=== PATIENT | female | born 1950 | race Caucasian/White ===

== ENCOUNTER 2016-05-06 15:06 | Emergency (ER) | payer MEDICARE, OTHER ==
[~2016-05-06 15:06] MED LIST: ATEN50TA2; AVAP150T; AVAP150T OR; AVAP75TA5; CENTRUM VITAMINS; CENTRUM VITAMINS PO; CITRACAL PO; CITRICAL; DIAZ5TAB; DIAZ5TAB OR; GLUC500T; GLUC500T OR; HYDR10TA2; LEVO25TABR; LIPI10TA; LOVAZA; LOVAZA PO; NEUR300C; NEUR300C OR; NEUR400C; NEUR400C OR; PERSERVISION PO; PLAV75TA2; PLAV75TA2 OR; PRESERVISION; PROP40TA PO; SYNT125T; VALI5TAB; VALT500T; [UNRECOGNIZED DRUG - OTHER]
--- NOTE | 2016-05-06 18:15 | EDDOCDS ---
Physician Documentation [facility] Name: Amie Correa Age: 65 yrs Sex: Female : 1950 Arrival Date: 05/06/2016 Time: 15:06 Bed PR Private MD: [place] [facility] [place]position: 05/06/16 18:03 Discharged to Home/Self Care. Impression: Strain of other muscle(s) and tendon(s) at lower leg level, left leg. - Condition is Stable. - Discharge Instructions: Leg Cramps, Muscle Strain. - Medication Reconciliation, Local Pharmacy Hours form. - Follow up: Ovi Yun; When: Call to arrange an appointment; Reason: Recheck today's complaints, Continuance of care. - Problem is new. - Symptoms are unchanged. Historical: - Allergies: Aspirin (blood pressure/pulse increase); NSAIDS (HR/bP increase); Latex (martinez); SALICYLATES (bp/hr increase); Caffeine-Sodium Benzoate (irregular heart beat); - Home Meds: 1. amlodipine 10 mg Oral tab 1 tab once daily 2. Avapro 300 mg Oral tab 1 tab once daily 3. carvedilol 3.125 mg oral tab 1 tab 2 times per day 4. diazepam 5 mg Oral tab 1 tab as needed 5. metformin 500 mg Oral Tb24 1 tab 2 times per day 6. Neurontin 400 mg Oral cap 1 cap 3 times per day 7. Plavix 75 mg Oral tab 1 tab once daily 8. Lipitor 20 mg Oral tab 1 tab once daily 9. 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 No barriers to communication noted, The patient speaks fluent Portuguese. - Family history: Not pertinent. - : The pt / caregiver states he / she is not on anticoagulants. Home medication list is obtained from the patient. - Exposure Risk Screening:: None identified. Vital Signs: 05/06 15:08 Pulse 70; Resp 18; Pulse Ox 100% ; Weight 83.91 kg / 184.99 lbs; Height 5 ft. 5 in. elp (165.10 cm); Pain 6/10; 18:08 BP 153 / 71; Pulse 74; Resp 18; Temp 99.4(T); Pulse Ox 98% on R/A; Pain 4/10; ar3 15:08 Body Mass Index 30.79 (83.91 kg, 165.10 cm) elp 15:08 COULD NOT GET BP, COULD NOT GET TEMP. elp MDM: 16:44 [facility] Payment Agreement was scanned into [facility] and attached to record. kf3 17:24 Financial registration complete. kf3 17:29 Tibia/Fibula Ordered. EDMS Signatures: Dispatcher [employer] EDMS Sari Tarango RN RN dls Rod Valadez, Reg Reg kf3 Mariela Valero RN RN rs3 Sukhwinder Sears, PA PA mo1 The chart was reviewed and I authenticate all verbal orders and agree with the evaluation and treatment provided.Attachments: 16:44 [facility] Payment Agreement kf3 MTDD
--- NOTE | 2016-05-06 18:15 | EDDOCDS ---
Nurse's Notes [facility] Name: Amie Correa Age: 65 yrs Sex: Female : 1950 Arrival Date: 05/06/2016 Time: 15:06 Bed PR1 / 25 Private MD: JANE Hanley Diagnosis: Strain of other muscle(s) and tendon(s) at lower leg level, left leg Presentation: 05/06 15:17 Presenting complaint: Patient states: was stepping over stuff left leg gave out, felt rs3 severe pain in Left calf. Adult Sepsis Screening: The patient does not have new or worsening altered mentation. Patient's respiratory rate is less than 22. Systolic blood pressure is greater than 100. Patient has a qSOFA score of 0- Negative Sepsis Screen. Suicide/Homicide risk assessment- the patient denies having any suicidal and/or homicidal ideations and does not present with any other emotional, behavioral or mental health complaints. Status: Patient is not a children's service worker or dependent. Transition of care: patient was not received from another setting of care. 15:17 Acuity: SANKET Level 4 rs3 15:17 Method Of Arrival: Wheelchair rs3 Triage Assessment: 15:23 General: Appears in no apparent distress. Pain: Location: left calf. rs3 Historical: - Allergies: Aspirin (blood pressure/pulse increase); NSAIDS (HR/bP increase); Latex (martinez); SALICYLATES (bp/hr increase); Caffeine-Sodium Benzoate (irregular heart beat); - Home Meds: 1. amlodipine 10 mg Oral tab 1 tab once daily 2. Avapro 300 mg Oral tab 1 tab once daily 3. carvedilol 3.125 mg oral tab 1 tab 2 times per day 4. diazepam 5 mg Oral tab 1 tab as needed 5. metformin 500 mg Oral Tb24 1 tab 2 times per day 6. Neurontin 400 mg Oral cap 1 cap 3 times per day 7. Plavix 75 mg Oral tab 1 tab once daily 8. Lipitor 20 mg Oral tab 1 tab once daily 9. 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 No barriers to communication noted, The patient speaks fluent Bulgarian. - Family history: Not pertinent. - : The pt / caregiver states he / she is not on anticoagulants. Home medication list is obtained from the patient. - Exposure Risk Screening:: None identified. Screenin:12 Screening information is obtained from the patient. Primary language is Bulgarian. Fall dls risk: No risks identified. Assistance ADL's: requires no assistance with activities of daily living. Abuse/DV Screen: The patient / caregiver reports he/she is: not in a situation that causes fear, pain or injury. Nutritional screening: No deficits noted. Advance Directives: Currently, there is no health care proxy. There is no active DNR order. There is no living will. There is no Power of Process Improvement Engineer. Advance directive information has not previously been placed in an [facility] medical record. home support is adequate. Assessment: 18:12 General: Appears uncomfortable, well developed, Behavior is cooperative. Awake, alert, dls oriented. Awake, alert, oriented. Skin warm and dry. Moves all extremities. Bilateral breath sounds clear. Respirations unlabored. Abdomen soft, non-tender. No apparent distress. The patient / caregiver is instructed regarding the plan of care and ED course. Physical assessment to be completed by PA/EDMD. Vital Signs: 15:08 Pulse 70; Resp 18; Pulse Ox 100% ; Weight 83.91 kg; Height 5 ft. 5 in. (165.10 cm); elp Pain 6/10; 18:08 BP 153 / 71; Pulse 74; Resp 18; Temp 99.4(T); Pulse Ox 98% on R/A; Pain 4/10; ar3 15:08 Body Mass Index 30.79 (83.91 kg, 165.10 cm) elp 15:08 COULD NOT GET BP, COULD NOT GET TEMP. el Vitals: 15:08 Log In Time: May 06, 2016 at 15:05. el ED Course: 15:07 Patient visited by Cassandra Alejo PCA. elp 15:07 Dayan [facility] [place] is Private Physician. elp 15:07 Patient moved to Waiting elp 15:09 Patient visited by Patchen, Cassandra, LIEUTENANT GENERAL. elp 15:09 Patient moved to Pre RCE elp 15:19 Triage Initiated rs3 16:03 Patient moved to Triage 2 dls 16:10 Patient visited by Sari Tarango RN. dls 16:44 [facility] Payment Agreement was scanned into [employer] and attached to record. kf3 17:00 Sukhwinder Sears PA is [facility]. mo1 17:00 Michele Ventura MD is Attending Physician. mo1 17:19 Patient visited by Sukhwinder Sears PA. mo1 17:26 Patient moved to TR2 ar3 18:03 Ovi Yun is Referral Physician. mo1 18:04 Patient moved to PR1 / 25 ar3 18:09 Patient visited by Jackelyn Nicholas PCA. ar3 18:12 Accompanied by Significant Other, Patient has correct armband on for positive dls identification. Bed in low position. Call light in reach. 18:14 No IV's were initiated during this patient's visit. No procedures done that require dls assistance. Order Results: There are currently no results for this order. Outcome: 18:03 Discharge ordered by Provider. mo1 18:12 The following High Risk Discharge criteria are identified: None. Discharged to home via dls wheelchair, with significant other. Condition: stable. Discharge instructions given to patient, Instructed on discharge instructions, follow up and referral plans. Demonstrated understanding of instructions, Pt was receptive of discharge instructions/ teaching. No special radiology studies were completed. 18:14 Discharge Assessment: Patient awake, alert and oriented x 3. No cognitive and/or dls functional deficits noted. Patient verbalized understanding of disposition instructions. patient administered narcotics - no. Property sent home with patient. 18:14 Patient left the ED. dls Signatures: Sari Tarango, KENDELL RN dls JesserRod, Reg Reg kf3 Mariela Valero RN RN rs3 Jackelyn Nicholas, CHARLIE LIEUTENANT GENERAL ar3 Sukhwinder Sears PA PA mo1 Cassandra Alejo, LIEUTENANT GENERAL LIEUTENANT GENERAL elp MTDD
--- NOTE | 2016-05-06 18:34 | REP ---
Clinical: Trauma. Technique: AP and lateral views of the left tibia / fibula. Findings: No definite acute fracture or dislocation is appreciated. Degenerative changes at the knee and ankle joint noted. Surrounding soft tissues unremarkable. Impression: No obvious acute fracture or dislocation. Signed by Ravi Martin MD 05/06/2016 06:26 P
--- NOTE | 2016-05-08 19:15 | EDDOCDS ---
Physician Documentation [facility] Name: Amie Correa Age: 65 yrs Sex: Female : 1950 Arrival Date: 05/06/2016 Time: 15:06 Bed PR Private MD: Dayan [facility] [place] Disposition: 05/06/16 18:03 Discharged to Home/Self Care. Impression: Strain of other muscle(s) and tendon(s) at lower leg level, left leg. - Condition is Stable. - Discharge Instructions: Leg Cramps, Muscle Strain. - Medication Reconciliation, Local Pharmacy Hours form. - Follow up: Ovi Yun; When: Call to arrange an appointment; Reason: Recheck today's complaints, Continuance of care. - Problem is new. - Symptoms are unchanged. Historical: - Allergies: Aspirin (blood pressure/pulse increase); NSAIDS (HR/bP increase); Latex (martinez); SALICYLATES (bp/hr increase); Caffeine-Sodium Benzoate (irregular heart beat); - Home Meds: 1. amlodipine 10 mg Oral tab 1 tab once daily 2. Avapro 300 mg Oral tab 1 tab once daily 3. carvedilol 3.125 mg oral tab 1 tab 2 times per day 4. diazepam 5 mg Oral tab 1 tab as needed 5. metformin 500 mg Oral Tb24 1 tab 2 times per day 6. Neurontin 400 mg Oral cap 1 cap 3 times per day 7. Plavix 75 mg Oral tab 1 tab once daily 8. Lipitor 20 mg Oral tab 1 tab once daily 9. 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 No barriers to communication noted, The patient speaks fluent Armenian. - Family history: Not pertinent. - : The pt / caregiver states he / she is not on anticoagulants. Home medication list is obtained from the patient. - Exposure Risk Screening:: None identified. Vital Signs: 05/06 15:08 Pulse 70; Resp 18; Pulse Ox 100% ; Weight 83.91 kg / 184.99 lbs; Height 5 ft. 5 in. elp (165.10 cm); Pain 6/10; 18:08 BP 153 / 71; Pulse 74; Resp 18; Temp 99.4(T); Pulse Ox 98% on R/A; Pain 4/10; ar3 15:08 Body Mass Index 30.79 (83.91 kg, 165.10 cm) elp 15:08 COULD NOT GET BP, COULD NOT GET TEMP. elp MDM: 16:44 [facility] [place] Payment Agreement was scanned into [employer] and attached to record. kf3 17:24 Financial registration complete. kf3 17:29 Tibia/Fibula Ordered. EDMS 22:32 T-Sheet-- Draft Copy was scanned into [employer] and attached to record. klr Signatures: Dispatcher [employer] EDSari Wiseman RN RN dls Rod Valadez, Reg Reg kf3 Mariela Valero RN RN rs3 Sukhwinder Sears, PA PA mo1 Annemarie Acosta klr The chart was reviewed and I authenticate all verbal orders and agree with the evaluation and treatment provided.Attachments: 16:44 [facility] Payment Agreement kf3 22:32 T-Sheet-- Draft Copy klr Chart Complete MTDD
--- NOTE | 2016-05-08 19:15 | EDDOCDS ---
Physician Documentation [facility] Name: Amie Correa Age: 65 yrs Sex: Female : 1950 Arrival Date: 05/06/2016 Time: 15:06 Bed PR Private MD: Dayan [facility] [place] Disposition: 05/06/16 18:03 Discharged to Home/Self Care. Impression: Strain of other muscle(s) and tendon(s) at lower leg level, left leg. - Condition is Stable. - Discharge Instructions: Leg Cramps, Muscle Strain. - Medication Reconciliation, Local Pharmacy Hours form. - Follow up: Ovi Yun; When: Call to arrange an appointment; Reason: Recheck today's complaints, Continuance of care. - Problem is new. - Symptoms are unchanged. Historical: - Allergies: Aspirin (blood pressure/pulse increase); NSAIDS (HR/bP increase); Latex (martinez); SALICYLATES (bp/hr increase); Caffeine-Sodium Benzoate (irregular heart beat); - Home Meds: 1. amlodipine 10 mg Oral tab 1 tab once daily 2. Avapro 300 mg Oral tab 1 tab once daily 3. carvedilol 3.125 mg oral tab 1 tab 2 times per day 4. diazepam 5 mg Oral tab 1 tab as needed 5. metformin 500 mg Oral Tb24 1 tab 2 times per day 6. Neurontin 400 mg Oral cap 1 cap 3 times per day 7. Plavix 75 mg Oral tab 1 tab once daily 8. Lipitor 20 mg Oral tab 1 tab once daily 9. 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 No barriers to communication noted, The patient speaks fluent Mongolian. - Family history: Not pertinent. - : The pt / caregiver states he / she is not on anticoagulants. Home medication list is obtained from the patient. - Exposure Risk Screening:: None identified. Vital Signs: 05/06 15:08 Pulse 70; Resp 18; Pulse Ox 100% ; Weight 83.91 kg / 184.99 lbs; Height 5 ft. 5 in. elp (165.10 cm); Pain 6/10; 18:08 BP 153 / 71; Pulse 74; Resp 18; Temp 99.4(T); Pulse Ox 98% on R/A; Pain 4/10; ar3 15:08 Body Mass Index 30.79 (83.91 kg, 165.10 cm) elp 15:08 COULD NOT GET BP, COULD NOT GET TEMP. elp MDM: 16:44 [facility] [place] Payment Agreement was scanned into [employer] and attached to record. kf3 17:24 Financial registration complete. kf3 17:29 Tibia/Fibula Ordered. EDMS 22:32 T-Sheet-- Draft Copy was scanned into [employer] and attached to record. klr Signatures: Dispatcher [employer] EDSari Wiseman RN RN dls Rod Valadez, Reg Reg kf3 Mariela Valero RN RN rs3 Sukhwinder Sears, PA PA mo1 Annemarie Acosta klr The chart was reviewed and I authenticate all verbal orders and agree with the evaluation and treatment provided.Attachments: 16:44 [facility] [place] Payment Agreement kf3 22:32 T-Sheet-- Draft Copy klr Chart Complete MTDD
--- NOTE | 2016-05-08 19:15 | EDDOCDS ---
Nurse's Notes [facility] Name: Amie Correa Age: 65 yrs Sex: Female : 1950 Arrival Date: 05/06/2016 Time: 15:06 Bed PR1 / 25 Private MD: JANE Hanley Diagnosis: Strain of other muscle(s) and tendon(s) at lower leg level, left leg Presentation: 05/06 15:17 Presenting complaint: Patient states: was stepping over stuff left leg gave out, felt rs3 severe pain in Left calf. Adult Sepsis Screening: The patient does not have new or worsening altered mentation. Patient's respiratory rate is less than 22. Systolic blood pressure is greater than 100. Patient has a qSOFA score of 0- Negative Sepsis Screen. Suicide/Homicide risk assessment- the patient denies having any suicidal and/or homicidal ideations and does not present with any other emotional, behavioral or mental health complaints. Status: Patient is not a cnc service technician or dependent. Transition of care: patient was not received from another setting of care. 15:17 Acuity: SANKET Level 4 rs3 15:17 Method Of Arrival: Wheelchair rs3 Triage Assessment: 15:23 General: Appears in no apparent distress. Pain: Location: left calf. rs3 Historical: - Allergies: Aspirin (blood pressure/pulse increase); NSAIDS (HR/bP increase); Latex (martinez); SALICYLATES (bp/hr increase); Caffeine-Sodium Benzoate (irregular heart beat); - Home Meds: 1. amlodipine 10 mg Oral tab 1 tab once daily 2. Avapro 300 mg Oral tab 1 tab once daily 3. carvedilol 3.125 mg oral tab 1 tab 2 times per day 4. diazepam 5 mg Oral tab 1 tab as needed 5. metformin 500 mg Oral Tb24 1 tab 2 times per day 6. Neurontin 400 mg Oral cap 1 cap 3 times per day 7. Plavix 75 mg Oral tab 1 tab once daily 8. Lipitor 20 mg Oral tab 1 tab once daily 9. 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 No barriers to communication noted, The patient speaks fluent Belarusian. - Family history: Not pertinent. - : The pt / caregiver states he / she is not on anticoagulants. Home medication list is obtained from the patient. - Exposure Risk Screening:: None identified. Screenin:12 Screening information is obtained from the patient. Primary language is Belarusian. Fall dls risk: No risks identified. Assistance ADL's: requires no assistance with activities of daily living. Abuse/DV Screen: The patient / caregiver reports he/she is: not in a situation that causes fear, pain or injury. Nutritional screening: No deficits noted. Advance Directives: Currently, there is no health care proxy. There is no active DNR order. There is no living will. There is no Power of Flight Operations Inspector. Advance directive information has not previously been placed in an [facility] medical record. home support is adequate. Assessment: 18:12 General: Appears uncomfortable, well developed, Behavior is cooperative. Awake, alert, dls oriented. Awake, alert, oriented. Skin warm and dry. Moves all extremities. Bilateral breath sounds clear. Respirations unlabored. Abdomen soft, non-tender. No apparent distress. The patient / caregiver is instructed regarding the plan of care and ED course. Physical assessment to be completed by PA/EDMD. Vital Signs: 15:08 Pulse 70; Resp 18; Pulse Ox 100% ; Weight 83.91 kg; Height 5 ft. 5 in. (165.10 cm); elp Pain 6/10; 18:08 BP 153 / 71; Pulse 74; Resp 18; Temp 99.4(T); Pulse Ox 98% on R/A; Pain 4/10; ar3 15:08 Body Mass Index 30.79 (83.91 kg, 165.10 cm) elp 15:08 COULD NOT GET BP, COULD NOT GET TEMP. el Vitals: 15:08 Log In Time: May 06, 2016 at 15:05. el ED Course: 15:07 Patient visited by Cassandra Alejo PCA. elp 15:07 Dayan [facility] [place] is Private Physician. elp 15:07 Patient moved to Waiting elp 15:09 Patient visited by Cassandra Alejo PCA. elp 15:09 Patient moved to Pre RCE elp 15:19 Triage Initiated rs3 16:03 Patient moved to Triage 2 dls 16:10 Patient visited by Sari Tarango RN. dls 16:44 [facility] Payment Agreement was scanned into [employer] and attached to record. kf3 17:00 Sukhwinder Sears PA is PHCP. mo1 17:00 Michele Ventrua MD is Attending Physician. mo1 17:19 Patient visited by Sukhwinder Sears PA. mo1 17:26 Patient moved to TR2 ar3 18:03 Ovi Yun is Referral Physician. mo1 18:04 Patient moved to PR1 / 25 ar3 18:09 Patient visited by Jackelyn Nicholas PCA. ar3 18:12 Accompanied by Significant Other, Patient has correct armband on for positive dls identification. Bed in low position. Call light in reach. 18:14 No IV's were initiated during this patient's visit. No procedures done that require dls assistance. 18:34 Tibia/Fibula Returned. EDMS 22:32 T-Sheet-- Draft Copy was scanned into [employer] and attached to record. klr Order Results: Radiology Order: Tibia/Fibula Test: Tibia/Fibula REASON FOR EXAMINATION: Trauma; Clinical: Trauma.; ; Technique: AP and lateral views of the left tibia / fibula.; ; Findings:; No definite acute fracture or dislocation is appreciated. Degenerative changes; at the knee and ankle joint noted. Surrounding soft tissues unremarkable.; ; Impression:; No obvious acute fracture or dislocation.; ; ; Signed by; Ravi Martin MD 05/06/2016 06:26 P; Outcome: 18:03 Discharge ordered by Provider. mo1 18:12 The following High Risk Discharge criteria are identified: None. Discharged to home via dls wheelchair, with significant other. Condition: stable. Discharge instructions given to patient, Instructed on discharge instructions, follow up and referral plans. Demonstrated understanding of instructions, Pt was receptive of discharge instructions/ teaching. No special radiology studies were completed. 18:14 Discharge Assessment: Patient awake, alert and oriented x 3. No cognitive and/or dls functional deficits noted. Patient verbalized understanding of disposition instructions. patient administered narcotics - no. Property sent home with patient. 18:14 Patient left the ED. dls Signatures: Dispatcher [employer] EDMS Sukhdeep, Sari, KENDELL RN dls AntelmomgRod webber, Reg Reg kf3 [facility],KENDELL Sierra RN rs3 Jackelyn Nicholas, RECLAMATION SUPERVISOR RECLAMATION SUPERVISOR ar3 Sukhwinder Sears PA PA mo1 Melo, Cassandra, RECLAMATION SUPERVISOR RECLAMATION SUPERVISOR elp Annemarie Acosta Chart Complete MTDD
== END 2016-05-06 18:14 | disposition home or self-care (01) ==
LOC: M ED 15:06
DX: S86.912A Strain of unspecified muscle(s) and tendon(s) at lower leg level, left leg, initial encounter (principal); X50.9XXA Other and unspecified overexertion or strenuous movements or postures, initial encounter; Y92.019 Unspecified place in single-family (private) house as the place of occurrence of the external cause; Y93.01 Activity, walking, marching and hiking; Y99.8 Other external cause status; F41.9 Anxiety disorder, unspecified; Z85.3 Personal history of malignant neoplasm of breast; I25.10 Atherosclerotic heart disease of native coronary artery without angina pectoris; E11.9 Type 2 diabetes mellitus without complications; E78.00 Pure hypercholesterolemia, unspecified; I10 Essential (primary) hypertension; R56.9 Unspecified convulsions; Z79.899 Other long term (current) drug therapy; Z79.84 Long term (current) use of oral hypoglycemic drugs; Z79.02 Long term (current) use of antithrombotics/antiplatelets; Z88.6 Allergy status to analgesic agent; Z91.040 Latex allergy status; Z88.8 Allergy status to other drugs, medicaments and biological substances

== ENCOUNTER → 2016-05-09 | Outpatient (CLI) | payer MEDICARE, OTHER ==
--- NOTE | 2016-05-09 14:36 | REP ---
LEFT LOWER EXTREMITY VENOUS DOPPLER: 05/09/2016 INDICATION: Left leg pain and swelling, exclude deep venous thrombosis. TECHNIQUE: Color flow Doppler, spectral wave, and singer-scale imaging were used to evaluate the deep lower extremity veins at common femoral, superficial femoral, and popliteal venous levels. FINDINGS: There is normal compressibility of veins at the above stated levels. There is normal response to augmentation of flow. The profunda femoris vein is also patent. IMPRESSION: No evidence of DVT in the left lower extremity. MTDD
== END ==
LOC: M RAD 12:46
DX: M79.89 Other specified soft tissue disorders (principal); M79.662 Pain in left lower leg

== ENCOUNTER 2016-05-12 19:28 | Emergency (ER) | payer MEDICARE, OTHER ==
--- NOTE | 2016-05-12 22:42 | EDDOCDS ---
Physician Documentation [facility] Name: Amie Correa Age: 66 yrs Sex: Female : 1950 Arrival Date: 05/12/2016 Time: 19:28 Bed TR8 Private MD: Dayan [facility] [place] Disposition: 05/12/16 22:28 Discharged to Home/Self Care. Impression: Other injury of other muscle(s) and tendon(s) at lower leg level, left leg. - Condition is Stable. - Discharge Instructions: Contusion, Muscle Strain. - Prescriptions for oxycodone 5 mg Oral Tablet - take 1 tablet by ORAL route every 4 hours As needed MDD: 6 tabs; 20 tablet. - Medication Reconciliation, Local Pharmacy Hours form. - Follow up: Song Ledesma; When: Call to arrange an appointment; Reason: Recheck today's complaints, Continuance of care. - Problem is new. - Symptoms are unchanged. Historical: - Allergies: SALICYLATES (bp/hr increase); NSAIDS (HR/bP increase); Latex (martinez); Caffeine-Sodium Benzoate (irregular heart beat); Aspirin (blood pressure/pulse increase); - Home Meds: 1. amlodipine 10 mg Oral tab 1 tab once daily (Last dose: 05/12/2016) 2. Avapro 300 mg Oral tab 1 tab once daily (Last dose: 05/12/2016) 3. carvedilol 3.125 mg oral tab 1 tab 2 times per day (Last dose: 05/12/2016 08:00) 4. diazepam 5 mg Oral tab 1 tab as needed (Last dose: Unknown) 5. labetalol 100 mg Oral tab 1 tab takes one dose if pressure not decreased takes a second dose (Last dose: Unknown) 6. Lipitor 20 mg Oral tab 1 tab once daily (Last dose: 05/12/2016) 7. metformin 500 mg Oral Tb24 1 tab 2 times per day (Last dose: 05/12/2016 08:00) 8. Neurontin 400 mg Oral cap 1 cap 3 times per day (Last dose: 05/12/2016 12:00) 9. 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 No barriers to communication noted, The patient speaks fluent Nigerian, Speaks appropriately for age. - Family history: Not pertinent. - : The pt / caregiver states he / she is on anticoagulants: Plavix. Home medication list is obtained from the patient. - Exposure Risk Screening:: None identified. Vital Signs: 05/12 19:31 BP 133 / 70 RA Sitting (auto/reg); Pulse 70 RA; Resp 18 S; Temp 97.5(O); Pulse Ox 96% mt4 on R/A; Weight 81.65 kg / 180.01 lbs (R); Height 5 ft. 5 in. (165.10 cm) (R); Pain 5/10; 19:31 Body Mass Index 29.95 (81.65 kg, 165.10 cm) mt4 MDM: 22:40 Financial registration complete. gjb Signatures: Sameera Wilson, RN RN kmg1 Marvin Christian RN RN Sukhwinder Bartlett PA PA mo1 Carey Conn BAILEY
--- NOTE | 2016-05-12 22:43 | EDDOCDS ---
Nurse's Notes [facility] Name: Amie Correa Age: 66 yrs Sex: Female : 1950 Arrival Date: 05/12/2016 Time: 19:28 Bed TR8 Private MD: JANE Hanley Diagnosis: Other injury of other muscle(s) and tendon(s) at lower leg level, left leg Presentation: 05/12 19:35 Presenting complaint: Patient states: Injured left lower leg last Saturday. Was seen here km for same. Followed up at [facility] and went to PT. Now has increased swelling, pain, and bruising. Patient is on Plavix. Adult Sepsis Screening: The patient does not have new or worsening altered mentation. Patient's respiratory rate is less than 22. Systolic blood pressure is greater than 100. Patient has a qSOFA score of 0- Negative Sepsis Screen. Suicide/Homicide risk assessment- the patient denies having any suicidal and/or homicidal ideations and does not present with any other emotional, behavioral or mental health complaints. Status: Patient is not a food service team member or dependent. Transition of care: patient was not received from another setting of care. 19:35 [place]: [place] 4 [facility] [place] Method Of Arrival: [place] [facility] [place] Assessment: 19:41 General: Appears in no apparent distress, comfortable, Behavior is appropriate for age, kmg1 cooperative. Pain: Location: left calf. Musculoskeletal: Reports pain in left leg. Historical: - Allergies: SALICYLATES (bp/hr increase); NSAIDS (HR/bP increase); Latex (martinez); Caffeine-Sodium Benzoate (irregular heart beat); Aspirin (blood pressure/pulse increase); - Home Meds: 1. amlodipine 10 mg Oral tab 1 tab once daily (Last dose: 05/12/2016) 2. Avapro 300 mg Oral tab 1 tab once daily (Last dose: 05/12/2016) 3. carvedilol 3.125 mg oral tab 1 tab 2 times per day (Last dose: 05/12/2016 08:00) 4. diazepam 5 mg Oral tab 1 tab as needed (Last dose: Unknown) 5. labetalol 100 mg Oral tab 1 tab takes one dose if pressure not decreased takes a second dose (Last dose: Unknown) 6. Lipitor 20 mg Oral tab 1 tab once daily (Last dose: 05/12/2016) 7. metformin 500 mg Oral Tb24 1 tab 2 times per day (Last dose: 05/12/2016 08:00) 8. Neurontin 400 mg Oral cap 1 cap 3 times per day (Last dose: 05/12/2016 12:00) 9. 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 No barriers to communication noted, The patient speaks fluent Hebrew, Speaks appropriately for age. - Family history: Not pertinent. - : The pt / caregiver states he / she is on anticoagulants: Plavix. Home medication list is obtained from the patient. - Exposure Risk Screening:: None identified. Screenin:39 Screening information is obtained from the patient. Fall risk: At risk due to poor eye cz sight. Assistance ADL's: requires no assistance with activities of daily living. Abuse/DV Screen: The patient / caregiver reports he/she is: not in a situation that causes fear, pain or injury. Nutritional screening: No deficits noted. home support is adequate. Assessment: 22:39 Reassessment: Patient appears in no apparent distress at this time. pt reassured after cz seeing P.A.. Vital Signs: 19:31 BP 133 / 70 RA Sitting (auto/reg); Pulse 70 RA; Resp 18 S; Temp 97.5(O); Pulse Ox 96% mt4 on R/A; Weight 81.65 kg (R); Height 5 ft. 5 in. (165.10 cm) (R); Pain 5/10; 19:31 Body Mass Index 29.95 (81.65 kg, 165.10 cm) mt4 Vitals: 19:31 Log In Time: May 12, 2016 at 19:28. mt4 ED Course: 19:30 Patient visited by Cyndie Irvin. mt4 19:30 Patient moved to Waiting mt4 19:31 JANE Hanley is Private Physician. mt4 19:33 Patient moved to Pre RCE mt4 19:38 Triage Initiated kmg1 21:53 Patient moved to Triage 1 jf3 22:04 Sukhwinder Sears PA is PHCP. mo1 22:04 Ted Ya DO is Attending Physician. mo1 22:27 Patient visited by Sukhwinder Sears PA. mo1 22:28 Song Ledesma is Referral Physician. mo1 22:39 Patient moved to TR8 cz 22:39 The patient / caregiver is instructed regarding the plan of care and ED course. cz 22:39 No IV's were initiated during this patient's visit. No procedures done that require cz assistance. Order Results: There are currently no results for this order. Outcome: 22:28 Discharge ordered by Provider. mo1 22:39 Discharge Assessment: Patient awake, alert and oriented x 3. No cognitive and/or cz functional deficits noted. Patient verbalized understanding of disposition instructions. patient administered narcotics - no. The following High Risk Discharge criteria are identified: None. Discharged to home ambulatory. Condition: stable. Discharge instructions given to patient, Instructed on discharge instructions, follow up and referral plans. medication usage, Demonstrated understanding of instructions, medications, Pt was receptive of discharge instructions/ teaching. Prescriptions given X 1. No special radiology studies were completed. Property :Personal belongings accompany Pt. 22:41 Patient left the ED. Signatures: Sameera Wilson, RN RN [facility] [place] Marvin Christian, KENDELL RDZ cz Albaro Cyndie mt4 Sukhwinder Sears PA PA mo1 Sincere Flores,KENDELL RDZ jf3 [facility]ERS[facility]
--- NOTE | 2016-05-14 23:43 | EDDOCDS ---
Nurse's Notes [facility] Name: Amie Correa Age: 66 yrs Sex: Female : 1950 Arrival Date: 05/12/2016 Time: 19:28 Bed TR8 Private MD: JANE Hanley Diagnosis: Other injury of other muscle(s) and tendon(s) at lower leg level, left leg Presentation: 05/12 19:35 Presenting complaint: Patient states: Injured left lower leg last Saturday. Was seen here km for same. Followed up at [facility] and went to PT. Now has increased swelling, pain, and bruising. Patient is on Plavix. Adult Sepsis Screening: The patient does not have new or worsening altered mentation. Patient's respiratory rate is less than 22. Systolic blood pressure is greater than 100. Patient has a qSOFA score of 0- Negative Sepsis Screen. Suicide/Homicide risk assessment- the patient denies having any suicidal and/or homicidal ideations and does not present with any other emotional, behavioral or mental health complaints. 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 Transition of care: patient was not received from another setting of care. 19:35 Acuity: [place] [facility] [place] Method Of Arrival: Walkin/Carried/As[place] [facility] [place] Assessment: 19:41 General: Appears in no apparent distress, comfortable, Behavior is appropriate for age, kmg1 cooperative. Pain: Location: left calf. Musculoskeletal: Reports pain in left leg. Historical: - Allergies: SALICYLATES (bp/hr increase); NSAIDS (HR/bP increase); Latex (martinez); Caffeine-Sodium Benzoate (irregular heart beat); Aspirin (blood pressure/pulse increase); - Home Meds: 1. amlodipine 10 mg Oral tab 1 tab once daily (Last dose: 05/12/2016) 2. Avapro 300 mg Oral tab 1 tab once daily (Last dose: 05/12/2016) 3. carvedilol 3.125 mg oral tab 1 tab 2 times per day (Last dose: 05/12/2016 08:00) 4. diazepam 5 mg Oral tab 1 tab as needed (Last dose: Unknown) 5. labetalol 100 mg Oral tab 1 tab takes one dose if pressure not decreased takes a second dose (Last dose: Unknown) 6. Lipitor 20 mg Oral tab 1 tab once daily (Last dose: 05/12/2016) 7. metformin 500 mg Oral Tb24 1 tab 2 times per day (Last dose: 05/12/2016 08:00) 8. Neurontin 400 mg Oral cap 1 cap 3 times per day (Last dose: 05/12/2016 12:00) 9. 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 No barriers to communication noted, The patient speaks fluent [place], Speaks appropriately for age. - Family history: Not pertinent. - : The pt / caregiver states he / she is on anticoagulants: Plavix. Home medication list is obtained from the patient. - Exposure Risk Screening:: None identified. Screenin:39 Screening information is obtained from the patient. Fall risk: At risk due to poor eye cz sight. Assistance ADL's: requires no assistance with activities of daily living. Abuse/DV Screen: The patient / caregiver reports he/she is: not in a situation that causes fear, pain or injury. Nutritional screening: No deficits noted. home support is adequate. Assessment: 22:39 Reassessment: Patient appears in no apparent distress at this time. pt reassured after cz seeing P.A.. Vital Signs: 19:31 BP 133 / 70 RA Sitting (auto/reg); Pulse 70 RA; Resp 18 S; Temp 97.5(O); Pulse Ox 96% mt4 on R/A; Weight 81.65 kg (R); Height 5 ft. 5 in. (165.10 cm) (R); Pain 5/10; 19:31 Body Mass Index 29.95 (81.65 kg, 165.10 cm) mt4 Vitals: 19:31 Log In Time: May 12, 2016 at 19:28. mt4 ED Course: 19:30 Patient visited by Cyndie Irvin. mt4 19:30 Patient moved to Waiting mt4 19:31 JANE Hanley is Private Physician. mt4 19:33 Patient moved to Pre RCE mt4 19:38 Triage Initiated kmg1 21:53 Patient moved to Triage 1 jf3 22:04 Sukhwinder Sears PA is PHCP. mo1 22:04 Ted Ya DO is Attending Physician. mo1 22:27 Patient visited by Sukhwinder Sears PA. mo1 22:28 Song Ledesma is Referral Physician. mo1 22:39 Patient moved to TR8 cz 22:39 The patient / caregiver is instructed regarding the plan of care and ED course. cz 22:39 No IV's were initiated during this patient's visit. No procedures done that require cz assistance. 22:52 [facility] Payment Agreement was scanned into [employer] and attached to record. gjb 05/13 17:46 T-Sheet-- Draft Copy was scanned into [employer] and attached to record. klr Order Results: There are currently no results for this order. Outcome: 05/12 22:28 Discharge ordered by Provider. mo1 22:39 Discharge Assessment: Patient awake, alert and oriented x 3. No cognitive and/or cz functional deficits noted. Patient verbalized understanding of disposition instructions. patient administered narcotics - no. The following High Risk Discharge criteria are identified: None. Discharged to home ambulatory. Condition: stable. Discharge instructions given to patient, Instructed on discharge instructions, follow up and referral plans. medication usage, Demonstrated understanding of instructions, medications, Pt was receptive of discharge instructions/ teaching. Prescriptions given X 1. No special radiology studies were completed. Property :Personal belongings accompany Pt. 22:41 Patient left the ED. cz Signatures: Sameera Wilson RN RN [facility] [place] Marvin Christian RN RN cz Thomas, Melissa mt4 Sukhwinder Sears PA PA mo1 Sincere Flores,KENDELL RN Carey Rai Kathie klr Chart Complete MTDD
--- NOTE | 2016-05-14 23:43 | EDDOCDS ---
Physician Documentation [facility] Name: Amie Correa Age: 66 yrs Sex: Female : 1950 Arrival Date: 05/12/2016 Time: 19:28 Bed TR8 Private MD: Dayan [facility] [place] Disposition: 05/12/16 22:28 Discharged to Home/Self Care. Impression: Other injury of other muscle(s) and tendon(s) at lower leg level, left leg. - Condition is Stable. - Discharge Instructions: Contusion, Muscle Strain. - Prescriptions for oxycodone 5 mg Oral Tablet - take 1 tablet by ORAL route every 4 hours As needed MDD: 6 tabs; 20 tablet. - Medication Reconciliation, Local Pharmacy Hours form. - Follow up: Song Ledesma; When: Call to arrange an appointment; Reason: Recheck today's complaints, Continuance of care. - Problem is new. - Symptoms are unchanged. Historical: - Allergies: SALICYLATES (bp/hr increase); NSAIDS (HR/bP increase); Latex (martinez); Caffeine-Sodium Benzoate (irregular heart beat); Aspirin (blood pressure/pulse increase); - Home Meds: 1. amlodipine 10 mg Oral tab 1 tab once daily (Last dose: 05/12/2016) 2. Avapro 300 mg Oral tab 1 tab once daily (Last dose: 05/12/2016) 3. carvedilol 3.125 mg oral tab 1 tab 2 times per day (Last dose: 05/12/2016 08:00) 4. diazepam 5 mg Oral tab 1 tab as needed (Last dose: Unknown) 5. labetalol 100 mg Oral tab 1 tab takes one dose if pressure not decreased takes a second dose (Last dose: Unknown) 6. Lipitor 20 mg Oral tab 1 tab once daily (Last dose: 05/12/2016) 7. metformin 500 mg Oral Tb24 1 tab 2 times per day (Last dose: 05/12/2016 08:00) 8. Neurontin 400 mg Oral cap 1 cap 3 times per day (Last dose: 05/12/2016 12:00) 9. 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 No barriers to communication noted, The patient speaks fluent Brazilian, Speaks appropriately for age. - Family history: Not pertinent. - : The pt / caregiver states he / she is on anticoagulants: Plavix. Home medication list is obtained from the patient. - Exposure Risk Screening:: None identified. Vital Signs: 05/12 19:31 BP 133 / 70 RA Sitting (auto/reg); Pulse 70 RA; Resp 18 S; Temp 97.5(O); Pulse Ox 96% mt4 on R/A; Weight 81.65 kg / 180.01 lbs (R); Height 5 ft. 5 in. (165.10 cm) (R); Pain 5/10; 19:31 Body Mass Index 29.95 (81.65 kg, 165.10 cm) mt4 MDM: 22:40 Financial registration complete. [facility] 22:52 [facility] Payment Agreement was scanned into [employer] and attached to record. [facility] 05/13 17:46 T-Sheet-- Draft Copy was scanned into [employer] and attached to record. klr Signatures: Sameera Wilson RN RN kmg1 Marvin Christian RN RN cz O'Hagan, Michael, PA PA marvel1 Carey Conn Annemarie Vargas The chart was reviewed and I authenticate all verbal orders and agree with the evaluation and treatment provided.Attachments: 05/12 22:52 [facility] Payment Agreement [facility] 05/13 17:46 T-Sheet-- Draft Copy klr Chart Complete MTDD
--- NOTE | 2016-05-14 23:43 | EDDOCDS ---
Physician Documentation [facility] Name: Amie Correa Age: 66 yrs Sex: Female : 1950 Arrival Date: 05/12/2016 Time: 19:28 Bed TR8 Private MD: Dayan [facility] Disposition: 05/12/16 22:28 Discharged to Home/Self Care. Impression: Other injury of other muscle(s) and tendon(s) at lower leg level, left leg. - Condition is Stable. - Discharge Instructions: Contusion, Muscle Strain. - Prescriptions for oxycodone 5 mg Oral Tablet - take 1 tablet by ORAL route every 4 hours As needed MDD: 6 tabs; 20 tablet. - Medication Reconciliation, Local Pharmacy Hours form. - Follow up: Song Ledesma; When: Call to arrange an appointment; Reason: Recheck today's complaints, Continuance of care. - Problem is new. - Symptoms are unchanged. Historical: - Allergies: SALICYLATES (bp/hr increase); NSAIDS (HR/bP increase); Latex (martinez); Caffeine-Sodium Benzoate (irregular heart beat); Aspirin (blood pressure/pulse increase); - Home Meds: 1. amlodipine 10 mg Oral tab 1 tab once daily (Last dose: 05/12/2016) 2. Avapro 300 mg Oral tab 1 tab once daily (Last dose: 05/12/2016) 3. carvedilol 3.125 mg oral tab 1 tab 2 times per day (Last dose: 05/12/2016 08:00) 4. diazepam 5 mg Oral tab 1 tab as needed (Last dose: Unknown) 5. labetalol 100 mg Oral tab 1 tab takes one dose if pressure not decreased takes a second dose (Last dose: Unknown) 6. Lipitor 20 mg Oral tab 1 tab once daily (Last dose: 05/12/2016) 7. metformin 500 mg Oral Tb24 1 tab 2 times per day (Last dose: 05/12/2016 08:00) 8. Neurontin 400 mg Oral cap 1 cap 3 times per day (Last dose: 05/12/2016 12:00) 9. 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 No barriers to communication noted, The patient speaks fluent North Korean, Speaks appropriately for age. - Family history: Not pertinent. - : The pt / caregiver states he / she is on anticoagulants: Plavix. Home medication list is obtained from the patient. - Exposure Risk Screening:: None identified. Vital Signs: 05/12 19:31 BP 133 / 70 RA Sitting (auto/reg); Pulse 70 RA; Resp 18 S; Temp 97.5(O); Pulse Ox 96% mt4 on R/A; Weight 81.65 kg / 180.01 lbs (R); Height 5 ft. 5 in. (165.10 cm) (R); Pain 5/10; 19:31 Body Mass Index 29.95 (81.65 kg, 165.10 cm) mt4 MDM: 22:40 Financial registration complete. [facility] 22:52 [facility] Payment Agreement was scanned into [employer] and attached to record. [facility] 05/13 17:46 T-Sheet-- Draft Copy was scanned into [employer] and attached to record. klr Signatures: Sameera Wilson RN RN kmg1 Marvin Christian RN RN cz O'Hagan, Michael, PA PA marvel1 Carey Conn Annemarie Vargas The chart was reviewed and I authenticate all verbal orders and agree with the evaluation and treatment provided.Attachments: 05/12 22:52 [facility] Payment Agreement [facility] 05/13 17:46 T-Sheet-- Draft Copy klr Chart Complete MTDD
== END 2016-05-12 22:41 | disposition home or self-care (01) ==
LOC: M ED 19:28
DX: S86.812D Strain of other muscle(s) and tendon(s) at lower leg level, left leg, subsequent encounter (principal); X58.XXXD Exposure to other specified factors, subsequent encounter; Y92.89 Other specified places as the place of occurrence of the external cause; F41.9 Anxiety disorder, unspecified; Z85.3 Personal history of malignant neoplasm of breast; I10 Essential (primary) hypertension; I25.10 Atherosclerotic heart disease of native coronary artery without angina pectoris; E11.9 Type 2 diabetes mellitus without complications; E78.00 Pure hypercholesterolemia, unspecified; Z79.899 Other long term (current) drug therapy; Z79.84 Long term (current) use of oral hypoglycemic drugs; Z79.02 Long term (current) use of antithrombotics/antiplatelets; Z88.6 Allergy status to analgesic agent; Z88.8 Allergy status to other drugs, medicaments and biological substances; Z91.040 Latex allergy status

== ENCOUNTER → 2016-06-27 | Outpatient (CLI) | payer MEDICARE, OTHER ==
--- NOTE | 2016-06-28 13:03 | RADONC ---
RADIATION ONCOLOGY FOLLOWUP NOTE DATE: 06/27/2016 CHART NUMBER: [id number]. DIAGNOSIS: Breast cancer. STAGE: Recurrent. ECOG PERFORMANCE STATUS: 1 FOLLOWUP NOTE: Ms. Correa is truly delightful 66-year-old white female with the diagnosis of multiple bilateral breast cancers who is presenting to us today for routine followup visit 2-1/2 years post completion of bilateral mastectomies. The patient presents today reporting that generally she is doing quite well with regards to her breast lesions. She continues to have macular degeneration however and has now lost more vision. 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 REVIEW OF SYSTEMS: The patient's review of systems is otherwise noncontributory. Except for her visual disturbances, she denies nausea, vomiting, fevers, chills, night sweats, diplopia, headaches, anxiety or depression, anorexia, weight loss, chest pain, urinary or bowel difficulties, bone pain or neurological problems except for macular degeneration. PHYSICAL EXAMINATION: The patient is a well-developed, well-nourished white female in no acute distress. HEENT exam is normocephalic, atraumatic. Extraocular movements are intact. There is no palpable cervical, supraclavicular, infraclavicular, axillary, or inguinal lymphadenopathy present. Lungs are clear to auscultation and percussion. Heart has a regular rate and rhythm. Abdomen is benign with no hepatosplenomegaly, masses, or tenderness. Chest wall examination reveals bilateral mastectomy scars present. There is no evidence of nodularity, ulceration, residual or recurrent disease. Skeletal examination reveals no tenderness to pressure or percussion of the bony skeleton. Extremities reveal no clubbing, cyanosis, or edema. Neurologic exam is grossly intact, as is the remainder of the physical examination. The patient is clinically JORGE at this time and will be seen by us again in 1 year for further followup. She will also continue be followed by her other physicians as well. cc: *Raphael Bear MD
== END ==
LOC: M ONCR 10:15
PROVIDERS: ATTEND Radiology Radiation Oncology
DX: C50.211 Malignant neoplasm of upper-inner quadrant of right female breast (principal); D05.12 Intraductal carcinoma in situ of left breast

== ENCOUNTER 2016-10-06 23:04 | Emergency (ER) | payer MEDICARE, OTHER ==
[~2016-10-06] VITALS: Ht 162.6 cm; Wt 79.5 kg
[2016-10-06] MEDS ORDERED: LIPI20TA PO (23:28)
[2016-10-06] MEDS ORDERED: LABE10TAB PO (23:28)
[2016-10-06] MEDS ORDERED: CARV3.12 PO (23:28)
[2016-10-06] MEDS ORDERED: AMLO10TA2 PO (23:28)
[2016-10-07 00:07] LABS: BASO # 0.1 K/mm3 (0.0-0.2); BASO % 1.2 % (0.0-1.0); EOS # 0.2 K/mm3 (0.0-0.50); EOS % 2.3 % (0.0-3.0); LARGE UNSTAINED CELL # 0.2 K/mm3 (0.0-0.4); LARGE UNSTAINED CELL % 2.7 % (0.0-4.0); LYMPH # 1.4 K/mm3 (1.5-4.5); LYMPH % 21.4 % (24.0-44.0); MEAN CORPUSCULAR HEMOGLOBIN 30.2 pg (27.0-33.0); MEAN CORPUSCULAR HGB CONC 33.2 g/dl (32.0-36.5); MEAN CORPUSCULAR VOLUME 90.8 fl (80.0-96.0); MONO # 0.6 K/mm3 (0.0-0.8); MONO % 8.6 % (0.0-5.0); NEUTROPHILS # 4.2 K/mm3 (1.8-7.7); NEUTROPHILS % 63.9 % (36.0-66.0); PLATELET COUNT, AUTOMATED 245 k/mm3 (150-450); RED CELL DISTRIBUTION WIDTH 13.7 % (11.5-14.5); WHITE BLOOD COUNT 6.6 K/mm3 (4.0-10.0)
[2016-10-07 00:31] LABS: ANION GAP 7 MEQ/L (8-16); BLOOD UREA NITROGEN 13 MG/DL (7-18); CALCIUM LEVEL 9.4 MG/DL (8.8-10.2); CARBON DIOXIDE LEVEL 27 MEQ/L (21-32); CHLORIDE LEVEL 107 MEQ/L (98-107); CREATININE FOR GFR 0.86 MG/DL (0.55-1.02); GLOMERULAR FILTRATION RATE > 60.0 (>45); GLUCOSE, FASTING 108 MG/DL (80-110); POTASSIUM SERUM 3.9 MEQ/L (3.5-5.1); SODIUM LEVEL 141 MEQ/L (136-145)
[2016-10-07 03:22] VITALS: BP 160/71
--- NOTE | 2016-10-09 08:39 | ECGEPIP ---
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
== END 2016-10-07 04:01 | disposition home or self-care (01) ==
LOC: M ED 23:04
DX: I10 Essential (primary) hypertension (principal); I25.2 Old myocardial infarction; E11.9 Type 2 diabetes mellitus without complications; Z82.49 Family history of ischemic heart disease and other diseases of the circulatory system; R94.31 Abnormal electrocardiogram [ECG] [EKG]; Z79.84 Long term (current) use of oral hypoglycemic drugs; Z88.6 Allergy status to analgesic agent; Z88.7 Allergy status to serum and vaccine; Z91.040 Latex allergy status; Z91.018 Allergy to other foods

== ENCOUNTER 2016-12-03 18:56 | Emergency (ER) | payer MEDICARE, OTHER ==
[~2016-12-03] VITALS: Ht 165.1 cm; Wt 84.1 kg
[~2016-12-03 18:56] MED LIST changes: +AMLO10TA2 PO; +CARV3.12 PO; +LABE10TAB PO; +LIPI20TA PO
[2016-12-03 19:50] LABS: BASO % 0.6 % (0.0-1.0); EOS # 0.2 K/mm3 (0.0-0.50); EOS % 2.9 % (0.0-3.0); LARGE UNSTAINED CELL # 0.1 K/mm3 (0.0-0.4); LARGE UNSTAINED CELL % 1.9 % (0.0-4.0); LYMPH # 1.5 K/mm3 (1.5-4.5); LYMPH % 22.4 % (24.0-44.0); MEAN CORPUSCULAR HEMOGLOBIN 31.1 pg (27.0-33.0); MEAN CORPUSCULAR VOLUME 91.4 fl (80.0-96.0); MONO # 0.6 K/mm3 (0.0-0.8); MONO % 8.8 % (0.0-5.0); NEUTROPHILS # 3.9 K/mm3 (1.8-7.7); NEUTROPHILS % 63.5 % (36.0-66.0); PLATELET COUNT, AUTOMATED 240 k/mm3 (150-450); RED CELL DISTRIBUTION WIDTH 13.8 % (11.5-14.5); WHITE BLOOD COUNT 6.2 K/mm3 (4.0-10.0)
[2016-12-03 21:01] LABS: INR 0.85
[2016-12-03 21:16] LABS: ALBUMIN/GLOBULIN RATIO 1.33 (1.00-1.93); ALKALINE PHOSPHATASE 122 U/L (45-117); ALT/SGPT 41 U/L (12-78); ANION GAP 12 MEQ/L (8-16); AST/SGOT 22 U/L (15-37); BILIRUBIN,DIRECT 0.1 MG/DL (0.0-0.2); BILIRUBIN,TOTAL 0.5 MG/DL (0.2-1.0); BLOOD UREA NITROGEN 13 MG/DL (7-18); CARBON DIOXIDE LEVEL 24 MEQ/L (21-32); CHLORIDE LEVEL 105 MEQ/L (98-107); CREATININE FOR GFR 0.77 MG/DL (0.55-1.02); FREE T4 0.95 NG/DL (0.76-1.46); GLOMERULAR FILTRATION RATE > 60.0 (>45); GLUCOSE, FASTING 119 MG/DL (80-110); POTASSIUM SERUM 3.9 MEQ/L (3.5-5.1); SODIUM LEVEL 141 MEQ/L (136-145)
[2016-12-03] MEDS ORDERED: cloNIDine 0.1 MG TAB PO ONE (22:15)
[2016-12-04 00:55] VITALS: BP 148/80
--- NOTE | 2016-12-04 07:38 | REP ---
Portable chest, 08:07 p.m., single AP view, the patient upright: Comparison is the PA and lateral chest dated 2015. The lung zapata are clear. The cardiac size is normal. The jeanette, mediastinum, and bony thorax are unremarkable. Impression: Negative portable chest. There is no interval change. Signed by Tony Velarde MD 12/04/2016 07:30 A
--- NOTE | 2016-12-04 16:01 | ECGEPIP ---
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
--- NOTE | 2016-12-04 16:02 | ECGEPIP ---
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
== END 2016-12-04 00:56 | disposition home or self-care (01) ==
LOC: M ED 18:56
DX: R07.89 Other chest pain (principal); E11.9 Type 2 diabetes mellitus without complications; I10 Essential (primary) hypertension; E78.5 Hyperlipidemia, unspecified; Z85.3 Personal history of malignant neoplasm of breast; G43.909 Migraine, unspecified, not intractable, without status migrainosus; M79.7 Fibromyalgia; Z90.10 Acquired absence of unspecified breast and nipple; Z79.84 Long term (current) use of oral hypoglycemic drugs; Z79.899 Other long term (current) drug therapy; Z88.6 Allergy status to analgesic agent; Z91.018 Allergy to other foods; Z91.040 Latex allergy status; Z88.7 Allergy status to serum and vaccine

== ENCOUNTER 2016-12-07 18:25 | Emergency (ER) | payer MEDICARE, OTHER ==
[~2016-12-07] VITALS: Ht 165.1 cm; Wt 84.1 kg
[2016-12-07 20:11] LABS: BASO # 0.1 K/mm3 (0.0-0.2); BASO % 0.9 % (0.0-1.0); EOS # 0.1 K/mm3 (0.0-0.50); EOS % 1.5 % (0.0-3.0); LARGE UNSTAINED CELL # 0.2 K/mm3 (0.0-0.4); LARGE UNSTAINED CELL % 2.3 % (0.0-4.0); LYMPH # 1.4 K/mm3 (1.5-4.5); LYMPH % 20.8 % (24.0-44.0); MEAN CORPUSCULAR HEMOGLOBIN 30.7 pg (27.0-33.0); MEAN CORPUSCULAR HGB CONC 34.7 g/dl (32.0-36.5); MEAN CORPUSCULAR VOLUME 88.5 fl (80.0-96.0); MONO # 0.6 K/mm3 (0.0-0.8); MONO % 8.8 % (0.0-5.0); NEUTROPHILS # 4.5 K/mm3 (1.8-7.7); NEUTROPHILS % 65.6 % (36.0-66.0); PLATELET COUNT, AUTOMATED 271 k/mm3 (150-450); RED CELL DISTRIBUTION WIDTH 13.2 % (11.5-14.5); WHITE BLOOD COUNT 6.8 K/mm3 (4.0-10.0)
[2016-12-07 20:26] VITALS: BP 162/86
[2016-12-07 20:36] LABS: ALBUMIN/GLOBULIN RATIO 1.21 (1.00-1.93); ALKALINE PHOSPHATASE 127 U/L (45-117); ALT/SGPT 48 U/L (12-78); ANION GAP 10 MEQ/L (8-16); AST/SGOT 31 U/L (15-37); BILIRUBIN,DIRECT 0.1 MG/DL (0.0-0.2); BILIRUBIN,TOTAL 0.5 MG/DL (0.2-1.0); BLOOD UREA NITROGEN 10 MG/DL (7-18); CALCIUM LEVEL 9.2 MG/DL (8.8-10.2); CARBON DIOXIDE LEVEL 27 MEQ/L (21-32); CHLORIDE LEVEL 106 MEQ/L (98-107); CREATININE FOR GFR 0.74 MG/DL (0.55-1.02); GLOMERULAR FILTRATION RATE > 60.0 (>45); GLUCOSE, FASTING 116 MG/DL (80-110); MAGNESIUM LEVEL 1.9 MG/DL (1.8-2.4); POTASSIUM SERUM 3.9 MEQ/L (3.5-5.1); SODIUM LEVEL 143 MEQ/L (136-145); TOTAL PROTEIN 7.3 GM/DL (6.4-8.2)
--- NOTE | 2016-12-08 08:22 | ECGEPIP ---
Stationary ECG Study [facility] - ED Test Date: 2016-12-07 Pat Name: LUIS MANUEL BRUMFIELD Department: Room: - Gender: F Quote Clerk: GloverB: 1950 Requested By: SARAH Tay Order Number: [id number] Reading MD: Liana Esteves Measurements Intervals [place] Rate: 91 P: 53 RI: 129 QRS: 15 QRSD: 88 T: -5 QT: 330 QTc: 408 Interpretive Statements SINUS RHYTHM NSTTW ABNORMALITY INCREASED RATE 12/03/16 Electronically Signed On 12-08-2016 8:22:10 EDT by Liana Esteves
== END 2016-12-07 22:09 | disposition home or self-care (01) ==
LOC: M ED 18:25
DX: R00.2 Palpitations (principal); I10 Essential (primary) hypertension; R94.31 Abnormal electrocardiogram [ECG] [EKG]; I51.9 Heart disease, unspecified; I25.2 Old myocardial infarction; Z79.84 Long term (current) use of oral hypoglycemic drugs; Z79.899 Other long term (current) drug therapy; Z88.6 Allergy status to analgesic agent; Z88.7 Allergy status to serum and vaccine; Z91.89 Other specified personal risk factors, not elsewhere classified; Z91.040 Latex allergy status; Z91.018 Allergy to other foods

== ENCOUNTER 2016-12-19 18:35 | Emergency (ER) | payer MEDICARE, OTHER ==
[~2016-12-19] VITALS: Ht 165.1 cm; Wt 83.7 kg
[2016-12-19] MEDS ORDERED: LABETALOL HCL 100 MG/20 ML VIAL IV STA (19:23)
--- NOTE | 2016-12-19 20:00 | REPUSA ---
HISTORY: HTN W/ HEADACHE. Comparison is made to previous head CT dated 05/25/15. TECHNIQUE: Axial CT of head without contrast. DLP= 775.9 mGy-cm. FINDINGS: Ventricles and sulci are of normal size for this age group. Xioa-white matter differentiati on is intact. There is no evidence of intracranial mass, mass effect, hemorrhage, or cystic lesion id entified. There is no detectable evidence of infarct. No bony lesions are seen in the calvarium or sk ull base. There has been no change in a benign calcified 0.9 cm soft tissue scalp nodule over the le ft posterior parietal calvarium and no change in a 3 mm calcified soft tissue scalp nodule seen over the right mid lateral calvarium. Paranasal sinuses and mastoid sinuses are clear. IMPRESSION: 1. Negative noncontrast head CT examination. 2. No change in small subcentimeter calcified nodules over the right and left scalp regions as discu ssed above.
[2016-12-19 20:16] LABS: BASO % 0.7 % (0.0-1.0); EOS # 0.1 K/mm3 (0.0-0.50); EOS % 1.6 % (0.0-3.0); LARGE UNSTAINED CELL # 0.1 K/mm3 (0.0-0.4); LARGE UNSTAINED CELL % 1.6 % (0.0-4.0); LYMPH # 1.4 K/mm3 (1.5-4.5); LYMPH % 18.7 % (24.0-44.0); MEAN CORPUSCULAR HEMOGLOBIN 30.6 pg (27.0-33.0); MEAN CORPUSCULAR HGB CONC 34.2 g/dl (32.0-36.5); MEAN CORPUSCULAR VOLUME 89.6 fl (80.0-96.0); MONO # 0.6 K/mm3 (0.0-0.8); MONO % 8.9 % (0.0-5.0); NEUTROPHILS # 4.7 K/mm3 (1.8-7.7); NEUTROPHILS % 68.5 % (36.0-66.0); PLATELET COUNT, AUTOMATED 270 k/mm3 (150-450); RED CELL DISTRIBUTION WIDTH 13.5 % (11.5-14.5); WHITE BLOOD COUNT 6.8 K/mm3 (4.0-10.0)
[2016-12-19 20:44] LABS: ANION GAP 12 MEQ/L (8-16); BLOOD UREA NITROGEN 12 MG/DL (7-18); CALCIUM LEVEL 8.7 MG/DL (8.8-10.2); CARBON DIOXIDE LEVEL 25 MEQ/L (21-32); CHLORIDE LEVEL 106 MEQ/L (98-107); CREATININE FOR GFR 0.74 MG/DL (0.55-1.02); GLOMERULAR FILTRATION RATE > 60.0 (>45); GLUCOSE, FASTING 130 MG/DL (80-110); POTASSIUM SERUM 4.1 MEQ/L (3.5-5.1); SODIUM LEVEL 143 MEQ/L (136-145)
[2016-12-19 20:45] VITALS: BP 141/67
[2016-12-19] MEDS ORDERED: LABETALOL 100 MG TAB PO ONE (20:45)
[2016-12-19 22:52] VITALS: BP 162/74
== END 2016-12-19 22:54 | disposition home or self-care (01) ==
LOC: M ED 18:35
DX: I10 Essential (primary) hypertension (principal); G43.909 Migraine, unspecified, not intractable, without status migrainosus; Z85.3 Personal history of malignant neoplasm of breast; L98.9 Disorder of the skin and subcutaneous tissue, unspecified; Z79.899 Other long term (current) drug therapy; Z88.6 Allergy status to analgesic agent; Z88.7 Allergy status to serum and vaccine; Z91.89 Other specified personal risk factors, not elsewhere classified; Z91.040 Latex allergy status; Z91.018 Allergy to other foods

== ENCOUNTER 2016-12-25 20:12 | Emergency (ER) | payer MEDICARE, OTHER ==
[~2016-12-25] VITALS: Ht 165.1 cm; Wt 79.5 kg
[2016-12-25] MEDS ORDERED: LABE10TAB PO (20:23)
[2016-12-25] MEDS ORDERED: AVAP300T23 PO (20:23)
[2016-12-25 21:00] VITALS: BP 192/82
[2016-12-25] MEDS ORDERED: LABETALOL 100 MG TAB PO ONE (21:00)
--- NOTE | 2016-12-25 21:15 | REP ---
Clinical: Headache. Comparison: 12/19/2016 . Findings: Age-related atrophy and microvascular ischemic changes are appreciated. The ventricles and sulci are symmetric. Xiao-white differentiation is maintained. There is no evidence for acute intracranial hemorrhage, mass/mass effect, pathology or infarction. No extra-axial fluid collection. Calvarium is intact. Paranasal sinuses and mastoid air cells are clear. Impression: Age related atrophy and microvascular ischemic changes. No acute intracranial hemorrhage, infarction, or mass/mass effect. Signed by Ravi Martin MD 12/25/2016 09:06 P
[2016-12-25 21:35] LABS: BASO % 0.5 % (0.0-1.0); EOS # 0.1 K/mm3 (0.0-0.50); EOS % 1.8 % (0.0-3.0); LARGE UNSTAINED CELL # 0.2 K/mm3 (0.0-0.4); LARGE UNSTAINED CELL % 2.4 % (0.0-4.0); LYMPH # 1.6 K/mm3 (1.5-4.5); LYMPH % 22.1 % (24.0-44.0); MEAN CORPUSCULAR HGB CONC 34.9 g/dl (32.0-36.5); MONO # 0.6 K/mm3 (0.0-0.8); NEUTROPHILS # 4.7 K/mm3 (1.8-7.7); NEUTROPHILS % 65.2 % (36.0-66.0); PLATELET COUNT, AUTOMATED 274 k/mm3 (150-450); RED CELL DISTRIBUTION WIDTH 13.3 % (11.5-14.5); WHITE BLOOD COUNT 7.1 K/mm3 (4.0-10.0)
[2016-12-25 21:52] LABS: ANION GAP 12 MEQ/L (8-16); BLOOD UREA NITROGEN 15 MG/DL (7-18); CALCIUM LEVEL 9.6 MG/DL (8.8-10.2); CARBON DIOXIDE LEVEL 26 MEQ/L (21-32); CHLORIDE LEVEL 103 MEQ/L (98-107); CREATININE FOR GFR 0.88 MG/DL (0.55-1.02); GLOMERULAR FILTRATION RATE > 60.0 (>45); GLUCOSE, FASTING 127 MG/DL (80-110); POTASSIUM SERUM 4.1 MEQ/L (3.5-5.1); SODIUM LEVEL 141 MEQ/L (136-145)
[2016-12-25 22:45] VITALS: BP 153/63
--- NOTE | 2016-12-26 08:10 | REP ---
Clinical: Chest pain and hypotension . Comparison: 12/03/2016 . Technique: PA and lateral. Findings: The mediastinum and cardiac silhouette are normal. The lung zapata are clear and without acute consolidation, effusion, or pneumothorax. The skeletal structures are intact and normal. Impression: 1. No acute cardiopulmonary process. Signed by Ravi Martin MD 12/26/2016 08:01 A
--- NOTE | 2016-12-26 21:35 | ECGEPIP ---
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
== END 2016-12-25 22:46 | disposition home or self-care (01) ==
LOC: M ED 20:12
DX: I10 Essential (primary) hypertension (principal); R94.31 Abnormal electrocardiogram [ECG] [EKG]; E11.9 Type 2 diabetes mellitus without complications; G47.30 Sleep apnea, unspecified; M79.7 Fibromyalgia; R56.9 Unspecified convulsions; H35.30 Unspecified macular degeneration; G43.819 Other migraine, intractable, without status migrainosus; Z85.42 Personal history of malignant neoplasm of other parts of uterus; Z79.84 Long term (current) use of oral hypoglycemic drugs; Z79.899 Other long term (current) drug therapy; Z88.6 Allergy status to analgesic agent; Z88.7 Allergy status to serum and vaccine; Z91.040 Latex allergy status; Z91.89 Other specified personal risk factors, not elsewhere classified; Z91.018 Allergy to other foods

== ENCOUNTER → 2017-01-16 | Outpatient (CLI) | payer MEDICARE, OTHER ==
[~2017-01-16] MED LIST changes: +AVAP300T23 PO
--- NOTE | 2017-01-17 09:12 | RADONC ---
RADIATION ONCOLOGY FOLLOWUP NOTE DATE: 01/16/2017 CHART NUMBER: [id number] DIAGNOSIS: Breast cancer. STAGE: Recurrent. ECOG PERFORMANCE STATUS: 0. FOLLOWUP NOTE: Ms. Correa is a delightful 66-year-old white female with the diagnosis of multiple bilateral breast cancers who is presenting to us today for routine followup visit 3 years post completion of bilateral mastectomies. The patient presents today reporting that generally she is doing quite well with regards to her breast lesions. She continues to have macular degeneration. She is able to read. She does have some tenderness of the muscles in the chest wall over her mastectomy sites. REVIEW OF SYSTEMS: The patient's review of systems is positive for her visual difficulties as well as some chest wall tenderness, but is otherwise noncontributory. Denies nausea, vomiting, fevers, chills, night sweats, diplopia, headaches, anxiety or depression, anorexia, weight loss, visual disturbances, chest pain, urinary or bowel difficulties, bone pain, or neurological problems. PHYSICAL EXAMINATION: The patient is a well-developed, well-nourished, 66-year-old in no acute distress. HEENT exam is normocephalic, atraumatic. Extraocular movements are intact. There is no palpable cervical, supraclavicular, infraclavicular, axillary, or inguinal lymphadenopathy present. Lungs are clear to auscultation and percussion. Heart has a regular rate and rhythm. Abdomen is benign with no hepatosplenomegaly, masses, or tenderness. A chest wall examination reveals bilateral mastectomy scars present. There is no evidence of nodularity, ulceration or recurrent disease. Skeletal examination reveals no tenderness to pressure or percussion of the bony skeleton. Extremities reveal no clubbing, cyanosis, or edema. Neurologic exam is grossly intact, as is the remainder of the physical examination. ASSESSMENT: The patient is clinically JORGE at this time and will be seen by us again in 6 months for further followup. She will also continue be followed by her other physicians as well. cc: Raphael Bear MD
== END ==
LOC: M ONCR 10:08
PROVIDERS: ATTEND Radiology Radiation Oncology
DX: C50.211 Malignant neoplasm of upper-inner quadrant of right female breast (principal); D05.12 Intraductal carcinoma in situ of left breast

== ENCOUNTER 2017-03-21 18:46 | Emergency (ER) | payer MEDICARE, OTHER ==
[~2017-03-21] VITALS: Ht 162.6 cm; Wt 82.7 kg
[2017-03-21] MEDS ORDERED: NEUR400C (19:04)
[2017-03-21] MEDS ORDERED: ATOR40TA75 (19:04)
[2017-03-21] MEDS ORDERED: CARV6.25 (19:04)
[2017-03-21 20:28] VITALS: BP 156/63
[2017-03-21] MEDS ORDERED: CHLORTHALIDONE 12.5MG PER 1/2 TABLET PO ONE (20:30)
[2017-03-21] MEDS ORDERED: CARVedilol 12.5 MG TAB PO ONE (20:30)
[2017-03-21 21:47] VITALS: BP 134/65
[2017-03-21] MEDS ORDERED: CHLO125TA PO (22:01)
[2017-03-21] MEDS ORDERED: CARV12.5 PO (22:01)
== END 2017-03-21 22:48 | disposition home or self-care (01) ==
LOC: M ED 18:46
DX: I10 Essential (primary) hypertension (principal); E66.9 Obesity, unspecified; Z79.84 Long term (current) use of oral hypoglycemic drugs; Z88.6 Allergy status to analgesic agent; Z88.7 Allergy status to serum and vaccine; Z91.89 Other specified personal risk factors, not elsewhere classified; Z91.040 Latex allergy status; Z91.018 Allergy to other foods

== ENCOUNTER → 2017-05-16 | Outpatient (CLI) | payer MEDICARE, OTHER | LOC: M WUC 09:36 | DX: M25.511 Pain in right shoulder (principal) | CPT/HCPCS: 73030 ==

== ENCOUNTER → 2017-05-20 | Outpatient (CLI) | payer MEDICARE, OTHER ==
[2017-05-20 20:04] LABS: BASO % 0.4 % (0.0-1.0); EOS % 0.4 % (0.0-3.0); HEMATOCRIT 41.2 % (36.0-47.0); HEMOGLOBIN 13.4 g/dl (12.0-16.0); IMMATURE GRANULOCYTE % 0.4 % (0-0); LYMPH # 0.6 10^3/uL (1.5-4.5); LYMPH % 9.3 % (24.0-44.0); MEAN CORPUSCULAR HEMOGLOBIN 29.5 pg (27.0-33.0); MEAN CORPUSCULAR HGB CONC 32.5 g/dl (32.0-36.5); MEAN CORPUSCULAR VOLUME 90.7 fl (80.0-96.0); MONO # 1.4 10^3/uL (0.0-0.8); MONO % 20.8 % (0.0-5.0); NEUTROPHILS # 4.6 10^3/uL (1.8-7.7); NEUTROPHILS % 68.7 % (36.0-66.0); PLATELET COUNT, AUTOMATED 223 10^3/uL (150-450); RED BLOOD COUNT 4.54 10^6/uL (4.00-5.40); RED CELL DISTRIBUTION WIDTH 13.6 % (11.5-14.5); WHITE BLOOD COUNT 6.7 10^3/uL (4.0-10.0)
== END ==
LOC: M WUC 15:39
DX: R05 Cough (principal); R50.9 Fever, unspecified
CPT/HCPCS: 85025

== ENCOUNTER 2017-07-23 08:07 | Emergency (ER) | payer MEDICARE, OTHER ==
[2017-07-23 08:51] LABS: BASO % 0.7 % (0.0-1.0); EOS # 0.1 10^3/uL (0.0-0.50); EOS % 2.4 % (0.0-3.0); HEMATOCRIT 37.7 % (36.0-47.0); HEMOGLOBIN 12.8 g/dl (12.0-15.5); IMMATURE GRANULOCYTE % 0.3 % (0-3.0); LYMPH # 1.3 10^3/uL (1.5-4.5); LYMPH % 21.6 % (24.0-44.0); MEAN CORPUSCULAR HEMOGLOBIN 30.1 pg (27.0-33.0); MEAN CORPUSCULAR VOLUME 88.7 fl (80.0-96.0); MONO # 0.7 10^3/uL (0.0-0.8); MONO % 12.7 % (0.0-5.0); NEUTROPHILS # 3.6 10^3/uL (1.8-7.7); NEUTROPHILS % 62.3 % (36.0-66.0); PLATELET COUNT, AUTOMATED 240 10^3/uL (150-450); RED BLOOD COUNT 4.25 10^6/uL (4.00-5.40); RED CELL DISTRIBUTION WIDTH 13.6 % (11.5-14.5); WHITE BLOOD COUNT 5.8 10^3/uL (4.0-10.0)
[2017-07-23 09:19] LABS: ANION GAP 7 MEQ/L (8-16); BLOOD UREA NITROGEN 14 MG/DL (7-18); CALCIUM LEVEL 9.3 MG/DL (8.8-10.2); CARBON DIOXIDE LEVEL 25 MEQ/L (21-32); CHLORIDE LEVEL 108 MEQ/L (98-107); CK-MB VALUE MASS < 1.0 NG/ML (<3.6); CPK CREATINE PHOSPHOKINASE 117 U/L (26-192); CREATININE FOR GFR 0.83 MG/DL (0.55-1.30); GLOMERULAR FILTRATION RATE > 60.0 (>45); GLUCOSE, FASTING 123 MG/DL (70-100); MB/CK RELATIVE INDEX 0.85 (< OR =4); POTASSIUM SERUM 4.3 MEQ/L (3.5-5.1); SODIUM LEVEL 140 MEQ/L (136-145); TROPONIN I < 0.02 NG/ML (< 0.10)
[2017-07-23 12:29] LABS: CK-MB VALUE MASS < 1.0 NG/ML (<3.6); CPK CREATINE PHOSPHOKINASE 114 U/L (26-192); MB/CK RELATIVE INDEX 0.87 (< OR =4); TROPONIN I < 0.02 NG/ML (< 0.10)
[2017-07-23 14:54] LABS: CK-MB VALUE MASS 1.3 NG/ML (<3.6); CPK CREATINE PHOSPHOKINASE 107 U/L (26-192); MB/CK RELATIVE INDEX 1.21 (< OR =4); TROPONIN I < 0.02 NG/ML (< 0.10)
== END 2017-07-23 15:16 | disposition home or self-care (01) ==
LOC: M ED 08:07
DX: R07.89 Other chest pain (principal); I25.10 Atherosclerotic heart disease of native coronary artery without angina pectoris; I10 Essential (primary) hypertension; E78.5 Hyperlipidemia, unspecified; I25.2 Old myocardial infarction; Z79.01 Long term (current) use of anticoagulants; Z79.84 Long term (current) use of oral hypoglycemic drugs; Z79.899 Other long term (current) drug therapy; Z85.3 Personal history of malignant neoplasm of breast; Z90.13 Acquired absence of bilateral breasts and nipples; Z92.3 Personal history of irradiation; Z88.8 Allergy status to other drugs, medicaments and biological substances; Z91.040 Latex allergy status; Z91.018 Allergy to other foods; Z88.7 Allergy status to serum and vaccine
CPT/HCPCS: 71045

== ENCOUNTER → 2017-08-02 | Outpatient (CLI) | payer MEDICARE, OTHER | LOC: M ONCR 11:13 | DX: Z08 Encounter for follow-up examination after completed treatment for malignant neoplasm (principal); Z85.3 Personal history of malignant neoplasm of breast | CPT/HCPCS: G0463 ==

== ENCOUNTER → 2017-11-29 | Outpatient (CLI) | payer MEDICARE, OTHER | LOC: M WUC 10:53 | DX: S30.0XXD Contusion of lower back and pelvis, subsequent encounter (principal); M51.36 Other intervertebral disc degeneration, lumbar region; X58.XXXD Exposure to other specified factors, subsequent encounter; Y92.9 Unspecified place or not applicable | CPT/HCPCS: 72110 ==

== ENCOUNTER → 2018-02-12 | Outpatient (CLI) | payer MEDICARE, OTHER | LOC: M ONCR 09:44 | DX: Z08 Encounter for follow-up examination after completed treatment for malignant neoplasm (principal); Z85.3 Personal history of malignant neoplasm of breast ==

== ENCOUNTER 2018-03-05 15:42 | Emergency (ER) | payer MEDICARE, OTHER ==
[2018-03-05 16:22] LABS: BASO # 0.1 10^3/uL (0.0-0.2); BASO % 0.7 % (0.0-1.0); EOS # 0.3 10^3/uL (0.0-0.50); HEMOGLOBIN 13.2 g/dl (12.0-15.5); IMMATURE GRANULOCYTE % 0.3 % (0-3.0); LYMPH # 1.5 10^3/uL (1.5-4.5); LYMPH % 21.5 % (24.0-44.0); MEAN CORPUSCULAR HEMOGLOBIN 29.8 pg (27.0-33.0); MEAN CORPUSCULAR VOLUME 90.3 fl (80.0-96.0); MONO # 0.9 10^3/uL (0.0-0.8); MONO % 12.7 % (0.0-5.0); NEUTROPHILS % 59.8 % (36.0-66.0); PLATELET COUNT, AUTOMATED 259 10^3/uL (150-450); RED BLOOD COUNT 4.43 10^6/uL (4.00-5.40); RED CELL DISTRIBUTION WIDTH 13.2 % (11.5-14.5); WHITE BLOOD COUNT 6.8 10^3/uL (4.0-10.0)
[2018-03-05 16:34] LABS: INR 0.91; PROTHROMBIN TIME 12.3 SECONDS (12.1-14.4)
[2018-03-05 16:52] LABS: ALBUMIN 3.9 GM/DL (3.2-5.2); ALBUMIN/GLOBULIN RATIO 1.34 (1.00-1.93); ALKALINE PHOSPHATASE 139 U/L (45-117); ALT/SGPT 61 U/L (12-78); ANION GAP 8 MEQ/L (8-16); AST/SGOT 30 U/L (7-37); BILIRUBIN,DIRECT 0.2 MG/DL (0.0-0.2); BILIRUBIN,TOTAL 0.6 MG/DL (0.2-1.0); BLOOD UREA NITROGEN 13 MG/DL (7-18); CALCIUM LEVEL 9.2 MG/DL (8.8-10.2); CARBON DIOXIDE LEVEL 29 MEQ/L (21-32); CHLORIDE LEVEL 104 MEQ/L (98-107); CPK CREATINE PHOSPHOKINASE 115 U/L (26-192); CREATININE FOR GFR 0.88 MG/DL (0.55-1.30); GLOMERULAR FILTRATION RATE > 60.0 (>45); GLUCOSE, FASTING 109 MG/DL (70-100); LIPASE 227 U/L (73-393); MB/CK RELATIVE INDEX 1.04 (< OR =4); NT-PRO BNP 130 PG/ML (<125); POTASSIUM SERUM 4.2 MEQ/L (3.5-5.1); SODIUM LEVEL 141 MEQ/L (136-145); TOTAL PROTEIN 6.8 GM/DL (6.4-8.2); TROPONIN I < 0.02 NG/ML (< 0.10)
[2018-03-05 19:37] LABS: INFLUENZA A AMPLIFICATION NEGATIVE (NEGATIVE); INFLUENZA B AMPLIFICATION NEGATIVE (NEGATIVE)
[2018-03-05 19:38] LABS: CPK CREATINE PHOSPHOKINASE 100 U/L (26-192); TROPONIN I < 0.02 NG/ML (< 0.10)
== END 2018-03-05 20:13 | disposition home or self-care (01) ==
LOC: M ED 15:42
DX: R07.89 Other chest pain (principal); K21.9 Gastro-esophageal reflux disease without esophagitis; R94.31 Abnormal electrocardiogram [ECG] [EKG]; E11.9 Type 2 diabetes mellitus without complications; Z79.01 Long term (current) use of anticoagulants; Z79.84 Long term (current) use of oral hypoglycemic drugs; Z79.899 Other long term (current) drug therapy; Z88.8 Allergy status to other drugs, medicaments and biological substances; Z88.7 Allergy status to serum and vaccine; Z91.040 Latex allergy status; Z91.018 Allergy to other foods
CPT/HCPCS: 71045

== ENCOUNTER → 2018-03-29 | Outpatient (REF) | payer MEDICARE, OTHER | LOC: M LAB REF 11:04 | DX: M54.9 Dorsalgia, unspecified (principal) | CPT/HCPCS: 87086 ==

== ENCOUNTER 2018-06-22 18:24 | Emergency (ER) | payer MEDICARE, OTHER ==
[~2018-06-22] VITALS: Ht 165.1 cm; Wt 81.8 kg
[~2018-06-22 18:24] MED LIST changes: -AMLO10TA2 PO; +AMLO10TA5 PO; +ATOR40TA75; +CARV12.5 PO; +CARV6.25; +CARV6.25 PO; +CHLO125TA PO; +CO Q100C10 PO; +CO Q10CA PO; +MICA40TA PO; +VITA100067 PO
--- NOTE | 2018-06-22 19:04 | REP ---
Clinical: Acute chest pain . Comparison: 05/20/2017 . Findings: The mediastinum and cardiac silhouette are stable and within normal limits for portable technique. The lung zapata are clear without acute consolidation, effusion, or pneumothorax. Skeletal structures are intact. Impression: No acute cardiopulmonary process appreciated. Electronically Signed by Ravi Martin MD 06/22/2018 06:56 P
[2018-06-22 19:14] LABS: BASO # 0.1 10^3/uL (0.0-0.2); BASO % 0.7 % (0.0-1.0); EOS # 0.2 10^3/uL (0.0-0.50); HEMATOCRIT 39.4 % (36.0-47.0); HEMOGLOBIN 13.3 g/dl (12.0-15.5); LYMPH # 1.7 10^3/uL (1.5-4.5); LYMPH % 23.8 % (24.0-44.0); MEAN CORPUSCULAR HEMOGLOBIN 30.3 pg (27.0-33.0); MEAN CORPUSCULAR HGB CONC 33.8 g/dl (32.0-36.5); MEAN CORPUSCULAR VOLUME 89.7 fl (80.0-96.0); MONO # 0.8 10^3/uL (0.0-0.8); MONO % 10.7 % (0.0-5.0); NEUTROPHILS # 4.4 10^3/uL (1.8-7.7); NEUTROPHILS % 61.2 % (36.0-66.0); PLATELET COUNT, AUTOMATED 253 10^3/uL (150-450); RED BLOOD COUNT 4.39 10^6/uL (4.00-5.40); WHITE BLOOD COUNT 7.3 10^3/uL (4.0-10.0)
[2018-06-22 19:45] LABS: ALT/SGPT 67 U/L (12-78); BILIRUBIN,DIRECT 0.2 MG/DL (0.0-0.2); BILIRUBIN,TOTAL 0.6 MG/DL (0.2-1.0); BLOOD UREA NITROGEN 14 MG/DL (7-18); CALCIUM LEVEL 8.2 MG/DL (8.8-10.2); CARBON DIOXIDE LEVEL 21 MEQ/L (21-32); CHLORIDE LEVEL 105 MEQ/L (98-107); CPK CREATINE PHOSPHOKINASE 108 U/L (26-192); CREATININE FOR GFR 1.02 MG/DL (0.55-1.30); FREE T4 0.98 NG/DL (0.76-1.46); GLUCOSE, FASTING 170 MG/DL (70-100); LIPASE 180 U/L (73-393); POTASSIUM SERUM 4.1 MEQ/L (3.5-5.1); SODIUM LEVEL 139 MEQ/L (136-145); TOTAL PROTEIN 7.2 GM/DL (6.4-8.2); TROPONIN I < 0.02 NG/ML (< 0.10)
--- NOTE | 2018-06-22 20:15 | ECGEPIP ---
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
[2018-06-22 21:15] VITALS: BP 143/65
== END 2018-06-22 21:30 | disposition home or self-care (01) ==
LOC: M ED 18:24
DX: I10 Essential (primary) hypertension (principal); E11.9 Type 2 diabetes mellitus without complications; M79.7 Fibromyalgia; G43.909 Migraine, unspecified, not intractable, without status migrainosus; Z79.899 Other long term (current) drug therapy; Z79.01 Long term (current) use of anticoagulants; Z88.6 Allergy status to analgesic agent; Z88.8 Allergy status to other drugs, medicaments and biological substances; Z91.018 Allergy to other foods; Z91.040 Latex allergy status; Z91.048 Other nonmedicinal substance allergy status

== ENCOUNTER 2018-08-03 16:49 | Emergency (ER) | payer MEDICARE, OTHER ==
[~2018-08-03] VITALS: Ht 165.1 cm; Wt 84.1 kg
[2018-08-03 17:45] VITALS: BP 112/60
--- NOTE | 2018-08-03 19:30 | ECGEPIP ---
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
== END 2018-08-03 17:52 | disposition home or self-care (01) ==
LOC: M ED 16:49
DX: I10 Essential (primary) hypertension (principal); I25.2 Old myocardial infarction; E11.9 Type 2 diabetes mellitus without complications; M79.7 Fibromyalgia; Z79.01 Long term (current) use of anticoagulants; Z98.890 Other specified postprocedural states; Z91.048 Other nonmedicinal substance allergy status; Z91.018 Allergy to other foods; Z88.8 Allergy status to other drugs, medicaments and biological substances; Z88.7 Allergy status to serum and vaccine; Z91.040 Latex allergy status

== ENCOUNTER → 2018-08-06 | Outpatient (CLI) | payer MEDICARE, OTHER ==
--- NOTE | 2018-08-07 07:54 | RADONC ---
RADIATION ONCOLOGY FOLLOWUP NOTE DATE: 08/06/2018 CHART #: [id number] DIAGNOSIS: Breast cancer. STAGE: Recurrent. ECOG PERFORMANCE STATUS: 0. FOLLOWUP NOTE: Mrs. Correa is a pleasant 68-year-old female with a diagnosis of multiple bilateral breast cancers who presents today for routine followup visit. She is almost 9 years post completion of her external beam radiotherapy to the left breast and 16-1/2 years status post completion of external beam radiotherapy to the right breast. She comes today for a followup visit with no specific complaints related to her disease or to her treatments. REVIEW OF SYSTEMS: She denies any nausea, vomiting, coughing, sputum production, or hemoptysis. Her energy level is satisfactory and she is able to maintain most day-to-day activities without any alteration of her lifestyle. She does complain of other problems including macular degeneration and multiple medical issues, but with regards to her breasts she appears to be relatively asymptomatic and she is asymptomatic with regards to any past treatment. PHYSICAL EXAMINATION: She is a well-developed female in no acute distress. HEENT: Normocephalic. Lymphatics: No palpable peripheral lymphadenopathy. Lungs are clear. Heart: Regular without murmurs. Abdomen: Without evidence of hepatomegaly, masses, or deep abdominal tenderness. Extremities: Without cyanosis, clubbing or edema. Neurologic examination appears to be grossly physiologic and nonfocal. IMPRESSION: The patient is clinically JORGE. PLAN: Return to clinic in approximately 6 months or p.r.n. cc: Raphael Bear MD [facility]
== END ==
LOC: M ONCR 13:52
PROVIDERS: ATTEND Radiology Radiation Oncology
DX: Z08 Encounter for follow-up examination after completed treatment for malignant neoplasm (principal); Z92.3 Personal history of irradiation; Z85.3 Personal history of malignant neoplasm of breast

== ENCOUNTER 2018-08-27 10:34 | Emergency (ER) | payer MEDICARE, OTHER ==
[~2018-08-27] VITALS: Ht 165.1 cm; Wt 85.3 kg
[2018-08-27 11:34] LABS: BASO % 0.5 % (0.0-1.0); EOS # 0.2 10^3/uL (0.0-0.50); EOS % 2.5 % (0.0-3.0); HEMATOCRIT 40.4 % (36.0-47.0); HEMOGLOBIN 13.4 g/dl (12.0-15.5); LYMPH # 1.3 10^3/uL (1.5-4.5); LYMPH % 19.6 % (24.0-44.0); MEAN CORPUSCULAR HEMOGLOBIN 30.2 pg (27.0-33.0); MEAN CORPUSCULAR HGB CONC 33.2 g/dl (32.0-36.5); MONO # 0.7 10^3/uL (0.0-0.8); MONO % 11.2 % (0.0-5.0); NEUTROPHILS # 4.3 10^3/uL (1.8-7.7); NEUTROPHILS % 65.7 % (36.0-66.0); PLATELET COUNT, AUTOMATED 259 10^3/uL (150-450); RED BLOOD COUNT 4.44 10^6/uL (4.00-5.40); WHITE BLOOD COUNT 6.5 10^3/uL (4.0-10.0)
[2018-08-27 11:51] LABS: INR 0.89; PROTHROMBIN TIME 12.1 SECONDS (12.1-14.4)
[2018-08-27 11:52] LABS: PARTIAL THROMBOPLASTIN TIME 28.6 SECONDS (25.4-37.6)
--- NOTE | 2018-08-27 12:42 | REP ---
REASON: Dizziness. COMPARISON: Multiple, latest 06/22/2018. FINDINGS: The superior mediastinal structures are midline. The cardiac silhouette is unremarkable in size, shape, and position. The diaphragmatic surfaces of the lungs are regular, and the costophrenic angles are clear. The pulmonary zapata are clear. The imaged osseous structures are intact. IMPRESSION: There is no acute cardiopulmonary disease. Electronically Signed by Gustavo Perdomo DO 08/27/2018 03:24 P
[2018-08-27] MEDS ORDERED: NS 500 ML IV ONE (12:45)
[2018-08-27 13:40] LABS: BLOOD UREA NITROGEN 13 MG/DL (7-18); CALCIUM LEVEL 9.5 MG/DL (8.8-10.2); CARBON DIOXIDE LEVEL 27 MEQ/L (21-32); CHLORIDE LEVEL 107 MEQ/L (98-107); CK-MB VALUE MASS < 1.0 NG/ML (<3.6); CPK CREATINE PHOSPHOKINASE 107 U/L (26-192); CREATININE FOR GFR 0.84 MG/DL (0.55-1.30); FREE T4 0.98 NG/DL (0.76-1.46); GLOMERULAR FILTRATION RATE > 60.0 (>39); GLUCOSE, FASTING 143 MG/DL (70-100); MAGNESIUM LEVEL 1.9 MG/DL (1.8-2.4); MB/CK RELATIVE INDEX 0.93 (< OR =4); POTASSIUM SERUM 3.9 MEQ/L (3.5-5.1); SODIUM LEVEL 140 MEQ/L (136-145); TROPONIN I < 0.02 NG/ML (< 0.10)
[2018-08-27 17:04] LABS: CK-MB VALUE MASS < 1.0 NG/ML (<3.6); CPK CREATINE PHOSPHOKINASE 98 U/L (26-192); MB/CK RELATIVE INDEX 1.02 (< OR =4); TROPONIN I < 0.02 NG/ML (< 0.10)
[2018-08-27 17:40] VITALS: BP 146/65
--- NOTE | 2018-08-27 20:30 | ECGEPIP ---
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
--- NOTE | 2018-08-27 20:38 | ECGEPIP ---
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
== END 2018-08-27 18:15 | disposition home or self-care (01) ==
LOC: M ED 10:34
DX: R42 Dizziness and giddiness (principal); E11.9 Type 2 diabetes mellitus without complications; I10 Essential (primary) hypertension; E78.9 Disorder of lipoprotein metabolism, unspecified; K21.9 Gastro-esophageal reflux disease without esophagitis; R53.82 Chronic fatigue, unspecified; I25.2 Old myocardial infarction; H35.30 Unspecified macular degeneration; G47.30 Sleep apnea, unspecified; Z79.899 Other long term (current) drug therapy; Z79.84 Long term (current) use of oral hypoglycemic drugs; Z79.01 Long term (current) use of anticoagulants; Z88.7 Allergy status to serum and vaccine; Z88.8 Allergy status to other drugs, medicaments and biological substances; Z91.018 Allergy to other foods; Z91.048 Other nonmedicinal substance allergy status

== ENCOUNTER 2019-01-08 18:50 | Emergency (ER) | payer MEDICARE, OTHER ==
[~2019-01-08] VITALS: Ht 165.1 cm; Wt 84.1 kg
[2019-01-08 19:54] LABS: BASO # 0.1 10^3/uL (0.0-0.2); BASO % 0.7 % (0.0-1.0); EOS # 0.2 10^3/uL (0.0-0.5); HEMATOCRIT 38.9 % (36.0-47.0); HEMOGLOBIN 13.1 g/dl (12.0-15.5); LYMPH # 1.6 10^3/uL (1.5-5.0); LYMPH % 22.3 % (24.0-44.0); MEAN CORPUSCULAR HEMOGLOBIN 30.5 pg (27.0-33.0); MEAN CORPUSCULAR HGB CONC 33.7 g/dl (32.0-36.5); MEAN CORPUSCULAR VOLUME 90.5 fl (80.0-96.0); MONO # 0.9 10^3/uL (0.0-0.8); MONO % 11.5 % (0.0-5.0); NEUTROPHILS # 4.6 10^3/uL (1.5-8.5); PLATELET COUNT, AUTOMATED 257 10^3/uL (150-450); WHITE BLOOD COUNT 7.4 10^3/uL (4.0-10.0)
[2019-01-08 20:08] LABS: ALBUMIN 3.8 GM/DL (3.2-5.2); ALT/SGPT 62 U/L (12-78); BILIRUBIN,DIRECT 0.1 MG/DL (0.0-0.2); BILIRUBIN,TOTAL 0.6 MG/DL (0.2-1.0); BLOOD UREA NITROGEN 16 MG/DL (7-18); CALCIUM LEVEL 9.4 MG/DL (8.8-10.2); CARBON DIOXIDE LEVEL 26 MEQ/L (21-32); CHLORIDE LEVEL 105 MEQ/L (98-107); CK-MB VALUE MASS < 1.0 NG/ML (<3.6); CPK CREATINE PHOSPHOKINASE 108 U/L (26-192); CREATININE FOR GFR 0.87 MG/DL (0.55-1.30); FREE THYROXINE INDEX 3.3 % (1.3-4.8); GLOMERULAR FILTRATION RATE > 60.0 (>39); GLUCOSE, FASTING 104 MG/DL (70-100); MB/CK RELATIVE INDEX 0.93 (< OR =4); POTASSIUM SERUM 3.9 MEQ/L (3.5-5.1); SODIUM LEVEL 139 MEQ/L (136-145); T UPTAKE 32 % (30-39); THYROXINE (T4) 10.3 UG/DL (4.5-12.0); TOTAL PROTEIN 6.8 GM/DL (6.4-8.2); TROPONIN I < 0.02 NG/ML (< 0.10)
[2019-01-08] MEDS ORDERED: NS 500 ML IV ONE (20:45)
[2019-01-08 21:04] VITALS: BP 175/74
--- NOTE | 2019-01-08 21:47 | ECGEPIP ---
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
[2019-01-08 21:58] LABS: APPEARANCE, URINE HAZY (CLEAR); BACTERIA, URINE AUTO 3+ (NEGATIVE); BILIRUBIN, URINE AUTO NEGATIVE (NEGATIVE); BLOOD, URINE BLOOD NEGATIVE (NEGATIVE); COLOR, URINE YELLOW (YELLOW); GLUCOSE, URINE (UA) AUTO NEGATIVE (NEGATIVE); KETONE, URINE AUTO NEGATIVE (NEGATIVE); LEUKOCYTE ESTERASE, URINE AUTO 3+ (NEGATIVE); MUCUS, URINE SMALL (NEGATIVE); NITRITE, URINE AUTO NEGATIVE (NEGATIVE); PROTEIN, URINE AUTO NEGATIVE (NEGATIVE); RBC, URINE AUTO 2 /HPF (0-3); SPECIFIC GRAVITY URINE AUTO 1.008 (1.002-1.035); SQUAMOUS EPITHELIAL CELL UR AU 0 /HPF (0-6); UROBILINOGEN, URINE AUTO 0.2 mg/dL (0.0-2.0); WBC, URINE AUTO 52 /HPF (0-3)
[2019-01-08] MEDS ORDERED: BACT800T5 PO (22:02)
[2019-01-08] MEDS ORDERED: BACTRIM 160MG/800MG DS TAB PO ONE (22:15)
== END 2019-01-08 22:34 | disposition home or self-care (01) ==
LOC: M ED 18:50
DX: N39.0 Urinary tract infection, site not specified (principal); I25.10 Atherosclerotic heart disease of native coronary artery without angina pectoris; G43.909 Migraine, unspecified, not intractable, without status migrainosus; M79.7 Fibromyalgia; F84.0 Autistic disorder; Z85.3 Personal history of malignant neoplasm of breast; Z90.49 Acquired absence of other specified parts of digestive tract; Z95.9 Presence of cardiac and vascular implant and graft, unspecified; Z91.040 Latex allergy status; Z88.8 Allergy status to other drugs, medicaments and biological substances; Z91.018 Allergy to other foods; Z91.048 Other nonmedicinal substance allergy status; Z79.899 Other long term (current) drug therapy

== ENCOUNTER → 2019-02-04 | Outpatient (CLI) | payer MEDICARE, OTHER ==
[~2019-02-04] MED LIST changes: +BACT800T5 PO
--- NOTE | 2019-02-05 14:37 | RADONC ---
RADIATION ONCOLOGY FOLLOWUP NOTE DATE: 02/04/2019 CHART NUMBER: [id number] DIAGNOSIS: Breast cancer. STAGE: Recurrent. ECOG PERFORMANCE STATUS: 0 FOLLOWUP NOTE: Ms. Correa is a very pleasant, 68-year-old white female with the diagnosis of multiple bilateral breast cancers, who is presenting to us today for routine followup visit 9-1/2 years post completion of external beam radiation therapy to the left breast and 17 years post completion of external beam radiation therapy to the right breast. The patient presents today reporting that she is doing quite well with no complaints at this time related to her radiation therapy or disease. She has no chest wall or bone pain. REVIEW OF SYSTEMS: The patient's review of systems is noncontributory. Denies nausea, vomiting, fevers, chills, night sweats, diplopia, headaches, anxiety or depression, anorexia, weight loss, visual disturbances, chest pain, urinary or bowel difficulties, bone pain, or neurological problems. PHYSICAL EXAMINATION The patient is a well-developed, well-nourished, 68-year-old white female in no acute distress. HEENT exam is normocephalic, atraumatic. Extraocular movements are intact. There is no palpable cervical, supraclavicular, infraclavicular, axillary, or inguinal lymphadenopathy present. Lungs are clear to auscultation and percussion. Heart has a regular rate and rhythm. Abdomen is benign with no hepatosplenomegaly, masses, or tenderness. The patient's bilateral chest deluna reveal no nodularity, ulceration or evidence of recurrent disease. Skeletal examination reveals no tenderness to pressure or percussion of the bony skeleton. Extremities reveal no clubbing, cyanosis, or edema. Neurologic exam is grossly intact, as is the remainder of the physical examination. ASSESSMENT: The patient is clinically JORGE at this time. At this point, I am discharging her from my followup since I will be retiring shortly. She will continue her close followup with her other physicians in the meantime. cc: Raphael Bear MD
== END ==
LOC: M ONCR 13:21
PROVIDERS: ATTEND Radiology Radiation Oncology
DX: D05.12 Intraductal carcinoma in situ of left breast (principal); C50.211 Malignant neoplasm of upper-inner quadrant of right female breast

== ENCOUNTER → 2019-03-04 | Outpatient (REF) | payer MEDICARE, OTHER | LOC: M LAB REF 10:39 | PROVIDERS: ATTEND Physician Assistant | DX: N39.0 Urinary tract infection, site not specified (principal) ==

== ENCOUNTER 2019-03-07 13:06 | Observation (INO) | payer MEDICARE, OTHER ==
[~2019-03-07] VITALS: Ht 165.1 cm; Wt 83.9 kg
[~2019-03-07 13:06] MED LIST changes: -ATOR40TA75; +ATOR40TA75 PO
[2019-03-07] MEDS ORDERED: KEFL500C17 PO (13:23)
[2019-03-07] MEDS ORDERED: NEUR400C PO (13:36)
[2019-03-07] MEDS ORDERED: TELM1TAB37 PO (13:36)
[2019-03-07] MEDS ORDERED: NITR4TASL SL (13:36)
[2019-03-07] MEDS ORDERED: METF500T13 PO (13:36)
[2019-03-07] MEDS ORDERED: NITR100C2 PO (13:36)
--- NOTE | 2019-03-07 14:25 | REP ---
Chest x-ray: Sitting AP view. History: CVA. Comparison study: August 27, 2018. Findings: Monitoring electrodes are present. The lungs are symmetrically aerated and free of infiltrate. Pleural angles are start sharp. Cardiomediastinal silhouette is unremarkable. No bony abnormalities seen. Impression: No active disease. Electronically Signed by Vineet Espinal MD 03/07/2019 02:16 P
--- NOTE | 2019-03-07 14:39 | REP ---
CT BRAIN WITHOUT CONTRAST: HISTORY: CVA. COMPARISON STUDY: December 25, 2016 CT FINDINGS: Preliminary digital paint mixer hand radiograph is unremarkable. Bony calvarium is intact. There is fairly heavy vascular calcification in the carotid siphons bilaterally. There is generalized atrophy again noted. There is no evidence of intracranial hemorrhage. Xiao-white differentiation pattern is normal above and below the tentorium. There is no evidence of acute infarction. No extra-axial fluid collection or mass is seen. IMPRESSION: Generalized atrophy and vascular calcification. No acute intracranial abnormality. Electronically Signed by Vineet Espinal MD 03/07/2019 05:04 P
[2019-03-07 14:42] LABS: BASO # 0.1 10^3/uL (0.0-0.2); BASO % 0.7 % (0.0-1.0); EOS # 0.3 10^3/uL (0.0-0.5); EOS % 3.4 % (0.0-3.0); HEMATOCRIT 40.8 % (36.0-47.0); HEMOGLOBIN 13.3 g/dl (12.0-15.5); LYMPH # 1.4 10^3/uL (1.5-5.0); LYMPH % 18.6 % (24.0-44.0); MEAN CORPUSCULAR HEMOGLOBIN 29.9 pg (27.0-33.0); MEAN CORPUSCULAR HGB CONC 32.6 g/dl (32.0-36.5); MEAN CORPUSCULAR VOLUME 91.7 fl (80.0-96.0); MONO % 13.6 % (0.0-5.0); NEUTROPHILS # 4.7 10^3/uL (1.5-8.5); NEUTROPHILS % 63.2 % (36.0-66.0); PLATELET COUNT, AUTOMATED 277 10^3/uL (150-450); RED BLOOD COUNT 4.45 10^6/uL (4.00-5.40); WHITE BLOOD COUNT 7.4 10^3/uL (4.0-10.0)
[2019-03-07 14:57] LABS: INR 0.94; PROTHROMBIN TIME 12.2 SECONDS (11.8-14.0)
[2019-03-07 14:58] LABS: PARTIAL THROMBOPLASTIN TIME 29.5 SECONDS (25.0-38.4)
[2019-03-07] MEDS ORDERED: CEPH500T PO (15:15)
[2019-03-07] MEDS ORDERED: D-10TAB3 PO (15:15)
[2019-03-07] MEDS ORDERED: PRES10CA2 PO (15:15)
[2019-03-07] MEDS ORDERED: PLAV1TAB2 PO (15:15)
[2019-03-07] MEDS ORDERED: CENT1TAB7 PO (15:15)
[2019-03-07 15:30] LABS: BLOOD UREA NITROGEN 13 MG/DL (7-18); CALCIUM LEVEL 9.5 MG/DL (8.8-10.2); CARBON DIOXIDE LEVEL 27 MEQ/L (21-32); CHLORIDE LEVEL 106 MEQ/L (98-107); CK-MB VALUE MASS < 1.0 NG/ML (<3.6); CPK CREATINE PHOSPHOKINASE 96 U/L (26-192); CREATININE FOR GFR 0.86 MG/DL (0.55-1.30); GLOMERULAR FILTRATION RATE > 60.0 (>39); GLUCOSE, FASTING 160 MG/DL (70-100); MB/CK RELATIVE INDEX 1.04 (< OR =4); POTASSIUM SERUM 4.2 MEQ/L (3.5-5.1); SODIUM LEVEL 141 MEQ/L (136-145); TROPONIN I < 0.02 NG/ML (< 0.10)
--- NOTE | 2019-03-07 16:54 | HPEPDOC ---
[facility] Medical History & Physical Date of Admission Mar 07, 2019 Date of Service: Mar 07, 2019 History and Physical CHIEF COMPLAINT: R. eye blurry vision HISTORY OF PRESENT ILLNESS: Patient is 68F with PMH macular degeneration and b/l cataracts with L. eye partial blindness, sensorineural dysfunction follows with Dr. Snell, DM, HLD, ND with no stent, Uterine ca, breast ca s/p b/l mastectomy, and seizure disorder brought into the ER with complaints of impairment in R. eye vision that lasted for about 1 hour this afternoon and had resolved. assisted with history. Patient states that her vision went white for a short period of time but otherwise has no other symptoms including any unilateral or bilateral weakness or other sensory deficits. Currently states that she feels well without any complaints including chest pain, SOB, fever, chills. PAST MEDICAL HISTORY: Refer to [facility] PAST SURGICAL HISTORY: ADELINE b/l Mastectomy Cholecystectomy SOCIAL HISTORY: Denies tobacco, alcohol or illicit drug use. FAMILY HISTORY: Mother- MS Son- MS Father- CAD ALLERGIES: Please see below. REVIEW OF SYSTEMS: 10 point review of system negative except as stated in [facility] HOME MEDICATIONS: Please see below. PHYSICAL EXAMINATION: General: No acute distress, Alert Eyes: Normal sclera, EOMI, HALLEY, impair superior half visual field in the L. eye HENT: Atraumatic, neck supple, moist mucous membranes Cardiovascular: Normal rate, normal rhythm. Pulmonary: Clear to auscultation b/l, no wheezing GI: Soft, nontender, nondistended Skin: Warm and dry Neuro: CN grossly intact. No focal deficits. Strengths equal b/l. Psych: oriented x 3 LABORATORY DATA: See below. IMAGING: CT Head- IMPRESSION: Generalized atrophy and vascular calcification. No acute intracranial abnormality. MRI Head- Pending MRA- Pending MICROBIOLOGY: Please see below. ASSESSMENT AND PLAN: 1. Transient visual loss - Likely 2/2 TIA. Vision had returned to baseline. - CT head with no acute findings. MRI brain and MRA pending. - Allergy to ASA, is already on Plavix. c/w Plavix and high intensity statin. - f/u MRI/MRA findings. - No focal neurological deficits noted at this time. Able to ambulate freely without any weakness/deficits, does not appear to need PT. 2. Sensorineural dysfunction - Very sensitive to external stimuli. Follows with Dr. Snell with neurology. - resume home medications. 3. DM Type 2 - ISS and fingerstick ACHS. - Consistent carbohydrate diet. 4. HLD - Resume statin. Switch to high intensity statin if not already on. 5. HTN - resume norvasc. DVT ppx: Lovenox and SCD Code status: Full code Vital Signs Vital Signs Date Time Temp Pulse Resp B/P (MAP) Pulse Ox O2 Delivery O2 Flow Rate FiO2 03/07/19 15:15 77 20 121/70 (87) 98 Room Air 03/07/19 13:41 98.8 Laboratory Data Labs 24H Laboratory Tests 2 03/07/19 14:21: Prothrombin Time 12.2, Prothromb Time International Ratio 0.94, Activated Partial Thromboplast Time 29.5 03/07/19 14:22: Immature Granulocyte % (Auto) 0.5, Neutrophils (%) (Auto) 63.2, Lymphocytes (%) (Auto) 18.6L, Monocytes (%) (Auto) 13.6H, Eosinophils (%) (Auto) 3.4H, Basophils (%) (Auto) 0.7, Neutrophils # (Auto) 4.7, Lymphocytes # (Auto) 1.4L, Monocytes # (Auto) 1.0H, Eosinophils # (Auto) 0.3, Basophils # (Auto) 0.1, Nucleated Red Blood Cells % (auto) 0.0, Anion Gap 8, Glomerular Filtration Rate > 60.0, Calcium Level 9.5, Total Creatine Kinase 96, Creatine Kinase MB < 1.0, Creatine Kinase MB Relative Index 1.04, Troponin I < 0.02 CBC/BMP Laboratory Tests 03/07/19 14:22 Home Medications Scheduled Amlodipine Besylate (Amlodipine Besylate) 10 Mg Tab, 10 MG PO DAILY Atorvastatin Calcium (Atorvastatin Calcium) 40 Mg Tab, 40 MG PO QHS Carvedilol (Carvedilol) 6.25 Mg Tab, 6.25 MG PO BID 1200, 1800 Cephalexin (Cephalexin) 500 Mg Tablet, 500 MG PO BID 7 DAYS PRESCRIBED 03/07 Cholecalciferol (Vitamin D3) (Vitamin D3) 1,000 Unit Tablet, 1,000 UNIT PO DAILY Clopidogrel Bisulfate (Plavix) 75 Mg Tablet, 75 MG PO DAILY 1500 Gabapentin (Neurontin) 400 Mg Capsule, 400 MG PO TID Metformin HCl (Metformin HCl) 500 Mg Tablet, 500 MG PO DAILY BREAKFAST Multivitamin/Iron/Folic Acid (Centrum Women Tablet) 1 Each Tablet, 1 EACH PO DAILY Nitroglycerin (Nitrostat) 0.4 Mg Tab.subl, 0.4 MG SL PRN Telmisartan (Telmisartan) 80 Mg Tablet, 80 MG PO QHS Ubidecarenone/Vit E Acet (Co Q-10 100 mg Softgel) 100 Mg Cap, 100 MG PO DAILY Vit C/E/Zn/Coppr/Lutein/Zeaxan (Preservision Areds 2 Softgel) 1 Each Capsule, 1 EACH PO BID Scheduled PRN Labetalol HCl (Labetalol HCl) 100 Mg Tab, 100 MG PO PRN PRN for hypertension BP >160 Allergies Coded Allergies: ibuprofen (Verified Allergy, Severe, DOUBLE VISION,EFECTS BP,BREATHING, 07/25/18) latex (Verified Allergy, Intermediate, Hives / Rash, 07/25/18) tetanus toxoid, adsorbed (Verified Allergy, Intermediate, Fever / Swelling, 07/25/18) METALS (Verified Allergy, Unknown, METALLIC DYES, 07/25/18) aspirin (Verified Adverse Reaction, Severe, Hypertension, Seizures, 07/25/18) Wheat (Verified Adverse Reaction, Mild, DIZZY, 06/22/18) A-FIB/CHADSVASC A-FIB History Current/History of A-Fib/PAF?: No CRISTIAN MAHARAJ MD Mar 07, 2019 16:54
[2019-03-07] MEDS ORDERED: DEXTROSE 50% 50 ML SYRINGE IV PRN (17:00)
[2019-03-07] MEDS ORDERED: GLUCAGON FOR INJ 1 MG VIAL (J1610) SC PRN (17:00)
[2019-03-07] MEDS ORDERED: GLUCOSE 4 GM CHEW TABLET PO PRN (17:00)
[2019-03-07] MEDS ORDERED: HumaLOG INSULIN (NovoLOG) PER UNIT SC SCH ×2 (17:30→21:00)
[2019-03-07 17:45] VITALS: BP 160/76
--- NOTE | 2019-03-07 18:05 | REPVR ---
PROCEDURE INFORMATION: Exam: MR Head Without Contrast Exam date and time: 03/07/2019 5:26 PM Clinical history: 68 years old, female; Visual disturbance; Patient HX: PT states unsure if medication reaction, increased BP, loss of vision, new antibacterial medication; Additional info: CVA TECHNIQUE: Imaging protocol: MR of the head without contrast. COMPARISON: CT Head without contrast 03/07/2019 1:50 PM FINDINGS: No abnormal restriction of diffusion to indicate acute CVA. Midline structures and cerebellar tonsillar position appear normal. Ventricles, cisterns and sulci are symmetrically prominent. No intracranial mass, midline shift or abnormal extra-axial fluid. No acute intracranial hemorrhage. Mild pattern of increased T2 and flair signal in supratentorial white matter. Optic chiasm and pituitary infundibulum appear normal. No cerebellopontine angle mass. Normal vascular flow voids in major intracranial arteries and dural venous sinuses. Paranasal sinuses are clear. Mastoid air cells are normally aerated. Optic globes and orbits are unremarkable. Incidental calcified scalp sebaceous cysts, as seen on CT. These are benign. IMPRESSION: No acute intracranial abnormality. Mild atrophy and minimal white matter changes consistent with chronic microangiopathic disease. Electronically signed by: Robb Glez On 03/07/2019 18:05:27 PM
--- NOTE | 2019-03-07 18:09 | REPVR ---
PROCEDURE INFORMATION: Exam: MR Angiogram Head Without Contrast, Arteries Exam date and time: 03/07/2019 5:26 PM Clinical history: 68 years old, female; Visual disturbance; Sudden visual loss; Additional info: CVA TECHNIQUE: Imaging protocol: MR angiogram head without contrast. Exam focused on the arteries. 3D rendering: MIP reconstructed images were created and reviewed. COMPARISON: CT Head without contrast 03/07/2019 1:50 PM FINDINGS: Anterior circulation: Normal flow signal and luminal caliber in the petrous, cavernous and supraclinoid internal carotid arteries. Normal appearance of the anterior cerebral artery branches and middle cerebral artery branches through the MCA trifurcations. No occlusion, high-grade focal stenosis or dissection. No aneurysm. Posterior circulation: Normal distal vertebral arteries, with patent normal caliber basilar artery, and normal superior cerebellar and posterior cerebral arteries. No occlusion, high-grade stenosis or aneurysm. Bilateral P1 segments are diminutive and normal caliber posterior cerebral arteries are supplied by large posterior communicating arteries IMPRESSION: Unremarkable MR angiogram of the [place] and intracranial vertebrobasilar system. Electronically signed by: Robb Glez On 03/07/2019 18:09:21 PM
[2019-03-07] MEDS: CLOPIDOGREL 75 MG TAB PO SCH (18:32)
[2019-03-07] MEDS: CARVedilol 6.25 MG TAB PO SCH (18:32)
[2019-03-07 20:00] VITALS: BP 138/64
[2019-03-07] MEDS ORDERED: ATORVASTATIN 20 MG TAB PO SCH (21:00)
[2019-03-07] MEDS ORDERED: GABAPENTIN 400 MG CAP PO SCH (21:00)
[2019-03-07] MEDS ORDERED: [UNRECOGNIZED DRUG - OTHER] PO SCH (21:00)
[2019-03-07] MEDS ORDERED: GABAPENTIN PO SCH (21:00)
[2019-03-07] MEDS ORDERED: TELMISARTAN 20 MG TAB PO SCH (21:00)
[2019-03-07] MEDS ORDERED: CALCIUM CARBONATE 500 MG CHEW U/D PO PRN (21:00)
--- NOTE | 2019-03-07 21:30 | REPVR ---
PROCEDURE INFORMATION: Exam: US Duplex Bilateral Extracranial Arteries Exam date and time: 03/07/2019 9:10 PM Clinical history: 68 years old, female; Other: TIA; Additional info: TIA symptoms TECHNIQUE: Imaging protocol: Real-time Duplex ultrasound scan of the bilateral carotid and vertebral arteries combining singer scale, color Doppler and spectral waveform analysis. Bilateral exam. COMPARISON: CT Head without contrast 03/07/2019 1:50 PM FINDINGS: Visualized portions of the bilateral common carotid, internal carotid, and external carotid arteries reveals no occlusion or dissection flap. No significant atherosclerotic plaque. Doppler evaluation shows normal flow directionality. Peak systolic velocities (in cm/sec) are as follows: Right CCA: 92 Right ICA: 85 Right ECA: 90 Right I/C ratio: 0.9 Right Vertebral: 42 Left CCA: 75 Left ICA: 84 Left ECA: 127 Left I/C ratio: 1.1 Left Vertebral: 39 IMPRESSION: No hemodynamically significant stenosis. Electronically signed by: Robb Glez On 03/07/2019 21:30:33 PM
[2019-03-07] MEDS: CEPHALEXIN 500 MG CAP PO SCH (22:37)
[2019-03-08 00:49] VITALS: BP 139/65
[2019-03-08 06:00] VITALS: BP 130/80
[2019-03-08 06:23] LABS: HEMATOCRIT 38.4 % (36.0-47.0); HEMOGLOBIN 12.7 g/dl (12.0-15.5); MEAN CORPUSCULAR HEMOGLOBIN 29.7 pg (27.0-33.0); MEAN CORPUSCULAR HGB CONC 33.1 g/dl (32.0-36.5); MEAN CORPUSCULAR VOLUME 89.9 fl (80.0-96.0); PLATELET COUNT, AUTOMATED 263 10^3/uL (150-450); RED BLOOD COUNT 4.27 10^6/uL (4.00-5.40); WHITE BLOOD COUNT 6.2 10^3/uL (4.0-10.0)
[2019-03-08 06:39] LABS: BLOOD UREA NITROGEN 10 MG/DL (7-18); CALCIUM LEVEL 9.1 MG/DL (8.8-10.2); CARBON DIOXIDE LEVEL 26 MEQ/L (21-32); CHLORIDE LEVEL 110 MEQ/L (98-107); CREATININE FOR GFR 0.81 MG/DL (0.55-1.30); GLOMERULAR FILTRATION RATE > 60.0 (>39); GLUCOSE, FASTING 119 MG/DL (70-100); POTASSIUM SERUM 3.9 MEQ/L (3.5-5.1); SODIUM LEVEL 142 MEQ/L (136-145)
[2019-03-08 06:59] VITALS: BP 164/80
[2019-03-08] MEDS ORDERED: GABAPENTIN 400 MG CAP PO SCH (07:00)
[2019-03-08] MEDS: [UNRECOGNIZED DRUG - OTHER] PO SCH ×2 (07:46→15:08)
[2019-03-08] MEDS: GABAPENTIN PO SCH ×2 (07:46→15:08)
[2019-03-08 07:47] VITALS: BP 162/78
[2019-03-08] MEDS: CEPHALEXIN 500 MG CAP PO SCH (08:38)
[2019-03-08] MEDS ORDERED: amLODIPine 10 MG TAB PO SCH (09:00)
[2019-03-08] MEDS ORDERED: ENOXAPARIN 40 MG/0.4 ML SYRINGE (J1650) SC SCH (09:00)
--- NOTE | 2019-03-08 12:06 | ECGEPIP ---
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
[2019-03-08 12:20] VITALS: BP 168/78
[2019-03-08] MEDS: CARVedilol 6.25 MG TAB PO SCH (12:20)
[2019-03-08 14:00] VITALS: BP 148/82
[2019-03-08] MEDS: CLOPIDOGREL 75 MG TAB PO SCH (15:08)
--- NOTE | 2019-03-08 15:08 | ECHO ---
DATE OF PROCEDURE: 03/08/2019 REFERRING PHYSICIAN: Luis Carlos oWlf MD INDICATION: Stroke. Height 165 cm, weight 84 kg. DIMENSIONS: IVS: 1.0 LV: 3.6 LVPW: 1.0 LA: 3.5 Aorta: 2.7 IVC: 1.4 Mitral E wave velocity: 95 A wave: 103 E prime septal: 4.6 E prime lateral: 9.9 FINDINGS: The study is of fair technical quality but useful information was obtained. The patient is in sinus rhythm. Left ventricle is normal size with normal left ventricular (LV) systolic function. I do not appreciate any segmental wall motion abnormality. Estimated ejection fraction (EF) is around 60-65%, computer calculated EF was 65%. Right ventricle is also normal size and systolic function. Both atria appear normal. Aortic valve has three cusps and normal mobility. Minimal sclerosis is noted. Mitral valve exhibits minimal degenerative abnormalities but preserved mobility. Tricuspid and pulmonic valves appear normal. No pericardial effusion is noted even though small amount of fat pad is present. Aortic root is normal. Aortic arch and abdominal aorta appear grossly normal based on limited views. Doppler interrogation reveals no aortic stenosis and trace aortic insufficiency. There is also trace mitral and tricuspid insufficiency. Calculated pulmonary artery pressure is within normal limits. Mitral inflow pattern and tissue Doppler imaging of mitral annulus revealed grade 1 diastolic dysfunction. Injection of a agitated saline through peripheral vein reveals good opacification of right-sided heart chambers but no evidence for contrast crossing to left side of the heart. CONCLUSIONS: 1. Study is of fair technical quality. 2. Normal LV size and systolic function, grade 1 diastolic dysfunction. 3. No significant valvular disease. 4. Normal central venous pressure and normal pulmonary artery pressure. 5. Negative "bubble study." COMMENT: Subacute bacterial endocarditis (SBE) prophylaxis is not recommended.
--- NOTE | 2019-03-08 15:17 | DS.PDOC ---
Discharge Summary General Date of Admission Mar 07, 2019 at 13:07 Date of Discharge 03/08/19 Discharge Summary PROCEDURES PERFORMED DURING STAY: [None]. ADMITTING DIAGNOSES: 1. TIA- vision impairment 2. Sensorineural dysfunction 3. DM 4. HTN 5. HLD DISCHARGE DIAGNOSES: 1. TIA- vision impairment 2. Sensorineural dysfunction 3. DM 4. HTN 5. HLD COMPLICATIONS/CHIEF COMPLAINT: Transient Visual Loss. HISTORY OF PRESENT ILLNESS: "Patient is 68F with PMH macular degeneration and b/l cataracts with L. eye partial blindness, sensorineural dysfunction follows with Dr. Snell, DM, HLD, NE with no stent, Uterine ca, breast ca s/p b/l mastectomy, and seizure disorder brought into the ER with complaints of impairment in R. eye vision that lasted for about 1 hour this afternoon and had resolved. assisted with history. Patient states that her vision went white for a short period of time but other crowder has no other symptoms including any unilateral or bilateral weakness or other sensory deficits. Currently states that she feels well without any complaints including chest pain, SOB, fever, chills. " HOSPITAL COURSE: Patient was admitted for TIA workup. CT, MRIs and carotid doppler are negative for acute changes and stenosis. Symptoms had mostly resolved while in ER and patient stated that she had returned to her baseline. Patient already on Plavix and high intensity statin, allergic to ASA. Will discharge patient to follow up with PCP and neurology. DISCHARGE MEDICATIONS: Please see below. ALLERGIES: Please see below. PHYSICAL EXAMINATION ON DISCHARGE: VITAL SIGNS: Please see below. General: No acute distress, Alert Eyes: Normal sclera, EOMI, HALLEY, impair superior half visual field in the L. eye HENT: Atraumatic, neck supple, moist mucous membranes Cardiovascular: Normal rate, normal rhythm. Pulmonary: Clear to auscultation b/l, no wheezing GI: Soft, nontender, nondistended Skin: Warm and dry Neuro: CN grossly intact. No focal deficits. Strengths equal b/l. Psych: oriented x 3 LABORATORY DATA: Please see below. IMAGING: CT Head- IMPRESSION: Generalized atrophy and vascular calcification. No acute intracranial abnormality. MRI Head- IMPRESSION: No acute intracranial abnormality. Mild atrophy and minimal white matter changes consistent with chronic microangiopathic disease. MRA- IMPRESSION: Unremarkable MR angiogram of the [place] of Srinivasan and intracranial vertebrobasilar system. Carotid doppler- IMPRESSION: No hemodynamically significant stenosis. ACTIVITY: [As tolerated]. DIET: Consistent carbohydrate DISCHARGE PLAN: f/u PCP and neurology f/u ECHO DISPOSITION: Home. DISCHARGE INSTRUCTIONS: f/u PCP and neurology f/u ECHO ITEMS TO FOLLOWUP ON ON OUTPATIENT: 1. ECHO DISCHARGE CONDITION: [Stable]. TIME SPENT ON DISCHARGE: 34 minutes. Vital Signs/I&Os Vital Signs Date Time Temp Pulse Resp B/P (MAP) Pulse Ox O2 Delivery O2 Flow Rate FiO2 03/08/19 12:20 85 168/78 03/08/19 06:00 97.8 18 96 Room Air I&O- Last 24 Hours up to 6 AM 03/08/19 05:59 Intake Total 300 ml Output Total 0 ml Balance 300 ml Laboratory Data Labs 24H Laboratory Tests 2 03/07/19 18:06: Bedside Glucose (Misc Panel) 119H 03/07/19 22:44: Bedside Glucose (Misc Panel) 92 03/08/19 05:59: Nucleated Red Blood Cells % (auto) 0.0, Anion Gap 6L, Glomerular Filtration Rate > 60.0, Calcium Level 9.1 03/08/19 11:51: Bedside Glucose (Misc Panel) 156H CBC/BMP Laboratory Tests 03/08/19 05:59 FSBS Laboratory Tests Test 03/07/19 18:06 03/07/19 22:44 03/08/19 11:51 Range/Units Bedside Glucose (Misc Panel) 119 92 156 83-110 MG/DL Discharge Medications Scheduled Amlodipine Besylate (Amlodipine Besylate) 10 Mg Tab, 10 MG PO DAILY, (Reported) Atorvastatin Calcium (Atorvastatin Calcium) 40 Mg Tab, 40 MG PO QHS, (Reported) Carvedilol (Carvedilol) 6.25 Mg Tab, 6.25 MG PO BID, (Reported) 1200, 1800 Cephalexin (Cephalexin) 500 Mg Tablet, 500 MG PO BID, (Reported) 7 DAYS PRESCRIBED 03/07 Cholecalciferol (Vitamin D3) (Vitamin D3) 1,000 Unit Tablet, 1,000 UNIT PO DAILY, (Reported) Clopidogrel Bisulfate (Plavix) 75 Mg Tablet, 75 MG PO DAILY, (Reported) 1500 Gabapentin (Neurontin) 400 Mg Capsule, 400 MG PO TID, (Reported) Metformin HCl (Metformin HCl) 500 Mg Tablet, 500 MG PO DAILY, (Reported) BREAKFAST Multivitamin/Iron/Folic Acid (Centrum Women Tablet) 1 Each Tablet, 1 EACH PO DAILY, (Reported) Nitroglycerin (Nitrostat) 0.4 Mg Tab.subl, 0.4 MG SL PRN, (Reported) Telmisartan (Telmisartan) 80 Mg Tablet, 80 MG PO QHS, (Reported) Ubidecarenone/Vit E Acet (Co Q-10 100 mg Softgel) 100 Mg Cap, 100 MG PO DAILY, (Reported) Vit C/E/Zn/Coppr/Lutein/Zeaxan (Preservision Areds 2 Softgel) 1 Each Capsule, 1 EACH PO BID, (Reported) Scheduled PRN Labetalol HCl (Labetalol HCl) 100 Mg Tab, 100 MG PO PRN PRN for hypertension, (Reported) BP >160 Allergies Coded Allergies: ibuprofen (Verified Allergy, Severe, DOUBLE VISION,EFECTS BP,BREATHING, 07/25/18) latex (Verified Allergy, Intermediate, Hives / Rash, 07/25/18) tetanus toxoid, adsorbed (Verified Allergy, Intermediate, Fever / Swelling, 07/25/18) METALS (Verified Allergy, Unknown, METALLIC DYES, 07/25/18) aspirin (Verified Adverse Reaction, Severe, Hypertension, Seizures, 07/25/18) Wheat (Verified Adverse Reaction, Mild, DIZZY, 06/22/18) CRISTIAN MAHARAJ MD Mar 08, 2019 15:17
== END 2019-03-08 16:01 | disposition home or self-care (01) ==
LOC: M ED 13:06 → M ED INP 13:07 → M PCU 18:21 → M MSPAV 03-08 00:48
PROVIDERS: ADMIT Student in an Organized Health Care Education/Training Program; ATTEND Student in an Organized Health Care Education/Training Program
DX: G45.9 Transient cerebral ischemic attack, unspecified (principal); H53.121 Transient visual loss, right eye; R41.82 Altered mental status, unspecified; E11.9 Type 2 diabetes mellitus without complications; I10 Essential (primary) hypertension; E78.5 Hyperlipidemia, unspecified; H35.30 Unspecified macular degeneration; H26.9 Unspecified cataract; H54.10 Blindness, one eye, low vision other eye, unspecified eyes; I67.82 Cerebral ischemia; I25.2 Old myocardial infarction; G40.909 Epilepsy, unspecified, not intractable, without status epilepticus; Z85.3 Personal history of malignant neoplasm of breast; Z90.13 Acquired absence of bilateral breasts and nipples; Z85.42 Personal history of malignant neoplasm of other parts of uterus; Z90.710 Acquired absence of both cervix and uterus; Z79.899 Other long term (current) drug therapy; Z79.02 Long term (current) use of antithrombotics/antiplatelets; Z79.2 Long term (current) use of antibiotics; Z79.84 Long term (current) use of oral hypoglycemic drugs; Z88.6 Allergy status to analgesic agent; Z88.8 Allergy status to other drugs, medicaments and biological substances; Z88.7 Allergy status to serum and vaccine; Z91.040 Latex allergy status; Z91.018 Allergy to other foods; Z91.048 Other nonmedicinal substance allergy status
CPT/HCPCS: 36415; 70450; 70544; 70551; 71045; 80048; 82550; 82553; 84484; 85025; 85027; 85610; 85730; 86850; 86900; 86901; 93005; 93041; 93306; 93880; 94760; 96372; 97162; 99285; G0378; J1650

== ENCOUNTER 2019-06-03 05:17 | Emergency (ER) | payer MEDICARE, OTHER ==
[~2019-06-03] VITALS: Ht 165.1 cm; Wt 84.1 kg
[~2019-06-03 05:17] MED LIST changes: +CENT1TAB7 PO; +CEPH500T PO; +D-10TAB3 PO; +KEFL500C17 PO; +METF500T13 PO; +NEUR400C PO; +NITR100C2 PO; +NITR4TASL SL; +PLAV1TAB2 PO; +PRES10CA2 PO; +TELM1TAB37 PO
[2019-06-03 06:29] LABS: HEMATOCRIT 40.2 % (36.0-47.0); HEMOGLOBIN 12.8 g/dl (12.0-15.5); MEAN CORPUSCULAR HGB CONC 31.8 g/dl (32.0-36.5); MEAN CORPUSCULAR VOLUME 91.2 fl (80.0-96.0); PLATELET COUNT, AUTOMATED 224 10^3/uL (150-450); RED BLOOD COUNT 4.41 10^6/uL (4.00-5.40); WHITE BLOOD COUNT 5.7 10^3/uL (4.0-10.0)
[2019-06-03 06:59] LABS: ALBUMIN 3.8 GM/DL (3.2-5.2); ALT/SGPT 64 U/L (12-78); BILIRUBIN,TOTAL 0.5 MG/DL (0.2-1.0); BLOOD UREA NITROGEN 14 MG/DL (7-18); CALCIUM LEVEL 9.8 MG/DL (8.8-10.2); CARBON DIOXIDE LEVEL 27 MEQ/L (21-32); CHLORIDE LEVEL 104 MEQ/L (98-107); CK-MB VALUE MASS < 1.0 NG/ML (<3.6); CPK CREATINE PHOSPHOKINASE 110 U/L (26-192); CREATININE FOR GFR 0.88 MG/DL (0.55-1.30); GLOMERULAR FILTRATION RATE > 60.0 (>39); GLUCOSE, FASTING 131 MG/DL (70-100); LIPASE 171 U/L (73-393); MB/CK RELATIVE INDEX 0.91 (< OR =4); POTASSIUM SERUM 4.3 MEQ/L (3.5-5.1); SODIUM LEVEL 140 MEQ/L (136-145); TOTAL PROTEIN 6.7 GM/DL (6.4-8.2); TROPONIN I < 0.02 NG/ML (< 0.10)
[2019-06-03] MEDS ORDERED: TUMS500C PO (07:21)
[2019-06-03] MEDS ORDERED: MULT1TAB8 PO (07:21)
[2019-06-03] MEDS ORDERED: MICA40TA PO (07:21)
[2019-06-03] MEDS ORDERED: METF500T13 PO (07:21)
[2019-06-03] MEDS ORDERED: GNP250TA9 PO (07:21)
--- NOTE | 2019-06-03 08:17 | REP ---
Clinical: Chest pain . Comparison: 08/27/2018 . Technique: PA and lateral. Findings: The mediastinum and cardiac silhouette are normal. The lung zapata are clear and without acute consolidation, effusion, or pneumothorax. The skeletal structures are intact and normal. Impression: 1. No acute cardiopulmonary process. Electronically Signed by Ravi Martin MD 06/03/2019 08:09 A
[2019-06-03] MEDS: GASTROGRAFIN SOLUTION 30ML PO SCH ×2 (08:40→09:00)
[2019-06-03] MEDS ORDERED: ISOVUE-370 76% 100ML VIAL (Q9967) As Ordered ONE (09:46)
--- NOTE | 2019-06-03 10:27 | REP ---
Clinical: Pancreatitis. Technique: Axial contrast enhanced images from the bases to the pubic symphysis using oral (per protocol) and 100 ml Isovue 370 intravenous contrast material with coronal and sagittal re-formations. Findings: Lung bases are clear. Small hiatal hernia noted. Hepatic steatosis without focal hepatic lesion identified. Spleen, pancreas, bilateral adrenal glands and kidneys are normal. Evidence of prior cholecystectomy. No peripancreatic inflammatory stranding noted. The enteric system is without obstruction or acute inflammatory process. Scattered colonic and sigmoid diverticula noted without acute diverticulitis. Pelvis demonstrates normal bladder and evidence of prior hysterectomy. No pelvic fluid or ascites. No adenopathy. No free air. Abdominal aorta without aneurysm or dissection. Musculoskeletal structures demonstrate age-related degenerative changes. Impression: 1. Normal appearance to the pancreas and peripancreatic soft tissues. No stranding or fluid collection noted. 2. Hepatic steatosis. 3. Colonic diverticula without acute diverticulitis. Electronically Signed by Ravi Martin MD 06/03/2019 10:19 A
[2019-06-03 12:10] LABS: CPK CREATINE PHOSPHOKINASE 125 U/L (26-192); TROPONIN I < 0.02 NG/ML (< 0.10)
[2019-06-03] MEDS ORDERED: FAMO20TA PO (12:39)
[2019-06-03 13:13] VITALS: BP 139/63
--- NOTE | 2019-06-03 20:09 | ECGEPIP ---
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
--- NOTE | 2019-06-03 20:13 | ECGEPIP ---
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
== END 2019-06-03 13:21 | disposition home or self-care (01) ==
LOC: M ED 05:17
DX: R07.9 Chest pain, unspecified (principal); K21.9 Gastro-esophageal reflux disease without esophagitis; K76.0 Fatty (change of) liver, not elsewhere classified; K57.30 Diverticulosis of large intestine without perforation or abscess without bleeding; I11.0 Hypertensive heart disease with heart failure; E11.9 Type 2 diabetes mellitus without complications; E78.5 Hyperlipidemia, unspecified; Z85.42 Personal history of malignant neoplasm of other parts of uterus; Z85.3 Personal history of malignant neoplasm of breast; Z91.048 Other nonmedicinal substance allergy status; Z91.040 Latex allergy status; Z88.6 Allergy status to analgesic agent; Z88.7 Allergy status to serum and vaccine; Z79.84 Long term (current) use of oral hypoglycemic drugs; Z79.899 Other long term (current) drug therapy
CPT/HCPCS: 36415; 71046; 74177; 80053; 82550; 82553; 83690; 84484; 85027; 93005; 99285; Q9963; Q9967

== ENCOUNTER → 2019-07-13 | Outpatient (REF) | payer MEDICARE, OTHER ==
[~2019-07-13] MED LIST changes: +FAMO20TA PO; +GNP250TA9 PO; +MULT1TAB8 PO; +TUMS500C PO
[2019-07-13 10:29] LABS: FREE T4 1.02 NG/DL (0.76-1.46); THYROID STIMULATING HORMONE 4.46 uIU/ML (0.358-3.740)
== END ==
LOC: M SFHCPLAZ 08:17
PROVIDERS: ATTEND Family Medicine
DX: R09.89 Other specified symptoms and signs involving the circulatory and respiratory systems (principal)

== ENCOUNTER → 2019-09-15 | Outpatient (REF) | payer MEDICARE, OTHER | LOC: M LAB REF 19:43 | PROVIDERS: ATTEND Nurse Practitioner Family | DX: N39.0 Urinary tract infection, site not specified (principal) ==

== ENCOUNTER 2019-12-05 05:00 | Emergency (ER) | payer MEDICARE, OTHER ==
[~2019-12-05 05:00] MED LIST changes: -CEFD300CAP PO; -D31000TA2 PO; -KEPP250T5 PO; -METF-839 PO; -TUMS750C22 PO; -VITMTA PO
== END 2019-12-05 05:14 | disposition left against medical advice (07) ==
LOC: M ED 05:00
DX: Z53.21 Procedure and treatment not carried out due to patient leaving prior to being seen by health care provider (principal)

== ENCOUNTER → 2019-12-05 | Outpatient (REF) | payer MEDICARE, OTHER ==
[~2019-12-05] MED LIST changes: -AMLO10TA5 PO; +AMLO1TAB25 PO; +CEFD300CAP PO; +D31000TA2 PO; +KEPP250T5 PO; +METF-839 PO; +TUMS750C22 PO; +VITMTA PO
== END ==
LOC: M LAB REF 13:46
PROVIDERS: ATTEND Physician Assistant
DX: N39.0 Urinary tract infection, site not specified (principal)

== ENCOUNTER 2019-12-08 08:29 | Inpatient (IN) | payer MEDICARE, OTHER ==
[~2019-12-08 08:29] MED LIST changes: +ISOVUE-370 76% 100ML VIAL As Ordered ONE; +LORazepam 2 MG/ML VIAL As Ordered ONE
[2019-12-08] MEDS ORDERED: levETIRAcetam 500 MG/5 ML VIAL (KEPPRA IV)(J1953) As Ordered ONE (09:19)
[2019-12-08] MEDS ORDERED: CARVedilol 6.25 MG TAB As Ordered ONE ×2 (11:24→17:59)
[2019-12-08] MEDS ORDERED: amLODIPine 10 MG TAB As Ordered ONE (11:25)
[2019-12-08] MEDS ORDERED: MULTIVITAMINS/MINERALS THERAP 1 TAB As Ordered ONE (11:25)
[2019-12-08] MEDS ORDERED: CLOPIDOGREL 75 MG TAB As Ordered ONE (15:19)
[2019-12-08] MEDS ORDERED: LORazepam 2 MG/ML VIAL As Ordered ONE (16:48)
[2019-12-08] MEDS ORDERED: HumaLOG INSULIN (NovoLOG) PER UNIT As Ordered ONE (17:59)
[2019-12-08] MEDS: HumaLOG INSULIN (NovoLOG) PER UNIT SC SCH (21:00)
[2019-12-08] MEDS ORDERED: LORazepam 2 MG/ML VIAL IV SCH (21:15)
[2019-12-08] MEDS ORDERED: GLUCAGON INJ 1MG VIAL SC PRN (21:30)
[2019-12-08] MEDS ORDERED: GLUCOSE 4GM CHEW TABLET PO PRN (21:30)
[2019-12-08] MEDS ORDERED: DEXTROSE 50% 50 ML SYRINGE IV PRN (21:30)
[2019-12-08 22:00] VITALS: BP 119/55
[2019-12-08] MEDS: GABAPENTIN 400 MG PO SCH (22:26)
[2019-12-08] MEDS: ATORVASTATIN 20 MG TAB PO SCH (22:27)
[2019-12-08] MEDS: TELMISARTAN 20 MG TAB PO SCH (22:27)
[2019-12-08] MEDS: levETIRAcetam 250MG TABLET (KEPPRA) PO SCH (22:28)
[2019-12-08] MEDS ORDERED: VITMTA PO (23:37)
[2019-12-08] MEDS ORDERED: METF-839 PO (23:37)
[2019-12-08] MEDS ORDERED: TUMS750C22 PO (23:37)
[2019-12-08] MEDS ORDERED: D31000TA2 PO (23:37)
[2019-12-08] MEDS ORDERED: FAMO20TA PO (23:37)
[2019-12-09] MEDS ORDERED: TELM1TAB37 PO (01:55)
[2019-12-09] MEDS ORDERED: NITR4TASL SL (01:55)
[2019-12-09 06:00] VITALS: BP 122/55
[2019-12-09 06:53] LABS: HEMATOCRIT 39.8 % (36.0-47.0); HEMOGLOBIN 13.1 g/dl (12.0-15.5); MEAN CORPUSCULAR HEMOGLOBIN 30.2 pg (27.0-33.0); MEAN CORPUSCULAR HGB CONC 32.9 g/dl (32.0-36.5); MEAN CORPUSCULAR VOLUME 91.7 fl (80.0-96.0); PLATELET COUNT, AUTOMATED 235 10^3/uL (150-450); RED BLOOD COUNT 4.34 10^6/uL (4.00-5.40); WHITE BLOOD COUNT 6.8 10^3/uL (4.0-10.0)
[2019-12-09 07:25] LABS: CALCIUM LEVEL 9.1 MG/DL (8.8-10.2); CREATININE FOR GFR 1.14 MG/DL (0.55-1.30); POTASSIUM SERUM 4.6 MEQ/L (3.5-5.1)
[2019-12-09] MEDS: amLODIPine 10 MG TAB PO SCH (08:42)
[2019-12-09] MEDS: levETIRAcetam 250MG TABLET (KEPPRA) PO SCH ×2 (08:42→20:23)
[2019-12-09] MEDS: MULTIVITAMINS/MINERALS THERAP 1 TAB PO SCH (08:42)
[2019-12-09] MEDS: GABAPENTIN 400 MG PO SCH ×3 (08:42→20:22)
[2019-12-09] MEDS: HumaLOG INSULIN (NovoLOG) PER UNIT SC SCH ×4 (08:47→21:00)
[2019-12-09] MEDS: CARVedilol 6.25 MG TAB PO SCH ×2 (12:46→18:17)
[2019-12-09 14:00] VITALS: BP 140/66
[2019-12-09] MEDS: CLOPIDOGREL 75 MG TAB PO SCH (15:24)
--- NOTE | 2019-12-09 16:47 | IPNPDOC ---
Date Seen The patient was seen on 12/09/19. Progress Note SUBJECTIVE: Patient is a 69-year-old female with DM 2, macular degeneration, and blindness in the left eye here with seizure. No events overnight. She denies fever/chills, shortness of breath, abdominal pain, diarrhea, or dysuria. She has chest tenderness from costochondritis. She had an EEG this morning. Pending results. OBJECTIVE PHYSICAL EXAMINATION: VITAL SIGNS: Please see below. GENERAL: Comfortable, in no distress HEENT: Head normocephalic, atraumatic, no icterus CARDIOVASCULAR: Regular rate and rhythm. RESPIRATORY: Lungs clear to auscultation bilaterally . ABDOMINAL: Soft, nontender, normal bowel sounds EXTREMITIES: Mild pitting edema NEUROLOGICAL: CN 3-12 grossly intact PSYCHOLOGICAL: Reports hallucinations LABORATORY DATA, IMAGING STUDIES, MICROBIOLOGY: Please see below. DVT prophylaxis ordered?: Y ASSESSMENT AND PLAN: This is a 69-year-old female with DM, macular degeneration, and left eye blindness here with seizure. It occurred at home, and while in the ED, she had dysarthria, but it resolved quickly. UA not indicative of infection. MRI demonstrates chronic changes. Neurology is following, recommendations appreciated. Pending results from EEG and neurology recommendations. When patient is discharged, she would like the tests be sent to Dr. Snell's office (her neurologist) PROBLEMS: 1. Seizure vs essential tremor - Neurology following recommendations appreciated - MRI demonstrates degenerative changes - Pending EEG results - On Keppra and POM Neurontin 2. Mando Jackson Hallucination - She is blind in her left eye 3. Hypertension - Continue home regimen 4. GERD - Famotidine 5. Diabetes Mellitus - Carb consistent diet and insulin regimen 6. DVT ppx - Lovenox VS, I&O, 24H, Fishbone Vital Signs/I&O Vital Signs Date Time Temp Pulse Resp B/P (MAP) Pulse Ox O2 Delivery O2 Flow Rate FiO2 12/09/19 14:00 98.0 84 20 140/66 (90) 96 Room Air I&O- Last 24 Hours up to 6 AM 12/09/19 06:00 Intake Total 250 ml Output Total 300 ml Balance -50 ml Laboratory Data 24H LABS Laboratory Tests 2 12/09/19 06:00: Nucleated Red Blood Cells % (auto) 0.0, Anion Gap 6L, Glomerular Filtration Rate 50.0, Calcium Level 9.1 CBC/BMP Laboratory Tests 12/09/19 06:00 REMIGIO COKER DO Dec 09, 2019 16:47
[2019-12-09] MEDS ORDERED: FAMOTIDINE 20 MG TAB PO SCH (18:00)
[2019-12-09] MEDS: ATORVASTATIN 20 MG TAB PO SCH (20:23)
[2019-12-09] MEDS: TELMISARTAN 20 MG TAB PO SCH (20:24)
[2019-12-09 22:00] VITALS: BP 133/58
[2019-12-10 06:00] VITALS: BP 139/66
[2019-12-10] MEDS: HumaLOG INSULIN (NovoLOG) PER UNIT SC SCH ×2 (08:55→12:46)
[2019-12-10] MEDS: levETIRAcetam 250MG TABLET (KEPPRA) PO SCH (08:55)
[2019-12-10] MEDS: MULTIVITAMINS/MINERALS THERAP 1 TAB PO SCH (08:55)
[2019-12-10] MEDS: GABAPENTIN 400 MG PO SCH (08:56)
[2019-12-10] MEDS: amLODIPine 10 MG TAB PO SCH (08:56)
[2019-12-10] MEDS: ENOXAPARIN 40MG/0.4ML SYRINGE (J1650 PER 10MG) SC SCH ×2 (08:57→09:00)
[2019-12-10 11:17] LABS: HEMATOCRIT 40.1 % (36.0-47.0); HEMOGLOBIN 13.3 g/dl (12.0-15.5); MEAN CORPUSCULAR HGB CONC 33.2 g/dl (32.0-36.5); MEAN CORPUSCULAR VOLUME 90.5 fl (80.0-96.0); PLATELET COUNT, AUTOMATED 253 10^3/uL (150-450); RED BLOOD COUNT 4.43 10^6/uL (4.00-5.40); WHITE BLOOD COUNT 6.1 10^3/uL (4.0-10.0)
[2019-12-10 11:38] LABS: ALBUMIN 3.6 GM/DL (3.2-5.2); ALT/SGPT 111 U/L (12-78); BILIRUBIN,TOTAL 0.5 MG/DL (0.2-1.0); BLOOD UREA NITROGEN 14 MG/DL (7-18); CALCIUM LEVEL 8.9 MG/DL (8.8-10.2); CARBON DIOXIDE LEVEL 26 MEQ/L (21-32); CHLORIDE LEVEL 108 MEQ/L (98-107); CREATININE FOR GFR 0.97 MG/DL (0.55-1.30); GLOMERULAR FILTRATION RATE > 60.0 (>39); GLUCOSE, FASTING 212 MG/DL (70-100); POTASSIUM SERUM 4.2 MEQ/L (3.5-5.1); SODIUM LEVEL 138 MEQ/L (136-145); TOTAL PROTEIN 6.6 GM/DL (6.4-8.2)
[2019-12-10 11:47] LABS: VITAMIN B12 LEVEL 336 PG/ML (247-911)
[2019-12-10 12:45] VITALS: BP 163/72
[2019-12-10] MEDS: CARVedilol 6.25 MG TAB PO SCH (12:45)
[2019-12-10 14:00] VITALS: BP 155/72
[2019-12-10] MEDS ORDERED: GABAPENTIN 400 MG PO SCH (14:00)
[2019-12-10] MEDS: CLOPIDOGREL 75 MG TAB PO SCH (14:54)
[2019-12-10] MEDS ORDERED: KEPP250T5 PO (16:18)
[2019-12-10] MEDS ORDERED: CEFD300CAP PO (16:18)
--- NOTE | 2019-12-10 16:47 | DS.PDOC ---
Discharge Summary General Date of Admission Dec 08, 2019 at 11:00 Date of Discharge 12/10/19 Attending Physician: RAHUL JACKSON MD Specialist/Consultants Involve: DELMIS JIMÉNEZ MD Discharge Summary PROCEDURES PERFORMED DURING STAY: None. ADMITTING/DISCHARGE DIAGNOSES: 1. UTI 2. Hallucinations 2/2 UTI 3. ?essential tremor vs Seizure 4. Mando Paz Hallucination - left eye blindness 5. Hypertension 6. GERD 7. DM COMPLICATIONS/CHIEF COMPLAINT: Seizure HISTORY OF PRESENT ILLNESS/HOSPITAL COURSE: 69-year-old female with DM, macular degeneration, and left eye blindness here with seizure. It occurred at home, and while in the ED, she had dysarthria, but it resolved quickly. UA not indicative of infection. MRI demonstrates chronic changes. Neurology is following, recommendations appreciated. The patient was seen by Dr. Jiménez. I have spoken with him regarding the case and he notes that the patient's EEG is unremarkable, MRI with no acute changes, and he believes the hallucinations and possible exacerbation of essential tremor vs seizure may have been 2/2 UTI. He recommends d/c pt with keppra 500mg PO BID and f/u in office. Pt has participated with PT and cleared for d/c. Will give 5 days cefdinir to complete course of abx. Pt is agreeable. She is to f/u with PCP and neurology in 1 week. Return to ED if symptoms worsen. DISCHARGE MEDICATIONS: Please see below. ALLERGIES: Please see below. PHYSICAL EXAMINATION ON DISCHARGE: Vitals: (see below) General: No acute distress, laying comfortably in bed. HEENT: Moist mucous membranes. Neck: No JVD or lymphadenopathy Cardiac: RRR, No murmurs Pulm: Clear to auscultation b/l. No wheezing, rhonchi Abd: NT/ND + BS Ext: No edema or cyanosis Neuro : CN 2-12 intact. Strength 5/5 BUE, BLE. Blind at baseline L eye. AAOx3. LABORATORY DATA: Please see below. PROGNOSIS: Fair ACTIVITY: As tolerated. DIET: Low Na DISCHARGE PLAN/DISPOSITION: Home DISCHARGE INSTRUCTIONS: She is to f/u with PCP and neurology in 1 week. Return to ED if symptoms worsen. DISCHARGE CONDITION: Stable. TIME SPENT ON DISCHARGE: Greater than 34 minutes. Vital Signs/I&Os Vital Signs Date Time Temp Pulse Resp B/P (MAP) Pulse Ox O2 Delivery O2 Flow Rate FiO2 12/10/19 12:45 78 163/72 12/10/19 06:00 98.0 17 97 Room Air I&O- Last 24 Hours up to 6 AM 12/10/19 06:00 Intake Total 700 ml Output Total 575 ml Balance 125 ml Laboratory Data Labs 24H Laboratory Tests 2 12/10/19 11:00: Nucleated Red Blood Cells % (auto) 0.0, Anion Gap 4L, Glomerular Filtration Rate > 60.0, Calcium Level 8.9, Total Bilirubin 0.5, Aspartate Amino Transf (AST/SGOT) 65H, Alanine Aminotransferase (ALT/SGPT) 111H, Alkaline Phosphatase 178H, Total Protein 6.6, Albumin 3.6, Albumin/Globulin Ratio 1.2, Vitamin B12 Level 336 CBC/BMP Laboratory Tests 12/10/19 11:00 Microbiology Microbiology 12/08/19 Urine Culture - Final, Complete Discharge Medications Scheduled Amlodipine Besylate (Amlodipine Besylate) 10 Mg Tab, 10 MG PO DAILY, (Reported) Atorvastatin Calcium (Atorvastatin Calcium) 40 Mg Tab, 40 MG PO QHS, (Reported) Carvedilol (Carvedilol) 6.25 Mg Tab, 6.25 MG PO BID, (Reported) 1200, 1800 Cefdinir (Cefdinir) 300 Mg Capsule, 1 CAP PO BID Cholecalciferol (Vitamin D3) (Vitamin D3) 1,000 Unit Tablet, 1,000 UNITS PO DAILY, (Reported) Clopidogrel Bisulfate (Plavix) 75 Mg Tablet, 75 MG PO DAILY, (Reported) 1500 Famotidine (Famotidine) 20 Mg Tablet, 20 MG PO QPM, (Reported) Gabapentin (Neurontin) 400 Mg Capsule, 400 MG PO TID, (Reported) Levetiracetam (Keppra) 250 Mg Tablet, 500 MG PO BID Metformin HCl (Metformin HCl) 500 Mg Tablet, 500 MG PO QAM, (Reported) Metformin HCl (Metformin HCl) 500 Mg Tablet, 1,000 MG PO QPM, (Reported) Multivitamins (Thera M Plus Tablet) 1 Each Tablet, 1 TAB PO DAILY, (Reported) Telmisartan (Telmisartan) 80 Mg Tablet, 80 MG PO QHS, (Reported) Ubidecarenone/Vit E Acet (Co Q-10 100 mg Softgel) 100 Mg Cap, 100 MG PO DAILY, ( Reported) Vit C/E/Zn/Coppr/Lutein/Zeaxan (Preservision Areds 2 Softgel) 1 Each Capsule, 1 EACH PO BID, (Reported) Scheduled PRN Calcium Carbonate (Tums) 300 Mg Tab.chew, 750 MG PO Q4H PRN for HEARTBURN, (Reported) Nitroglycerin (Nitrostat) 0.4 Mg Tab.subl, 0.4 MG SL NITRO PRN for CHEST PAIN, (Reported) Allergies Coded Allergies: ibuprofen (Verified Allergy, Severe, DOUBLE VISION,EFECTS BP,BREATHING, 06/03/19) latex (Verified Allergy, Intermediate, Hives / Rash, 06/03/19) tetanus toxoid, adsorbed (Verified Allergy, Intermediate, Fever / Swelling, 06/03/19) METALS (Verified Allergy, Unknown, METALLIC DYES, 06/03/19) aspirin (Verified Adverse Reaction, Severe, Hypertension, Seizures, 06/03/19) Wheat (Verified Adverse Reaction, Mild, DIZZY, 06/03/19) RAHUL JACKSON MD Dec 10, 2019 16:46
[2019-12-12 20:48] LABS: CHOLESTEROL LEVEL 156 MG/DL (<200); CHOLESTEROL RISK RATIO 3.545 (<5); CK-MB VALUE MASS 1.1 NG/ML (<3.6); CPK CREATINE PHOSPHOKINASE 151 U/L (26-192); HDL CHOLESTEROL 44 MG/DL (>40); LDL CHOLESTEROL 53 MG/DL (<100); LIPASE 151 U/L (73-393); MB/CK RELATIVE INDEX 0.73 (< OR =4); NON-HDL-C 112 MG/DL; TRIGLYCERIDES LEVEL 295 MG/DL (<150); TROPONIN I < 0.02 NG/ML (< 0.10)
--- NOTE | 2020-01-06 12:37 | ECGEPIP ---
SINUS RHYTHM NORMAL ECG SEE SCANNED DOWNTIME REPORT MTDD
[2020-01-18 08:23] LABS: BASO % 0.7 % (0.0-1.0); EOS # 0.2 10^3/uL (0.0-0.5); EOS % 3.6 % (0.0-3.0); HEMATOCRIT 39.6 % (36.0-47.0); HEMOGLOBIN 12.9 g/dl (12.0-15.5); LYMPH # 1.4 10^3/uL (1.5-5.0); LYMPH % 22.5 % (24.0-44.0); MEAN CORPUSCULAR HEMOGLOBIN 29.8 pg (27.0-33.0); MEAN CORPUSCULAR HGB CONC 32.6 g/dl (32.0-36.5); MEAN CORPUSCULAR VOLUME 91.5 fl (80.0-96.0); MONO # 0.8 10^3/uL (0.0-0.8); MONO % 12.3 % (0.0-5.0); NEUTROPHILS # 3.7 10^3/uL (1.5-8.5); NEUTROPHILS % 60.1 % (36.0-66.0); PLATELET COUNT, AUTOMATED 230 10^3/uL (150-450); RED BLOOD COUNT 4.33 10^6/uL (4.00-5.40); WHITE BLOOD COUNT 6.1 10^3/uL (4.0-10.0)
[2020-01-18 09:33] LABS: INR 0.9; PARTIAL THROMBOPLASTIN TIME 28.1 SECONDS (24.2-38.5); PROTHROMBIN TIME 12.3 SECONDS (12.5-14.3)
--- NOTE | 2020-01-25 15:02 | EEG ---
DATE: 12/09/2019 DIAGNOSIS: Seizures. EEG# [id number]. REFERRING PHYSICIAN: Sheila Mojica MD HISTORY: Patient is a 69-year-old woman who was admitted at [facility] due to seizure-like spells and shaking without loss of consciousness. She is currently on Keppra, gabapentin, Pepcid, insulin, Lipitor, carvedilol, telmisartan. TECHNICAL DESCRIPTION: This baseline EEG was recorded by 21-scalp, ear, and two EKG electrodes and was reviewed in bipolar and referential montages following reformatting in 10-20 international electrode placement system. INTERPRETATION: Patient was noted to be in awake and drowsy states during this EEG. Resting and awake background rhythm consisted of well-formed posterior dominant rhythm with anterior-posterior gradient comprising of 9 Hz alpha activity measuring 15-40 microvolts in amplitude, which was symmetric and reactive to eye opening. Attenuation of posterior dominant rhythm was seen during transition to drowsiness. Stage 1 and 2 sleep were reviewed and were symmetric bilaterally. Hyperventilation and photic stimulation remained unremarkable. EKG revealed sinus rhythm with occasional PACs. No focal, lateralizing, or epileptiform abnormalities were seen. No relevant clinical activity was noted. CONCLUSION: This EEG in awake, drowsy states, stage 1 and 2 sleep is within normal limits. MTDD
[2020-01-26 12:13] LABS: APPEARANCE, URINE CLEAR (CLEAR); BACTERIA, URINE AUTO NEGATIVE (NEGATIVE); BILIRUBIN, URINE AUTO NEGATIVE (NEGATIVE); BLOOD, URINE BLOOD NEGATIVE (NEGATIVE); COLOR, URINE YELLOW (YELLOW); GLUCOSE, URINE (UA) AUTO NEGATIVE (NEGATIVE); KETONE, URINE AUTO NEGATIVE (NEGATIVE); LEUKOCYTE ESTERASE, URINE AUTO NEGATIVE (NEGATIVE); NITRITE, URINE AUTO NEGATIVE (NEGATIVE); PROTEIN, URINE AUTO NEGATIVE (NEGATIVE); RBC, URINE AUTO 0 /HPF (0-3); SPECIFIC GRAVITY URINE AUTO 1.016 (1.002-1.035); SQUAMOUS EPITHELIAL CELL UR AU 0 /HPF (0-6); UROBILINOGEN, URINE AUTO 0.2 mg/dL (0.0-2.0); WBC, URINE AUTO 1 /HPF (0-3)
== END 2019-12-10 17:17 | disposition home or self-care (01) | DRG 690 ==
LOC: M ED 08:29 → M MSPAV 11:00
PROVIDERS: ADMIT Internal Medicine; ATTEND Internal Medicine
DX: N39.0 Urinary tract infection, site not specified (principal); R44.2 Other hallucinations; H54.40 Blindness, one eye, unspecified eye; I10 Essential (primary) hypertension; K21.9 Gastro-esophageal reflux disease without esophagitis; E11.9 Type 2 diabetes mellitus without complications; H35.30 Unspecified macular degeneration; G25.0 Essential tremor; Z79.899 Other long term (current) drug therapy; Z91.040 Latex allergy status; Z88.6 Allergy status to analgesic agent; Z88.8 Allergy status to other drugs, medicaments and biological substances; Z88.7 Allergy status to serum and vaccine

== ENCOUNTER 2019-12-29 18:24 | Emergency (ER) | payer MEDICARE, OTHER ==
[~2019-12-29] VITALS: Ht 165.1 cm; Wt 87.3 kg
[~2019-12-29 18:24] MED LIST changes: +CEFD300CAP PO; +D31000TA2 PO; -ISOVUE-370 76% 100ML VIAL As Ordered ONE; +KEPP250T5 PO; -LORazepam 2 MG/ML VIAL As Ordered ONE; +METF-839 PO; +TUMS750C22 PO; +VITMTA PO
[2019-12-29 18:25] VITALS: BP 154/92
== END 2019-12-29 18:55 | disposition left against medical advice (07) ==
LOC: M ED 18:24
DX: Z53.21 Procedure and treatment not carried out due to patient leaving prior to being seen by health care provider (principal)

== ENCOUNTER 2019-12-29 19:29 | Emergency (ER) | payer MEDICARE, OTHER ==
[~2019-12-29] VITALS: Ht 162.6 cm; Wt 87.3 kg
[2019-12-29] MEDS ORDERED: levETIRAcetam INJection 500 MG in D5W MINI-BAG PLUS 100 ML IV ONE (20:45)
--- NOTE | 2019-12-29 20:53 | REPVR ---
PROCEDURE INFORMATION: Exam: CT Head Without Contrast Exam date and time: 12/29/2019 8:09 PM Age: 69 years old Clinical indication: Altered mental status/memory loss TECHNIQUE: Imaging protocol: Computed tomography of the head without contrast. Radiation optimization: All CT scans at this facility use at least one of these dose optimization techniques: automated exposure control; mA and/or kV adjustment per patient size (includes targeted exams where dose is matched to clinical indication); or iterative reconstruction. COMPARISON: CT Head without contrast 03/07/2019 1:50 PM FINDINGS: Brain: Normal. No hemorrhage. Unremarkable white matter. No mass effect. Ventricles: Normal. No ventriculomegaly. Bones/joints: Unremarkable. No acute fracture. Sinuses: Visualized sinuses are unremarkable. No fluid levels. Mastoid air cells: Visualized mastoid air cells are well aerated. Soft tissues: Unremarkable. IMPRESSION: No acute intracranial abnormality. Electronically signed by: Kristopher Maki On 12/29/2019 20:53:36 PM
[2019-12-29 21:05] LABS: BASO % 0.6 % (0.0-1.0); EOS # 0.2 10^3/uL (0.0-0.5); EOS % 3.1 % (0.0-3.0); HEMATOCRIT 39.7 % (36.0-47.0); LYMPH # 1.4 10^3/uL (1.5-5.0); MEAN CORPUSCULAR HGB CONC 32.7 g/dl (32.0-36.5); MEAN CORPUSCULAR VOLUME 91.5 fl (80.0-96.0); MONO # 0.8 10^3/uL (0.0-0.8); MONO % 12.1 % (0.0-5.0); NEUTROPHILS # 4.2 10^3/uL (1.5-8.5); NEUTROPHILS % 62.6 % (36.0-66.0); PLATELET COUNT, AUTOMATED 244 10^3/uL (150-450); RED BLOOD COUNT 4.34 10^6/uL (4.00-5.40); WHITE BLOOD COUNT 6.7 10^3/uL (4.0-10.0)
--- NOTE | 2019-12-29 21:25 | REPVR ---
PROCEDURE INFORMATION: Exam: XR Chest, 2 Views Exam date and time: 12/29/2019 8:51 PM Age: 69 years old Clinical indication: Other: AMS; Additional info: Altered mental status TECHNIQUE: Imaging protocol: XR of the chest Views: 2 views. COMPARISON: CR Chest, 2 view PA, Lat 06/03/2019 6:03 AM FINDINGS: Lungs: Unremarkable. No consolidation. Pleural space: Unremarkable. No pleural effusion. No pneumothorax. Heart/Mediastinum: Unremarkable. No cardiomegaly. Bones/joints: Degenerative changes of the spine. IMPRESSION: No acute abnormality. Electronically signed by: Kristopher Maki On 12/29/2019 21:24:52 PM
[2019-12-29 21:44] LABS: ALBUMIN 3.8 GM/DL (3.2-5.2); ALT/SGPT 84 U/L (12-78); BILIRUBIN,DIRECT 0.2 MG/DL (0.0-0.2); BILIRUBIN,TOTAL 0.6 MG/DL (0.2-1.0); BLOOD UREA NITROGEN 13 MG/DL (7-18); CALCIUM LEVEL 9.3 MG/DL (8.8-10.2); CARBON DIOXIDE LEVEL 24 MEQ/L (21-32); CHLORIDE LEVEL 108 MEQ/L (98-107); CK-MB VALUE MASS < 1.0 NG/ML (<3.6); CPK CREATINE PHOSPHOKINASE 109 U/L (26-192); CREATININE FOR GFR 0.89 MG/DL (0.55-1.30); ETHYL ALCOHOL (ETHANOL) < 0.003 % (0.000-0.010); GLOMERULAR FILTRATION RATE > 60.0 (>39); GLUCOSE, FASTING 145 MG/DL (70-100); MB/CK RELATIVE INDEX 0.92 (< OR =4); POTASSIUM SERUM 4.2 MEQ/L (3.5-5.1); SODIUM LEVEL 139 MEQ/L (136-145); TOTAL PROTEIN 6.9 GM/DL (6.4-8.2); TROPONIN I < 0.02 NG/ML (< 0.10)
[2019-12-29] MEDS ORDERED: LORazepam 2 MG/ML VIAL IV STA (22:39)
[2019-12-29] MEDS ORDERED: levETIRAcetam 250MG TABLET (KEPPRA) PO ONE (22:45)
[2019-12-30] VITALS: BP 160/70
--- NOTE | 2020-01-04 12:07 | ECGEPIP ---
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
== END 2019-12-30 00:29 | disposition home or self-care (01) ==
LOC: M ED 19:29
DX: G40.009 Localization-related (focal) (partial) idiopathic epilepsy and epileptic syndromes with seizures of localized onset, not intractable, without status epilepticus (principal); E11.9 Type 2 diabetes mellitus without complications; I10 Essential (primary) hypertension; Z88.8 Allergy status to other drugs, medicaments and biological substances; Z91.048 Other nonmedicinal substance allergy status; Z88.7 Allergy status to serum and vaccine; Z79.899 Other long term (current) drug therapy; Z79.84 Long term (current) use of oral hypoglycemic drugs
CPT/HCPCS: 70450; 71046; 80048; 80076; 82550; 82553; 84443; 84484; 85025; 93005; 93041; 94760; 96365; 96375; 99285; G0480; J1953; J2060

== ENCOUNTER → 2020-01-29 | Outpatient (CLI) | payer MEDICARE, OTHER ==
--- NOTE | 2020-02-02 09:08 | REP ---
RIGHT SHOULDER SERIES: 3-VIEWS HISTORY: Injury in a fall. COMPARISON STUDY: 05/16/2017. FINDINGS: The right glenohumeral and acromioclavicular joints are normally aligned. There is mild lateral spurring of the acromion process. The prior study showed a soft tissue calcification, which is no longer apparent. IMPRESSION: No acute bony abnormality. MTDD
--- NOTE | 2020-02-02 09:09 | REP ---
RIGHT CLAVICLE SERIES: 2-VIEWS HISTORY: Contusion. COMPARISON: Chest x-ray 12/29/2019. FINDINGS: AP and two angled views of the right clavicle demonstrate no evidence of fracture or subluxation. The acromioclavicular and glenohumeral joints are normally aligned. There is acromion process spurring. IMPRESSION: No acute bony abnormality. MTDD
--- NOTE | 2020-02-02 09:10 | REP ---
RIGHT FOREARM: 2-VIEWS HISTORY: Injury in a fall. FINDINGS: AP and lateral views of the right forearm show soft tissue swelling adjacent to the proximal ulna. A metallic bracelet overlies the carpus. No fracture or subluxation is seen. IMPRESSION: No fracture noted. MTDD
--- NOTE | 2020-02-02 09:11 | REP ---
RIGHT ELBOW SERIES: 4-VIEWS HISTORY: Injury in a fall. FINDINGS: Four views of the right elbow demonstrate mild osteoarthritic spurring of the proximal ulna and the proximal radius consistent with mild elbow osteoarthritis. No joint effusion is seen. No fracture is noted. There is minimal lateral epicondylar spurring. IMPRESSION: Osteoarthritic and lateral epicondylar spurring. No fracture or joint effusion seen. MTDD
== END ==
LOC: M WUC 09:16
PROVIDERS: ATTEND Physician Assistant
DX: S40.011A Contusion of right shoulder, initial encounter (principal); S50.01XA Contusion of right elbow, initial encounter; X58.XXXA Exposure to other specified factors, initial encounter; Y92.89 Other specified places as the place of occurrence of the external cause; M19.011 Primary osteoarthritis, right shoulder; M25.711 Osteophyte, right shoulder

== ENCOUNTER → 2020-03-02 | Outpatient (CLI) | payer MEDICARE, OTHER | LOC: M LABSMTC 10:07 | PROVIDERS: ATTEND Physician Assistant | DX: R56.9 Unspecified convulsions (principal) ==

== ENCOUNTER → 2020-03-31 | Outpatient (CLI) | payer MEDICARE, OTHER ==
[~2020-03-31] MED LIST changes: +LABE100T4 PO; -LABE10TAB PO
--- NOTE | 2020-03-31 13:23 | REP ---
INDICATION: R79.89 ELEV LFT'S. COMPARISON: Abdomen and pelvis CT dated 12/02/2008. TECHNIQUE: Multiple ultrasonographic images of the abdominal right upper quadrant. FINDINGS: There is a cholecystectomy. This is unchanged. There is no intrahepatic or extrahepatic biliary duct dilatation. The common biliary duct measures 3.4 mm in diameter The hepatic parenchyma is diffusely hyperechoic suggestive of hepato steatosis. This was also present on the comparison CT. There are no focal hepatic masses or cysts. There is no intrahepatic or extrahepatic biliary duct dilatation. The common biliary duct measures 3.4 mm in diameter. The visualized areas of the pancreatic body and head are unremarkable. The tail is obscured by bowel gas. The right kidney is normal size measuring 11.7 x 4.7 x 3.9 cm. There is no large renal calculus or hydronephrosis. There is no right renal solid or cystic mass. The study is technically difficult because of patient body habitus and bowel gas. IMPRESSION: Hepato steatosis. No biliary duct dilatation cholecystectomy. Pancreatic tail is obscured. <Electronically signed by Tony Velarde > 03/31/20 1251
== END ==
LOC: M WHC 08:35
PROVIDERS: ATTEND Family Medicine
DX: R94.5 Abnormal results of liver function studies (principal)

== ENCOUNTER → 2020-05-07 | Outpatient (REF) | payer MEDICARE, OTHER | LOC: M LAB REF 16:02 | PROVIDERS: ATTEND Nurse Practitioner Family | DX: R30.0 Dysuria (principal) ==

== ENCOUNTER 2020-05-29 03:16 | Emergency (ER) | payer MEDICARE, OTHER ==
[~2020-05-29] VITALS: Ht 165.1 cm; Wt 60.0 kg
[2020-05-29] MEDS ORDERED: GI COCKTAIL 50ML BTL(HYOSCYAMINE/MAALOX/LIDOCAINE VISCOUS)(1:3:1) PO ONE (04:00)
[2020-05-29 04:14] LABS: BASO % 0.6 % (0.0-1.0); EOS # 0.2 10^3/uL (0.0-0.5); EOS % 2.8 % (0.0-3.0); HEMATOCRIT 41.9 % (36.0-47.0); HEMOGLOBIN 13.5 g/dl (12.0-15.5); LYMPH # 1.3 10^3/uL (1.5-5.0); LYMPH % 18.2 % (24.0-44.0); MEAN CORPUSCULAR HEMOGLOBIN 29.3 pg (27.0-33.0); MEAN CORPUSCULAR HGB CONC 32.2 g/dl (32.0-36.5); MEAN CORPUSCULAR VOLUME 90.9 fl (80.0-96.0); MONO % 13.4 % (0.0-5.0); NEUTROPHILS # 4.6 10^3/uL (1.5-8.5); NEUTROPHILS % 64.2 % (36.0-66.0); PLATELET COUNT, AUTOMATED 236 10^3/uL (150-450); RED BLOOD COUNT 4.61 10^6/uL (4.00-5.40)
[2020-05-29] MEDS ORDERED: PANTOPRAZOLE 40MG VIAL (C9113 PER 1) IV ONE (04:15)
[2020-05-29 04:16] LABS: WHITE BLOOD COUNT 7.1 10^3/uL (4.0-10.0)
--- NOTE | 2020-05-29 04:36 | REPVR ---
PROCEDURE INFORMATION: Exam: XR Chest, 1 View Exam date and time: 05/29/2020 4:17 AM Age: 70 years old Clinical indication: Chest pain; Type not specified TECHNIQUE: Imaging protocol: XR of the chest Views: 1 view. COMPARISON: CR Chest, 2 view PA, Lat 12/29/2019 8:51 PM FINDINGS: Lungs: There are no interval infiltrates. Pleural spaces: Unremarkable. No pleural effusion. No pneumothorax. Heart/Mediastinum: The heart and mediastinum are unchanged. Bones/joints: Unremarkable. Soft tissues: There are moderately generous overlying soft tissues. IMPRESSION: Stable negative chest since 12/29/2019. Electronically signed by: Eleno Elizondo On 05/29/2020 04:35:44 AM
[2020-05-29 05:00] LABS: ALT/SGPT 76 U/L (12-78); BILIRUBIN,DIRECT 0.1 MG/DL (0.0-0.2); BILIRUBIN,TOTAL 0.4 MG/DL (0.2-1.0); BLOOD UREA NITROGEN 16 MG/DL (7-18); CALCIUM LEVEL 9.5 MG/DL (8.8-10.2); CARBON DIOXIDE LEVEL 21 MEQ/L (21-32); CHLORIDE LEVEL 106 MEQ/L (98-107); CK-MB VALUE MASS 1.2 NG/ML (<3.6); CPK CREATINE PHOSPHOKINASE 140 U/L (26-192); CREATININE FOR GFR 0.91 MG/DL (0.55-1.30); GLOMERULAR FILTRATION RATE > 60.0 (>39); GLUCOSE, FASTING 171 MG/DL (70-100); LIPASE 295 U/L (73-393); MB/CK RELATIVE INDEX 0.86 (< OR =4); POTASSIUM SERUM 4.1 MEQ/L (3.5-5.1); SODIUM LEVEL 139 MEQ/L (136-145); TOTAL PROTEIN 7.3 GM/DL (6.4-8.2); TROPONIN I < 0.02 NG/ML (< 0.10)
[2020-05-29] MEDS ORDERED: OMEP-218 PO (06:30)
--- NOTE | 2020-05-29 06:33 | ECGEPIP ---
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
[2020-05-29 06:40] VITALS: BP 143/64
== END 2020-05-29 06:45 | disposition home or self-care (01) ==
LOC: M ED 03:16
DX: K21.9 Gastro-esophageal reflux disease without esophagitis (principal); I10 Essential (primary) hypertension; I25.2 Old myocardial infarction; Z79.899 Other long term (current) drug therapy; Z79.84 Long term (current) use of oral hypoglycemic drugs; Z79.01 Long term (current) use of anticoagulants; Z88.1 Allergy status to other antibiotic agents; Z88.7 Allergy status to serum and vaccine; Z88.8 Allergy status to other drugs, medicaments and biological substances; Z91.018 Allergy to other foods; Z91.048 Other nonmedicinal substance allergy status
CPT/HCPCS: 71045; 80048; 80076; 82550; 82553; 83690; 84484; 85025; 93005; 93041; 94760; 96374; 99285; C9113

== ENCOUNTER → 2020-05-30 | Outpatient (CLI) | payer MEDICARE, OTHER ==
[~2020-05-30] MED LIST changes: +OMEP-218 PO
--- NOTE | 2020-05-30 15:04 | DEXAMM ---
INDICATION: M81.0 AGE REL OSTEOPOROSIS W/O FX. COMPARISON: None. TECHNIQUE: Bone density was measured using dual-energy x-ray absorptionmetry (DEXA). FINDINGS: AP SPINE L1-L4 BMD 1.235 g/cm2 Young Adult T-Score 0.3 Age Matched Z-Score 2.0. LT FEMUR, TOTAL BMD 1.057 g/cm2 Young Adult T-Score 0.4 Age Matched Z-Score 2.0. LT NECK BMD 0.858 g/cm2 Young Adult T-Score -1.3 Age Matched Z-Score 0.5. RT FEMUR, TOTAL BMD 1.055 g/cm2 Young Adult T-Score 0.4 Age Matched Z-Score 1.9. RT NECK BMD 0.968 g/cm2 Young Adult T-Score -0.5 Age Matched Z-Score 1.3. IMPRESSION: There is normal bone density of the spine. There is low bone density of the left hip. There is normal bone density of the right hip. FOLLOW-UP: Recommendation for the next bone density exam: 2 years. <Electronically signed by Devante Espinal > 05/30/20 [id number]
== END ==
LOC: M WHC 12:43
PROVIDERS: ATTEND Family Medicine
DX: M81.0 Age-related osteoporosis without current pathological fracture (principal)

== ENCOUNTER → 2020-05-31 | Outpatient (REF) | payer MEDICARE, OTHER | LOC: M SFHCPLAZ 17:17 | PROVIDERS: ATTEND Family Medicine | DX: L57.0 Actinic keratosis (principal) | CPT/HCPCS: 11102; 88305; G0463 ==

== ENCOUNTER → 2020-06-02 | Outpatient (REF) | payer MEDICARE, OTHER | LOC: M WUC 11:06 | PROVIDERS: ATTEND Physician Assistant | DX: R30.0 Dysuria (principal) ==

== ENCOUNTER 2020-08-18 18:01 | Emergency (ER) | payer MEDICARE, OTHER ==
[~2020-08-18] VITALS: Ht 165.1 cm; Wt 88.8 kg
[~2020-08-18 18:01] MED LIST changes: -SPIR-10 PO
[2020-08-18] MEDS ORDERED: LABE100T4 PO (19:26)
--- NOTE | 2020-08-18 19:56 | REP ---
INDICATION: Abdominal Pain COMPARISON: 05/29/2020 and 12/29/2019. TECHNIQUE: PA/Lateral FINDINGS: Lungs: Clear, no infiltrate. Heart: Normal in size. Mediastinum: Mediastinal silhouette unremarkable. There is mild calcification of the thoracic aorta. Pleural angles: Unremarkable.. Bones and soft tissues: There are mild degenerative changes of the spine. IMPRESSION: No acute pulmonary disease. <Electronically signed by Tony Xiao > 08/18/201952
[2020-08-18 20:01] LABS: BASO # 0.1 10^3/uL (0.0-0.2); BASO % 0.6 % (0.0-1.0); EOS # 0.2 10^3/uL (0.0-0.5); EOS % 2.7 % (0.0-3.0); HEMATOCRIT 44.7 % (36.0-47.0); HEMOGLOBIN 14.7 g/dl (12.0-15.5); LYMPH # 1.4 10^3/uL (1.5-5.0); LYMPH % 18.6 % (24.0-44.0); MEAN CORPUSCULAR HEMOGLOBIN 29.4 pg (27.0-33.0); MEAN CORPUSCULAR HGB CONC 32.9 g/dl (32.0-36.5); MEAN CORPUSCULAR VOLUME 89.4 fl (80.0-96.0); MONO # 0.8 10^3/uL (0.0-0.8); MONO % 9.9 % (2.0-8.0); NEUTROPHILS # 5.2 10^3/uL (1.5-8.5); NEUTROPHILS % 67.7 % (36.0-66.0); PLATELET COUNT, AUTOMATED 288 10^3/uL (150-450); WHITE BLOOD COUNT 7.8 10^3/uL (4.0-10.0)
[2020-08-18 20:11] LABS: INR 0.86; PROTHROMBIN TIME 11.9 SECONDS (12.5-14.3)
[2020-08-18 20:12] LABS: PARTIAL THROMBOPLASTIN TIME 27.6 SECONDS (24.2-38.5)
[2020-08-18 20:37] LABS: ALBUMIN 4.4 GM/DL (3.2-5.2); ALT/SGPT 88 U/L (12-78); BILIRUBIN,DIRECT 0.2 MG/DL (0.0-0.2); BILIRUBIN,TOTAL 0.6 MG/DL (0.2-1.0); BLOOD UREA NITROGEN 15 MG/DL (7-18); CALCIUM LEVEL 10.4 MG/DL (8.8-10.2); CARBON DIOXIDE LEVEL 24 MEQ/L (21-32); CHLORIDE LEVEL 106 MEQ/L (98-107); CK-MB VALUE MASS < 1.0 NG/ML (<3.6); CPK CREATINE PHOSPHOKINASE 133 U/L (26-192); CREATININE FOR GFR 0.85 MG/DL (0.55-1.30); GLOMERULAR FILTRATION RATE > 60.0 (>39); GLUCOSE, FASTING 119 MG/DL (70-100); LIPASE 185 U/L (73-393); MB/CK RELATIVE INDEX 0.75 (< OR =4); NT-PRO BNP 92 PG/ML (<125); POTASSIUM SERUM 4.3 MEQ/L (3.5-5.1); SODIUM LEVEL 139 MEQ/L (136-145); TOTAL PROTEIN 8.2 GM/DL (6.4-8.2); TROPONIN I < 0.02 NG/ML (< 0.10)
[2020-08-18 20:40] LABS: FREE T4 0.98 NG/DL (0.76-1.46); THYROID STIMULATING HORMONE 4.37 uIU/ML (0.358-3.740)
[2020-08-18] MEDS ORDERED: CARVedilol 6.25 MG TAB PO ONE (21:40)
[2020-08-18 22:45] VITALS: BP 150/68
[2020-08-18] MEDS ORDERED: CHLO125TA PO (22:46)
[2020-08-18] MEDS ORDERED: SPIR-10 PO (22:46)
--- NOTE | 2020-08-19 09:53 | ECGEPIP ---
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
== END 2020-08-18 23:09 | disposition home or self-care (01) ==
LOC: M ED 18:01
DX: I10 Essential (primary) hypertension (principal); I25.2 Old myocardial infarction; F84.0 Autistic disorder; M85.80 Other specified disorders of bone density and structure, unspecified site; R25.1 Tremor, unspecified; E78.5 Hyperlipidemia, unspecified; G47.30 Sleep apnea, unspecified; E11.9 Type 2 diabetes mellitus without complications; Z88.6 Allergy status to analgesic agent; Z88.8 Allergy status to other drugs, medicaments and biological substances; Z79.899 Other long term (current) drug therapy
CPT/HCPCS: 36415; 71046; 80048; 80076; 81001; 82550; 82553; 82607; 83690; 83735; 83880; 84439; 84443; 84484; 85025; 85610; 85730; 87086; 93005; 93041; 94760; 99285; G0463

== ENCOUNTER → 2020-08-18 | Outpatient (REF) | payer MEDICARE, OTHER ==
[~2020-08-18] MED LIST changes: +SPIR-10 PO
[2020-08-18 15:28] LABS: APPEARANCE, URINE HAZY (CLEAR); BACTERIA, URINE AUTO 1+ (NEGATIVE); BILIRUBIN, URINE AUTO NEGATIVE (NEGATIVE); BLOOD, URINE BLOOD NEGATIVE (NEGATIVE); COLOR, URINE YELLOW (YELLOW); GLUCOSE, URINE (UA) AUTO 1+ mg/dL (NEGATIVE); KETONE, URINE AUTO TRACE mg/dL (NEGATIVE); LEUKOCYTE ESTERASE, URINE AUTO TRACE (NEGATIVE); MUCUS, URINE SMALL (NEGATIVE); NITRITE, URINE AUTO NEGATIVE (NEGATIVE); PROTEIN, URINE AUTO NEGATIVE (NEGATIVE); RBC, URINE AUTO 1 /HPF (0-3); SPECIFIC GRAVITY URINE AUTO 1.018 (1.002-1.035); SQUAMOUS EPITHELIAL CELL UR AU 4 /HPF (0-6); UROBILINOGEN, URINE AUTO 0.2 mg/dL (0.0-2.0); WBC, URINE AUTO 4 /HPF (0-3)
[2020-08-18 16:07] LABS: BLOOD UREA NITROGEN 13 MG/DL (7-18); CALCIUM LEVEL 9.5 MG/DL (8.8-10.2); CARBON DIOXIDE LEVEL 29 MEQ/L (21-32); CHLORIDE LEVEL 106 MEQ/L (98-107); CREATININE FOR GFR 0.92 MG/DL (0.55-1.30); GLOMERULAR FILTRATION RATE > 60.0 (>39); GLUCOSE, FASTING 241 MG/DL (70-100); POTASSIUM SERUM 4.1 MEQ/L (3.5-5.1); SODIUM LEVEL 139 MEQ/L (136-145); VITAMIN B12 LEVEL 288 PG/ML (247-911)
== END ==
LOC: M SFHCPLAZ 13:30
PROVIDERS: ATTEND Family Medicine
DX: R25.2 Cramp and spasm (principal); G62.9 Polyneuropathy, unspecified; R35.0 Frequency of micturition

== ENCOUNTER → 2020-09-11 | Outpatient (CLI) | payer MEDICARE, OTHER ==
[~2020-09-11] MED LIST changes: +SPIR-10 PO
== END ==
LOC: M LABSMTC 08:07
PROVIDERS: ATTEND Anesthesiology
DX: Z20.828 Contact with and (suspected) exposure to other viral communicable diseases (principal); Z11.59 Encounter for screening for other viral diseases

== ENCOUNTER 2020-09-16 07:40 | Day surgery (SDC) | payer MEDICARE, OTHER ==
[~2020-09-16] VITALS: Ht 165.1 cm; Wt 88.0 kg
[~2020-09-16 07:40] MED LIST changes: +NS 1,000 ML IV ONE
[2020-09-16] MEDS ORDERED: LIDOCAINE 2% 100MG/5ML SDV (FOR ANES.) As Ordered ONE (08:03)
[2020-09-16] MEDS ORDERED: propofoL 200 MG/20 ML VIAL As Ordered ONE (08:03)
[2020-09-16] MEDS ORDERED: fentaNYL 100 MCG/2 ML INJECTION (J3010) As Ordered ONE (08:04)
--- NOTE | 2020-09-16 10:05 | ROOR ---
Patient Name: Amie Correa Procedure Date: 09/16/2020 9:45 AM Date of : 1950 Age: 70 Room: [facility] Gender: Female Note Status: Finalized Procedure: Upper GI endoscopy Indications: Heartburn Providers: Raphael Acevedo MD Referring MD: Sheila Mojica MD Requesting Provider: Medicines: Monitored Anesthesia Care Complications: No immediate complications. Procedure: Pre-Anesthesia Assessment: - The heart rate, respiratory rate, oxygen saturations, blood pressure, adequacy of pulmonary ventilation, and response to care were monitored throughout the procedure. The Endoscope was introduced through the mouth, and advanced to the second part of duodenum. The upper GI endoscopy was accomplished without difficulty. The patient tolerated the procedure well. Findings: The Z-line was variable and was found 39 cm from the incisors. This was biopsied with a cold forceps for histology. Small Hiatal Hernia. The exam was otherwise without abnormality. Impression: - Z-line variable, 39 cm from the incisors. Biopsied. - Small Hiatal Hernia. - The examination was otherwise normal. Recommendation: - Continue present medications. - Follow an antireflux regimen. Procedure Code(s): --- Professional --- 25535, Esophagogastroduodenoscopy, flexible, transoral; with biopsy, single or multiple Diagnosis Code(s): --- Professional --- R12, Heartburn K22.8, Other specified diseases of esophagus CPT copyright 2019 [employer]. All rights reserved. The codes documented in this report are preliminary and upon cuff cutter review may be revised to meet current compliance requirements. Raphael Acevedo MD Raphael Acevedo MD 09/16/2020 10:04:59 AM Electronically signed by Raphael Acevedo MD Number of Addenda: 0 Note Initiated On: 09/16/2020 9:45 AM Estimated Blood Loss: Estimated blood loss: none.
[2020-09-16 10:40] VITALS: BP 125/59
== END 2020-09-16 10:42 | disposition home or self-care (01) ==
LOC: M OPP 07:40
PROVIDERS: ATTEND Internal Medicine Gastroenterology
DX: K22.8 Other specified diseases of esophagus (principal); K44.9 Diaphragmatic hernia without obstruction or gangrene; K21.9 Gastro-esophageal reflux disease without esophagitis; R12 Heartburn; Z79.899 Other long term (current) drug therapy; Z88.7 Allergy status to serum and vaccine; Z88.8 Allergy status to other drugs, medicaments and biological substances; Z91.040 Latex allergy status; Z91.018 Allergy to other foods; Z91.048 Other nonmedicinal substance allergy status; Z85.3 Personal history of malignant neoplasm of breast; Z85.43 Personal history of malignant neoplasm of ovary
CPT/HCPCS: 43239; 88305; J3010

== ENCOUNTER → 2020-09-23 | Outpatient (REF) | payer MEDICARE, OTHER ==
[~2020-09-23] MED LIST changes: -NS 1,000 ML IV ONE
== END ==
LOC: M WUC 20:10
PROVIDERS: ATTEND Physician Assistant
DX: R35.0 Frequency of micturition (principal)

== ENCOUNTER 2020-10-04 18:13 | Observation (INO) | payer MEDICARE, OTHER ==
[~2020-10-04] VITALS: Ht 165.1 cm; Wt 87.1 kg
[2020-10-04] MEDS ORDERED: LABETALOL 100MG/20ML VIAL IV STA (20:21)
[2020-10-04 20:33] LABS: BASO % 0.4 % (0.0-1.0); EOS # 0.2 10^3/uL (0.0-0.5); EOS % 2.1 % (0.0-3.0); HEMATOCRIT 40.1 % (36.0-47.0); HEMOGLOBIN 13.1 g/dl (12.0-15.5); LYMPH # 1.3 10^3/uL (1.5-5.0); LYMPH % 18.3 % (24.0-44.0); MEAN CORPUSCULAR HEMOGLOBIN 29.2 pg (27.0-33.0); MEAN CORPUSCULAR HGB CONC 32.7 g/dl (32.0-36.5); MEAN CORPUSCULAR VOLUME 89.5 fl (80.0-96.0); MONO # 0.8 10^3/uL (0.0-0.8); MONO % 11.2 % (2.0-8.0); NEUTROPHILS # 4.9 10^3/uL (1.5-8.5); PLATELET COUNT, AUTOMATED 270 10^3/uL (150-450); RED BLOOD COUNT 4.48 10^6/uL (4.00-5.40); WHITE BLOOD COUNT 7.3 10^3/uL (4.0-10.0)
[2020-10-04 20:48] LABS: ALBUMIN 3.7 GM/DL (3.2-5.2); ALT/SGPT 56 U/L (12-78); BILIRUBIN,DIRECT 0.1 MG/DL (0.0-0.2); BILIRUBIN,TOTAL 0.7 MG/DL (0.2-1.0); BLOOD UREA NITROGEN 14 MG/DL (7-18); CALCIUM LEVEL 9.3 MG/DL (8.8-10.2); CARBON DIOXIDE LEVEL 25 MEQ/L (21-32); CHLORIDE LEVEL 108 MEQ/L (98-107); CK-MB VALUE MASS < 1.0 NG/ML (<3.6); CPK CREATINE PHOSPHOKINASE 155 U/L (26-192); CREATININE FOR GFR 0.78 MG/DL (0.55-1.30); FREE T4 0.95 NG/DL (0.76-1.46); GLOMERULAR FILTRATION RATE > 60.0 (>39); GLUCOSE, FASTING 109 MG/DL (70-100); MB/CK RELATIVE INDEX 0.65 (< OR =4); POTASSIUM SERUM 5.3 MEQ/L (3.5-5.1); SODIUM LEVEL 139 MEQ/L (136-145); TOTAL PROTEIN 7.2 GM/DL (6.4-8.2); TROPONIN I < 0.02 NG/ML (< 0.10)
[2020-10-04] MEDS ORDERED: ATORVASTATIN 20 MG TAB PO SCH (21:00)
[2020-10-04] MEDS ORDERED: TELMISARTAN 20 MG TAB PO SCH (21:00)
--- NOTE | 2020-10-04 21:18 | ECGEPIP ---
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
--- NOTE | 2020-10-04 21:38 | REPVR ---
PROCEDURE INFORMATION: Exam: CT Head Without Contrast Exam date and time: 10/04/2020 8:28 PM Age: 70 years old Clinical indication: Other: Hypertensive shaking; Additional info: Hypertension shaking TECHNIQUE: Imaging protocol: Computed tomography of the head without contrast. Radiation optimization: All CT scans at this facility use at least one of these dose optimization techniques: automated exposure control; mA and/or kV adjustment per patient size (includes targeted exams where dose is matched to clinical indication); or iterative reconstruction. COMPARISON: CT Head without contrast 12/29/2019 8:05 PM FINDINGS: Brain: There is no acute cortical infarction, intracranial hemorrhage or mass. Cerebral ventricles: No ventriculomegaly. Paranasal sinuses: Visualized sinuses are unremarkable. No fluid levels. Mastoid air cells: Visualized mastoid air cells are well aerated. Vasculature: Atherosclerosis. Bones/joints: Unremarkable. No acute fracture. Soft tissues: Unremarkable. IMPRESSION: No acute intracranial findings. Electronically signed by: Filomena Reed On 10/04/2020 21:37:57 PM
--- NOTE | 2020-10-04 21:39 | REPVR ---
PROCEDURE INFORMATION: Exam: XR Chest Exam date and time: 10/04/2020 8:43 PM Age: 70 years old Clinical indication: Other: Hypertention; Additional info: Hypertension TECHNIQUE: Imaging protocol: XR of the chest. Views: 1 view. COMPARISON: CR PORTABLE CHEST X-RAY 05/29/2020 4:12 AM FINDINGS: Lungs: Lungs are mildly hyperinflated and clear. Pleural spaces: No pleural effusion or pneumothorax. Heart/Mediastinum: Mild cardiomegaly which is a stable finding. Bones/joints: No significant skeletal findings. IMPRESSION: No acute findings. Electronically signed by: Filomena Reed On 10/04/2020 21:38:58 PM
[2020-10-04 21:57] LABS: RSV AMPLIFICATION NEGATIVE (NEGATIVE)
[2020-10-04] MEDS ORDERED: OMEP-218 PO (22:19)
[2020-10-04] MEDS ORDERED: SOD POLYSTYRENE SULFONATE SUSP 15 GM/60 ML UD PO ONE (22:30)
[2020-10-04] MEDS ORDERED: hydrALAZINE 20MG/ML 1ML VIAL (J0360 PER 20MG) IV ONE (23:00)
[2020-10-04] MEDS ORDERED: DEXTROSE 50% 50 ML SYRINGE IV PRN (23:15)
[2020-10-04] MEDS ORDERED: GLUCAGON INJ 1MG VIAL SC PRN (23:15)
[2020-10-04] MEDS ORDERED: LABETALOL 100MG/20ML VIAL IV PRN (23:15)
[2020-10-04] MEDS ORDERED: GLUCOSE 4GM CHEW TABLET PO PRN (23:15)
--- NOTE | 2020-10-04 23:33 | HPEPDOC ---
[facility] Medical History & Physical Date of Admission Oct 04, 2020 Date of Service: Oct 04, 2020 Primary Care Physician: RACHELLE GARIBAY MD Attending Physician: ROSEMARIE ARRIAZA History and Physical CHIEF COMPLAINT: Elevated blood pressure HISTORY OF PRESENT ILLNESS: . Mrs. Correa is a 70-year-old female who presented to the ER this evening with complaints of persistent elevation of blood pressure. According to the patient and her . She has a history of labile blood pressure. She was seen by primary care today and started on a continuous blood pressure monitor because they "wanted to see what my blood pressure did, on an average day". She states that sometimes her blood pressure will drop to 80 systolic. Her says that it drops to 40 at times. It was not clear whether he met systolic or d iastolic. But the patient and her are very anxious about the readings that they have been noticing today. They have kept a running record of her blood pressures every 5 minutes since the blood pressure cuff was applied this afternoon. They noticed extremely high readings after they returned home and the patient took her when necessary labetalol as directed. They did not notice any improvement in blood pressure and so returned to primary care. They were told to continue to monitor and returned home. Since they continue to see elevated readings, they decided not to eat dinner and to instead proceed directly to the ER. On initial evaluation, her blood pressure was 185/80, but increased to 232/98. She was given a dose of labetalol with blood pressure improving back to 185/82. Despite the dose of labetalol. Her blood pressure continued to increase with maximum breathing noted at 244/101. The patient and her were increasingly anxious throughout the evening and her very worried about making sure that she gets her Neurontin. She has a history of sensory integration disorder and states that she reacts differently to all kinds of medications. She says she is unable to take the generic gabapentin must have name brand Neurontin. She is very worried about her being able to return to the hospital with her name brand Neurontin and making sure that she is able to take it tonight and in the morning. Her is also very concerned about her possibly receiving hydralazine. He is insistent that somebody needs to stand by her bedside in case she has a reaction. The patient is also concerned about decreased vision and being able to make it back and forth to the bathroom. She is strongly encouraged and instructed on use of the call light, and the need to stay in bed until she has the assistance of staff to ambulate to the bathroom. Patient has a history of essential tremors and had previously been diagnosed with a seizure disorder. She was seen by neurology at some point in the last year and it was determined that she does not have a seizure disorder but instead has essential tremors. She complained of some "shaking and chattering teeth" with her high blood pressure. She says she has experienced this in the past. She does not lose consciousness when this occurs. Patient was also noted to have an elevated potassium of 5.3. She was given half dose of Kayexalate in the ER. General mild elevation of alkaline phosphatase, but labs were otherwise unremarkable. Chest x-ray was negative. CT of the head was also negative. PAST MEDICAL HISTORY: 1. Sensory integration disorder. 2. Macular degeneration with left eye blindness. 3. Diabetes type 2, [id number]. 4. Hyperlipidemia. 5. Coronary artery disease. 6. Uterine cancer. 7. Breast cancer 3 occurrences. 8. Seizure disorder versus essential tremors. 9. Carotid artery disease. 10. [place] hallucination in the left eye. 11. Gastroesophageal reflux disease. 12. Pseudogout. 13. Obstructive sleep apnea, noncompliant with CPAP. PAST SURGICAL HISTORY: 1. Bilateral mastectomy. 2. Hysterectomy. 3. Cholecystectomy. 4. Tonsillectomy.. SOCIAL HISTORY: Tobacco use: None ETOH:. None Illicit drug use:. Denies Patient lives with: Her FAMILY HISTORY: . Patient's mother had a history of multiple sclerosis. Her father had a history of coronary artery disease and hypertension. She also has a son with multiple sclerosis. REVIEW OF SYSTEMS: Complete 10 point review systems is negative except as noted above PHYSICAL EXAMINATION: Patient is seen in the ER, lying on the stretcher.. She is alert and oriented x 3. HEENT is WNL except for decreased visual acuity, worse on the left per patient report. Neck is supple. Lungs are clear to auscultation. Heart regular rate and rhythm without murmur. Abdomen is soft, non-tender to palpation with bowel sounds positive. Extremities with good ROM and strength equal bilaterally. No tremors or shaking noted. No lower extremity edema. Pedal pulses are positive. Skin is warm and dry with no obvious rash or lesion. Neuro: grossly intact. Psych:. Patient is extremely agitated and anxious and resists any attempts to soothe or calm. ASSESSMENT AND PLAN: 1. Hypertensive emergency. Will give the patient 1 dose of hydralazine and monitor closely. Continue to check with routine every hour vital signs. Continue home Norvasc, telmisartan and carvedilol. Will add when necessary labetalol. We'll continue to adjust medications as needed based on trends. 2. Hyperkalemia. Patient given 15 g Kayexalate in the ER. Check potassium in the morning. 3. Diabetes type 2, [id number]-jrctztmyy. Will hold metformin while hospitalized. Monitor blood glucose before meals and at bedtime and add sliding scale for use as needed. Continue on consistent carbohydrate diet. Will check HbA1c in the morning. 4. Hyperlipidemia. Continue statin. 5. Sensory integration disorder. Continue Neurontin. Patient to use home medications and continue at home dose. 6. Coronary artery disease. Continue beta esha, statin and monitor on telemetry. 7. Macular degeneration with left eye blindness. Continue supportive care. 8. DVT prophylaxis. Will add Lovenox. CODE STATUS: CODE STATUS was discussed with the patient desires to be considered full code. She states her , sister or son would act as her surrogates if she were unable to make her own decisions. Patient is considered high risk for further deterioration including, worsening hypertensive emergency or possible stroke. She is admitted for close observation and further evaluation and expected to remain at least one midnight. Vital Signs Vital Signs Date Time Temp Pulse Resp B/P (MAP) Pulse Ox O2 Delivery O2 Flow Rate FiO2 10/04/20 23:01 81 97 10/04/20 23:00 213/93 (133) 10/04/20 18:14 98.0 20 Room Air Laboratory Data Labs 24H Laboratory Tests 2 10/04/20 19:54: Immature Granulocyte % (Auto) 1.0, Neutrophils (%) (Auto) 67.0H, Lymphocytes (%) (Auto) 18.3L, Monocytes (%) (Auto) 11.2H, Eosinophils (%) (Auto) 2.1, Basophils (%) (Auto) 0.4, Neutrophils # (Auto) 4.9, Lymphocytes # (Auto) 1.3L, Monocytes # (Auto) 0.8, Eosinophils # (Auto) 0.2, Basophils # (Auto) 0.0, Nucleated Red Blood Cells % (auto) 0.0, Anion Gap 6L, Glomerular Filtration Rate > 60.0, Calcium Level 9.3, Total Bilirubin 0.7, Direct Bilirubin 0.1, Aspartate Amino Transf (AST/SGOT) 35, Alanine Aminotransferase (ALT/SGPT) 56, Alkaline Phosphatase 154H, Total Creatine Kinase 155, Creatine Kinase MB < 1.0, Creatine Kinase MB Relative Index 0.65, Troponin I < 0.02, Total Protein 7.2, Albumin 3.7, Albumin/Globulin Ratio 1.1L, Thyroid Stimulating Hormone (TSH) 3.110, Free Thyroxine 0.95 10/04/20 20:14: Bedside Glucose (Misc Panel) 106 10/04/20 20:43: Coronavirus (COVID-19)(PCR) NEGATIVE, Influenza Type A (RT-PCR) NEGATIVE, Influenza Type B (RT-PCR) NEGATIVE, Respiratory Syncytial Virus (PCR) NEGATIVE CBC/BMP Laboratory Tests 10/04/20 19:54 Home Medications Scheduled Amlodipine Besylate (Amlodipine Besylate) 10 Mg Tab, 10 MG PO DAILY Atorvastatin Calcium (Atorvastatin Calcium) 40 Mg Tab, 40 MG PO QHS Carvedilol (Carvedilol) 6.25 Mg Tab, 6.25 MG PO BID 1200, 1800 Cholecalciferol (Vitamin D3) (Vitamin D3) 1,000 Unit Tablet, 1,000 UNITS PO VIRAJ LY Clopidogrel Bisulfate (Plavix) 75 Mg Tablet, 75 MG PO QPM TAKES AT 1700 Gabapentin (Neurontin) 400 Mg Capsule, 400 MG PO QID TAKES BRAND NAME NEURONTIN AT HOME Metformin HCl (Metformin HCl) 500 Mg Tablet, 500 MG PO DAILY Metformin HCl (Metformin HCl) 500 Mg Tablet, 1,000 MG PO QPM TAKES AROUND DINNERTIME Multivitamins (Thera M Plus Tablet) 1 Each Tablet, 1 TAB PO DAILY Omeprazole (Omeprazole) 20 Mg Capsule.dr, 20 MG PO DAILY Telmisartan (Telmisartan) 80 Mg Tablet, 80 MG PO QHS Ubidecarenone/Vit E Acet (Co Q-10 100 mg Softgel) 100 Mg Cap, 100 MG PO DAILY Vit C/E/Zn/Coppr/Lutein/Zeaxan (Preservision Areds 2 Softgel) 1 Each Capsule, 1 EACH PO BID Scheduled PRN Labetalol HCl (Labetalol HCl) 100 Mg Tablet, 100 MG PO DAILY PRN for BP>150 Nitroglycerin (Nitrostat) 0.4 Mg Tab.subl, 0.4 MG SL NITRO PRN for CHEST PAIN Allergies Coded Allergies: ibuprofen (Verified Allergy, Severe, DOUBLE VISION,EFECTS BP,BREATHING, 12/29/19) latex (Verified Allergy, Intermediate, Hives / Rash, 12/29/19) levetiracetam (Verified Allergy, Intermediate, passed out, 05/29/20) tetanus toxoid, adsorbed (Verified Allergy, Intermediate, Fever / Swelling, 12/29/19) METALS (Verified Allergy, Unknown, METALLIC DYES, 12/29/19) aspirin (Verified Adverse Reaction, Severe, Hypertension, Seizures, 12/29/19) Wheat (Verified Adverse Reaction, Mild, DIZZY, 12/29/19) A-FIB/CHADSVASC A-FIB History Current/History of A-Fib/PAF?: No ROSEMARIE ARRIAZA Oct 04, 2020 23:33
[2020-10-04] MEDS ORDERED: NITROGLYCERIN 0.4 MG SUBL TABLET SL PRN (23:45)
[2020-10-05 01:36] VITALS: BP 152/72
[2020-10-05] MEDS ORDERED: SLF 3 ML SYR IV PRN (01:55)
[2020-10-05 02:04] LABS: HEMOGLOBIN A1c 7.2 %
[2020-10-05] MEDS: NEURONTIN 400 MG PO SCH ×2 (02:19→08:26)
[2020-10-05 04:00] VITALS: BP 138/68
[2020-10-05 05:58] LABS: HEMATOCRIT 36.7 % (36.0-47.0); HEMOGLOBIN 12.2 g/dl (12.0-15.5); MEAN CORPUSCULAR HEMOGLOBIN 29.3 pg (27.0-33.0); MEAN CORPUSCULAR HGB CONC 33.2 g/dl (32.0-36.5); PLATELET COUNT, AUTOMATED 264 10^3/uL (150-450); RED BLOOD COUNT 4.17 10^6/uL (4.00-5.40); WHITE BLOOD COUNT 9.3 10^3/uL (4.0-10.0)
[2020-10-05] MEDS ORDERED: SLF 3 ML SYR IV SCH (06:00)
[2020-10-05 06:30] LABS: BLOOD UREA NITROGEN 11 MG/DL (7-18); CALCIUM LEVEL 9.1 MG/DL (8.8-10.2); CARBON DIOXIDE LEVEL 26 MEQ/L (21-32); CHLORIDE LEVEL 108 MEQ/L (98-107); CREATININE FOR GFR 0.77 MG/DL (0.55-1.30); GLOMERULAR FILTRATION RATE > 60.0 (>39); GLUCOSE, FASTING 121 MG/DL (70-100); MAGNESIUM LEVEL 1.7 MG/DL (1.8-2.4); POTASSIUM SERUM 4.1 MEQ/L (3.5-5.1); SODIUM LEVEL 141 MEQ/L (136-145)
[2020-10-05] MEDS ORDERED: HumaLOG INSULIN (NovoLOG) PER UNIT SC SCH (07:30)
[2020-10-05 08:00] VITALS: BP 138/72
[2020-10-05] MEDS: ENOXAPARIN 40MG/0.4ML SYRINGE (J1650 PER 10MG) SC SCH ×2 (08:25→08:40)
[2020-10-05 08:26] VITALS: BP 138/68
[2020-10-05] MEDS ORDERED: GABAPENTIN 400MG CAP PO SCH (09:00)
[2020-10-05] MEDS ORDERED: OMEPRAZOLE 20 MG CAP PO SCH (09:00)
[2020-10-05] MEDS ORDERED: CARVedilol 6.25 MG TAB PO SCH (12:00)
[2020-10-05] MEDS ORDERED: CLOPIDOGREL 75 MG TAB PO SCH (18:00)
--- NOTE | 2020-10-05 21:23 | DS.PDOC ---
Discharge Summary General Date of Admission Oct 04, 2020 at 23:13 Date of Discharge Oct 05, 2020 Discharge Summary PROCEDURES PERFORMED DURING STAY: None ADMITTING DIAGNOSES: 1. Hypertensive emergency 2. Hyperkalemia 3. NIDDM type 2 4. Hyperlipidemia 5. Sensory integration disorder 6. CAD 7. Macular degeneration with left eye blindness DISCHARGE DIAGNOSES: 1. Hypertensive emergency 2. Hyperkalemia 3. NIDDM type 2 4. Hyperlipidemia 5. Sensory integration disorder 6. CAD 7. Macular degeneration with left eye blindness COMPLICATIONS/CHIEF COMPLAINT: Hypertensive Emergency W/O Chf. HISTORY OF PRESENT ILLNESS: Copied from admitting provider's H&P " Mrs. Correa is a 70-year-old female who presented to the ER this evening with complaints of persistent elevation of blood pressure. According to the patient and her . She has a history of labile blood pressure. She was seen by primary care today and started on a continuous blood pressure monitor because they "wanted to see what my blood pressure did, on an average day". She states that sometimes her blood pressure will drop to 80 systolic. Her says that it drops to 40 at times. It was not clear whether he met systolic or diastolic. But the patient and her are very anxious about the readings that they have been noticing today. They have kept a running record of her blood pressures every 5 minutes since the blood pressure cuff was applied this afternoon. They noticed extremely high readings after they returned home and the patient took her when necessary labetalol as directed. They did not notice any improvement in blood pressure and so returned to primary care. They were told to continue to monitor and returned home. Since they continue to see elevated readings, they decided not to eat dinner and to instead proceed directly to the ER. On initial evaluation, her blood pressure was 185/80, but increased to 232/ 98. She was given a dose of labetalol with blood pressure improving back to 185/82. Despite the dose of labetalol. Her blood pressure continued to increase with maximum breathing noted at 244/101. The patient and her were increasingly anxious throughout the evening and her very worried about making sure that she gets her Neurontin. She has a history of sensory integration disorder and states that she reacts differently to all kinds of medications. She says she is unable to take the generic gabapentin must have name brand Neurontin. She is very worried about her being able to return to the hospital with her name chaz Mars and making sure that she is able to take it tonight and in the morning. Her is also very concerned about her possibly receiving hydralazine. He is insistent that somebody needs to stand by her bedside in case she has a reaction. The patient is also concerned about decreased vision and being able to make it back and forth to the bathroom. She is strongly encouraged and instructed on use of the call light, and the need to stay in bed until she has the assistance of staff to ambulate to the bathroom. Patient has a history of essential tremors and had previously been diagnosed with a seizure disorder. She was seen by neurology at some point in the last year and it was determined that she does not have a seizure disorder but instead has essential tremors. She complained of some "shaking and chattering teeth" with her high blood pressure. She says she has experienced this in the past. She does not lose consciousness when this occurs. Patient was also noted to have an elevated potassium of 5.3. She was given half dose of Kayexalate in the ER. General mild elevation of alkaline phosphatase, but labs were otherwise unremarkable. Chest x-ray was negative. CT of the head was also negative. " HOSPITAL COURSE: Overnight, she only required one dose of IV hydralazine. She did not require IV labetalol. Blood pressure was controlled throughout the night. The following morning, she was anxious about her blood pressure. She would like to see her thoroughbred horse farm manager, Dr. Porter to help manage her blood pressure. Otherwise, since her blood pressure was controlled and she was feeing better, she was discharged home. DISCHARGE MEDICATIONS: Please see below. ALLERGIES: Please see below. PHYSICAL EXAMINATION ON DISCHARGE: VITAL SIGNS: Please see below. GENERAL: Comfortable, in no apparent distress HEENT: Head normocephalic, atraumatic NECK: Supple CARDIOVASCULAR EXAMINATION: Regular rate and rhythm RESPIRATORY EXAMINATION: Lungs clear to auscultation bilaterally ABDOMINAL EXAMINATION: Soft, non-tender, normal bowel sounds EXTREMITIES: No pitting edema bilaterally SKIN: Warm and dry NEUROLOGICAL EXAMINATION: CN 3-12 grossly intact PSYCHIATRIC EXAMINATION: Anxious LABORATORY DATA: Please see below. IMAGING: Radiologist interpretation CT head No acute intracranial findings. CXR No acute findings. PROGNOSIS: Good ACTIVITY: As tolerated. DIET: Carbohydrate consistent DISCHARGE PLAN: Home DISPOSITION: Home, Self-Care. DISCHARGE INSTRUCTIONS: 1. Follow up with your PCP within 1 week 2. Follow up with your thoroughbred horse farm manager, Dr. Porter within 1 week ITEMS TO FOLLOWUP ON ON OUTPATIENT: 1. Blood pressure DISCHARGE CONDITION: Stable. Total time spent on discharge planning, discharge summary, and medication reconciliation: 40 minutes Vital Signs/I&Os Vital Signs Date Time Temp Pulse Resp B/P (MAP) Pulse Ox O2 Delivery O2 Flow Rate FiO2 10/05/20 08:26 85 138/68 10/05/20 08:00 98.7 18 96 Room Air I&O- Last 24 Hours up to 6 AM 10/05/20 06:00 Output Total 400 ml Balance -400 ml Laboratory Data Labs 24H Laboratory Tests 2 10/05/20 01:08: Estimated Mean Plasma Glucose 160H, Hemoglobin A1c 7.2 10/05/20 05:37: Nucleated Red Blood Cells % (auto) 0.0, Anion Gap 7L, Glomerular Filtration Rate > 60.0, Calcium Level 9.1, Magnesium Level 1.7L CBC/BMP Laboratory Tests 10/05/20 05:37 Discharge Medications Scheduled Amlodipine Besylate (Amlodipine Besylate) 10 Mg Tab, 10 MG PO DAILY, (Reported) Atorvastatin Calcium (Atorvastatin Calcium) 40 Mg Tab, 40 MG PO QHS, (Reported) Carvedilol (Carvedilol) 6.25 Mg Tab, 6.25 MG PO BID, (Reported) 1200, 1800 Cholecalciferol (Vitamin D3) (Vitamin D3) 1,000 Unit Tablet, 1,000 UNITS PO DAILY, (Reported) Clopidogrel Bisulfate (Plavix) 75 Mg Tablet, 75 MG PO QPM, (Reported) TAKES AT 1700 Gabapentin (Neurontin) 400 Mg Capsule, 400 MG PO QID, (Reported) TAKES BRAND NAME NEURONTIN AT HOME Metformin HCl (Metformin HCl) 500 Mg Tablet, 500 MG PO DAILY, (Reported) Metformin HCl (Metformin HCl) 500 Mg Tablet, 1,000 MG PO QPM, (Reported) TAKES AROUND DINNERTIME Multivitamins (Thera M Plus Tablet) 1 Each Tablet, 1 TAB PO DAILY, (Reported) Omeprazole (Omeprazole) 20 Mg Capsule.dr, 20 MG PO DAILY, (Reported) Telmisartan (Telmisartan) 80 Mg Tablet, 80 MG PO QHS, (Reported) Ubidecarenone/Vit E Acet (Co Q-10 100 mg Softgel) 100 Mg Cap, 100 MG PO DAILY, (Reported) Vit C/E/Zn/Coppr/Lutein/Zeaxan (Preservision Areds 2 Softgel) 1 Each Capsule, 1 EACH PO BID, (Reported) Scheduled PRN Labetalol HCl (Labetalol HCl) 100 Mg Tablet, 100 MG PO DAILY PRN for BP>150, (Reported) Nitroglycerin (Nitrostat) 0.4 Mg Tab.subl, 0.4 MG SL NITRO PRN for CHEST PAIN, (Reported) Allergies Coded Allergies: ibuprofen (Verified Allergy, Severe, DOUBLE VISION,EFECTS BP,BREATHING, 12/29/19) latex (Verified Allergy, Intermediate, Hives / Rash, 12/29/19) levetiracetam (Verified Allergy, Intermediate, passed out, 05/29/20) tetanus toxoid, adsorbed (Verified Allergy, Intermediate, Fever / Swelling, 12/29/19) METALS (Verified Allergy, Unknown, METALLIC DYES, 12/29/19) aspirin (Verified Adverse Reaction, Severe, Hypertension, Seizures, 12/29/19) Wheat (Verified Adverse Reaction, Mild, DIZZY, 12/29/19) REMIGIO COKER DO Oct 05, 2020 21:23
== END 2020-10-05 11:36 | disposition home or self-care (01) ==
LOC: M ED 18:13 → M ED INP 23:13 → M PCU 10-05 01:22
PROVIDERS: ADMIT Internal Medicine; ATTEND Internal Medicine
DX: I16.0 Hypertensive urgency (principal); E87.5 Hyperkalemia; E11.9 Type 2 diabetes mellitus without complications; E78.49 Other hyperlipidemia; F88 Other disorders of psychological development; I25.10 Atherosclerotic heart disease of native coronary artery without angina pectoris; H35.30 Unspecified macular degeneration; Z79.84 Long term (current) use of oral hypoglycemic drugs; Z79.899 Other long term (current) drug therapy; Z91.040 Latex allergy status; Z88.7 Allergy status to serum and vaccine; Z88.8 Allergy status to other drugs, medicaments and biological substances
CPT/HCPCS: 36415; 70450; 71045; 80048; 80076; 82550; 82553; 83036; 83735; 84439; 84443; 84484; 85025; 85027; 87631; 93005; 93041; 94760; 96374; 96375; 99285; G0378; J0360

== ENCOUNTER → 2020-10-05 | Outpatient (REF) | payer MEDICARE, OTHER | LOC: M WUC 10:17 | PROVIDERS: ATTEND Physician Assistant | DX: R50.9 Fever, unspecified (principal); R68.83 Chills (without fever) ==

== ENCOUNTER → 2020-11-02 | Outpatient (CLI) | payer MEDICARE, OTHER ==
[2020-11-02 17:43] LABS: BLOOD UREA NITROGEN 13 MG/DL (7-18); CALCIUM LEVEL 9.3 MG/DL (8.8-10.2); CARBON DIOXIDE LEVEL 23 MEQ/L (21-32); CHLORIDE LEVEL 107 MEQ/L (98-107); CREATININE FOR GFR 0.97 MG/DL (0.55-1.30); GLOMERULAR FILTRATION RATE > 60.0 (>39); GLUCOSE, FASTING 174 MG/DL (70-100); POTASSIUM SERUM 4.3 MEQ/L (3.5-5.1); SODIUM LEVEL 141 MEQ/L (136-145)
== END ==
LOC: M PLALAB 14:24
PROVIDERS: ATTEND Internal Medicine Endocrinology, Diabetes & Metabolism
DX: I25.10 Atherosclerotic heart disease of native coronary artery without angina pectoris (principal); I10 Essential (primary) hypertension

== ENCOUNTER → 2020-11-16 | Outpatient (REF) | payer MEDICARE, OTHER | LOC: M LAB REF 20:02 | PROVIDERS: ATTEND Nurse Practitioner Family | DX: R50.9 Fever, unspecified (principal) ==

== ENCOUNTER → 2020-11-30 | Outpatient (REF) | payer MEDICARE, OTHER ==
[2020-11-30 14:28] LABS: APPEARANCE, URINE HAZY (CLEAR); BACTERIA, URINE AUTO 1+ (NEGATIVE); BILIRUBIN, URINE AUTO NEGATIVE (NEGATIVE); BLOOD, URINE BLOOD NEGATIVE (NEGATIVE); COLOR, URINE YELLOW (YELLOW); GLUCOSE, URINE (UA) AUTO 3+ mg/dL (NEGATIVE); KETONE, URINE AUTO NEGATIVE (NEGATIVE); LEUKOCYTE ESTERASE, URINE AUTO TRACE (NEGATIVE); NITRITE, URINE AUTO NEGATIVE (NEGATIVE); PROTEIN, URINE AUTO NEGATIVE (NEGATIVE); RBC, URINE AUTO 0 /HPF (0-3); SPECIFIC GRAVITY URINE AUTO 1.013 (1.002-1.035); SQUAMOUS EPITHELIAL CELL UR AU 0 /HPF (0-6); UROBILINOGEN, URINE AUTO 0.2 mg/dL (0.0-2.0); WBC, URINE AUTO 3 /HPF (0-3)
== END ==
LOC: M SMT 13:30
PROVIDERS: ATTEND Nurse Practitioner Family
DX: N39.0 Urinary tract infection, site not specified (principal)
CPT/HCPCS: 51798; 81001; 87086; G0463

== ENCOUNTER → 2020-12-13 | Outpatient (CLI) | payer MEDICARE, OTHER ==
--- NOTE | 2020-12-13 15:23 | REP ---
INDICATION: FREQ UTI TECHNIQUE: Real time singer scale ultrasound examination using curved array transducer. FINDINGS: Bilateral kidneys are normal in contour, size, echogenicity and reniform shape. Mild cortical thinning and increased central sinus fat consistent with chronic age-related changes. No hydronephrosis, nephrolithiasis, cystic or renal mass lesion. Right kidney measures 11.9 x 4.3 x 4.4 cm. Left kidney measures 11.7 x 4.4 x 5.1 cm. IMPRESSION: 1. Age-related renal changes. <Electronically signed by Ravi Martin > 12/13/20 [id number]
--- NOTE | 2020-12-13 16:20 | REP ---
INDICATION: FREQ UTI. COMPARISON: None. TECHNIQUE: Transvesical scanning FINDINGS: The pre void urinary bladder volume calculation is 193.5 cc and the postvoid urinary bladder volume calculation is 0 cc. Doppler of the ureterovesical junction bilaterally shows uro jet phenomena. There is no evidence of a mucosal abnormality or a bladder mass. IMPRESSION: As above.. <Electronically signed by Gustavo Perdomo > 12/13/20 [id number]
== END ==
LOC: M RAD 14:46
PROVIDERS: ATTEND Nurse Practitioner Family
DX: N39.0 Urinary tract infection, site not specified (principal)

== ENCOUNTER → 2021-02-10 | Outpatient (REF) | payer MEDICARE, OTHER | LOC: M LAB REF 19:16 | PROVIDERS: ATTEND Physician Assistant | DX: R53.83 Other fatigue (principal) ==

== ENCOUNTER → 2021-03-01 | Outpatient (REF) | payer MEDICARE, OTHER ==
[2021-03-01 13:32] LABS: APPEARANCE, URINE CLEAR (CLEAR); BACTERIA, URINE AUTO 1+ (NEGATIVE); BILIRUBIN, URINE AUTO NEGATIVE (NEGATIVE); BLOOD, URINE BLOOD NEGATIVE (NEGATIVE); COLOR, URINE STRAW (YELLOW); GLUCOSE, URINE (UA) AUTO 3+ mg/dL (NEGATIVE); KETONE, URINE AUTO NEGATIVE (NEGATIVE); LEUKOCYTE ESTERASE, URINE AUTO NEGATIVE (NEGATIVE); MUCUS, URINE SMALL (NEGATIVE); NITRITE, URINE AUTO NEGATIVE (NEGATIVE); PROTEIN, URINE AUTO NEGATIVE (NEGATIVE); RBC, URINE AUTO 0 /HPF (0-3); SPECIFIC GRAVITY URINE AUTO 1.015 (1.002-1.035); SQUAMOUS EPITHELIAL CELL UR AU 1 /HPF (0-6); UROBILINOGEN, URINE AUTO 0.2 mg/dL (0.0-2.0); WBC, URINE AUTO 1 /HPF (0-3)
== END ==
LOC: M SMT 13:08
PROVIDERS: ATTEND Nurse Practitioner Women's Health
DX: N39.0 Urinary tract infection, site not specified (principal)
CPT/HCPCS: 81001; 87086; G0463

== ENCOUNTER → 2021-03-08 | Outpatient (REF) | payer MEDICARE, OTHER | LOC: M LAB REF 15:10 | PROVIDERS: ATTEND Internal Medicine Gastroenterology | DX: R19.7 Diarrhea, unspecified (principal) ==

== ENCOUNTER → 2021-04-07 | Outpatient (CLI) | payer MEDICARE, OTHER ==
[~2021-04-07] MED LIST changes: +D-MA500C2 PO; +D-MAPOW4 XX; +FAMO1TAB11 PO; +FARX1TAB3 PO; +OMEP-173 PO; -OMEP-218 PO
[2021-04-07 15:34] LABS: BASO % 0.6 % (0.0-1.0); EOS # 0.2 10^3/uL (0.0-0.5); EOS % 2.3 % (0.0-3.0); HEMATOCRIT 45.3 % (36.0-47.0); HEMOGLOBIN 14.5 g/dl (12.0-15.5); LYMPH # 1.2 10^3/uL (1.5-5.0); LYMPH % 19.2 % (24.0-44.0); MEAN CORPUSCULAR HEMOGLOBIN 29.1 pg (27.0-33.0); MEAN CORPUSCULAR VOLUME 90.8 fl (80.0-96.0); MONO # 0.7 10^3/uL (0.0-0.8); MONO % 10.6 % (2.0-8.0); NEUTROPHILS # 4.3 10^3/uL (1.5-8.5); NEUTROPHILS % 66.7 % (36.0-66.0); PLATELET COUNT, AUTOMATED 277 10^3/uL (150-450); RED BLOOD COUNT 4.99 10^6/uL (4.00-5.40); WHITE BLOOD COUNT 6.4 10^3/uL (4.0-10.0)
[2021-04-07 15:46] LABS: INR 0.94; PARTIAL THROMBOPLASTIN TIME 28.2 SECONDS (25.9-37.0)
[2021-04-07 15:57] LABS: ALBUMIN 4.1 GM/DL (3.2-5.2); ALT/SGPT 57 U/L (12-78); BILIRUBIN,TOTAL 0.6 MG/DL (0.2-1.0); BLOOD UREA NITROGEN 12 MG/DL (7-18); CALCIUM LEVEL 9.5 MG/DL (8.8-10.2); CARBON DIOXIDE LEVEL 29 MEQ/L (21-32); CHLORIDE LEVEL 104 MEQ/L (98-107); GLOMERULAR FILTRATION RATE > 60.0 (>39); GLUCOSE, FASTING 258 MG/DL (70-100); NT-PRO BNP 77 PG/ML (<125); POTASSIUM SERUM 3.8 MEQ/L (3.5-5.1); SODIUM LEVEL 140 MEQ/L (136-145); TOTAL PROTEIN 7.1 GM/DL (6.4-8.2)
== END ==
LOC: M PLALAB 13:09
PROVIDERS: ATTEND Family Medicine
DX: Z01.812 Encounter for preprocedural laboratory examination (principal); I10 Essential (primary) hypertension; Z79.01 Long term (current) use of anticoagulants; E11.311 Type 2 diabetes mellitus with unspecified diabetic retinopathy with macular edema; G40.909 Epilepsy, unspecified, not intractable, without status epilepticus; I25.10 Atherosclerotic heart disease of native coronary artery without angina pectoris; K52.9 Noninfective gastroenteritis and colitis, unspecified

== ENCOUNTER → 2021-04-21 | Outpatient (REF) | payer MEDICARE, OTHER ==
[~2021-04-21] MED LIST changes: -OMEP-173 PO; +OMEP-218 PO
== END ==
LOC: M WUC 17:33
PROVIDERS: ATTEND Nurse Practitioner Family
DX: R30.0 Dysuria (principal); R53.83 Other fatigue

== ENCOUNTER 2021-10-03 19:24 | Observation (INO) | payer MEDICARE, OTHER ==
[~2021-10-03] VITALS: Ht 162.6 cm; Wt 84.8 kg
[~2021-10-03 19:24] MED LIST changes: -D31000TA2 PO; +OMEP-173 PO; -OMEP-218 PO; +VITA100093 PO
[2021-10-03] MEDS ORDERED: D-MA500C2 PO (20:01)
[2021-10-03 20:44] LABS: BASO % 0.6 % (0.0-1.0); EOS # 0.2 10^3/uL (0.0-0.5); EOS % 2.1 % (0.0-3.0); HEMATOCRIT 44.3 % (36.0-47.0); HEMOGLOBIN 14.8 g/dl (12.0-15.5); LYMPH # 1.4 10^3/uL (1.5-5.0); LYMPH % 20.1 % (24.0-44.0); MEAN CORPUSCULAR HEMOGLOBIN 30.1 pg (27.0-33.0); MEAN CORPUSCULAR HGB CONC 33.4 g/dl (32.0-36.5); MEAN CORPUSCULAR VOLUME 90.2 fl (80.0-96.0); MONO # 0.8 10^3/uL (0.0-0.8); MONO % 11.7 % (2.0-8.0); NEUTROPHILS # 4.7 10^3/uL (1.5-8.5); NEUTROPHILS % 64.9 % (36.0-66.0); PLATELET COUNT, AUTOMATED 244 10^3/uL (150-450); RED BLOOD COUNT 4.91 10^6/uL (4.00-5.40); WHITE BLOOD COUNT 7.2 10^3/uL (4.0-10.0)
[2021-10-03 20:57] LABS: INR 0.87; PROTHROMBIN TIME 12.2 SECONDS (12.7-14.5)
[2021-10-03] MEDS ORDERED: TELMISARTAN 20 MG TAB PO SCH (21:00)
[2021-10-03 21:12] LABS: MB/CK RELATIVE INDEX 0.61 (< OR =4)
[2021-10-03 21:13] LABS: CALCIUM LEVEL 9.6 MG/DL (8.8-10.2); CREATININE FOR GFR 0.98 MG/DL (0.55-1.30); GLOMERULAR FILTRATION RATE 59.2 (>39); POTASSIUM SERUM 4.4 MEQ/L (3.5-5.1)
[2021-10-03 23:31] LABS: CK-MB VALUE MASS 1.3 NG/ML (<3.6); MB/CK RELATIVE INDEX 1.07 (< OR =4)
[2021-10-03] MEDS: ACETAMINOPHEN TAB 650MG DOSE (2X325MG) PO ONE ×2 (23:55→23:59)
[2021-10-04] MEDS ORDERED: GLUCAGON INJ 1MG VIAL SC PRN (00:05)
[2021-10-04] MEDS ORDERED: GLUCOSE 4GM CHEW TABLET PO PRN (00:05)
[2021-10-04] MEDS ORDERED: DEXTROSE 50% 50 ML SYRINGE IV PRN (00:05)
[2021-10-04 00:39] LABS: RSV AMPLIFICATION NEGATIVE (NEGATIVE)
[2021-10-04 02:30] VITALS: BP 167/68
[2021-10-04] MEDS ORDERED: ACETAMINOPHEN TAB 650MG DOSE (2X325MG) PO PRN (04:00)
[2021-10-04] MEDS ORDERED: LABETALOL 100MG TAB PO PRN (04:15)
[2021-10-04 06:00] VITALS: BP 153/77
[2021-10-04] MEDS ORDERED: HOME MED LIST COMPLETE! XX SCH (06:30)
[2021-10-04 06:35] LABS: BASO % 0.4 % (0.0-1.0); EOS # 0.1 10^3/uL (0.0-0.5); EOS % 1.2 % (0.0-3.0); HEMATOCRIT 46.3 % (36.0-47.0); HEMOGLOBIN 15.4 g/dl (12.0-15.5); MEAN CORPUSCULAR HEMOGLOBIN 29.4 pg (27.0-33.0); MEAN CORPUSCULAR HGB CONC 33.3 g/dl (32.0-36.5); MEAN CORPUSCULAR VOLUME 88.5 fl (80.0-96.0); MONO # 0.9 10^3/uL (0.0-0.8); MONO % 9.9 % (2.0-8.0); NEUTROPHILS # 6.9 10^3/uL (1.5-8.5); NEUTROPHILS % 76.9 % (36.0-66.0); PLATELET COUNT, AUTOMATED 229 10^3/uL (150-450); RED BLOOD COUNT 5.23 10^6/uL (4.00-5.40)
[2021-10-04 07:02] LABS: HEMOGLOBIN A1c 7.2 %
[2021-10-04 07:18] LABS: BLOOD UREA NITROGEN 11 MG/DL (7-18); CALCIUM LEVEL 9.2 MG/DL (8.8-10.2); CARBON DIOXIDE LEVEL 25 MEQ/L (21-32); CHLORIDE LEVEL 107 MEQ/L (98-107); CREATININE FOR GFR 0.77 MG/DL (0.55-1.30); GLOMERULAR FILTRATION RATE > 60.0 (>39); GLUCOSE, FASTING 120 MG/DL (70-100); MAGNESIUM LEVEL 2.1 MG/DL (1.8-2.4); POTASSIUM SERUM 4.2 MEQ/L (3.5-5.1); SODIUM LEVEL 139 MEQ/L (136-145)
[2021-10-04 08:44] VITALS: BP 178/90
[2021-10-04] MEDS ORDERED: FAMOTIDINE 20 MG TAB PO SCH (09:00)
[2021-10-04] MEDS ORDERED: NEURONTIN 400 MG PO SCH (09:00)
[2021-10-04] MEDS ORDERED: VITAMIN D 1,000 INTERNATIONAL UNITS TABLET PO SCH (09:00)
[2021-10-04] MEDS ORDERED: CARVedilol 6.25 MG TAB PO SCH (09:00)
[2021-10-04] MEDS ORDERED: MULTIVITAMINS/MINERALS THERAP 1 TAB PO SCH (09:00)
[2021-10-04] MEDS: INSULIN LISPRO (NovoLOG) PER UNIT SC SCH ×3 (09:01→11:58)
[2021-10-04 10:19] VITALS: BP 119/58
[2021-10-04] MEDS: CARVedilol 6.25 MG TAB PO SCH ×2 (10:50→11:57)
[2021-10-04 11:44] VITALS: BP 147/68
[2021-10-04 12:00] VITALS: BP 147/68
[2021-10-04] MEDS ORDERED: INSULIN LISPRO (NovoLOG) PER UNIT SC SCH (21:00)
[2021-10-04] MEDS ORDERED: ATORVASTATIN 20 MG TAB PO SCH (21:00)
[2021-10-04] MEDS ORDERED: CLOPIDOGREL 75 MG TAB PO SCH (21:00)
[2021-10-05] MEDS ORDERED: UNRESOLVED PATIENT OWN MED ORDER XX SCH (00:01)
== END 2021-10-04 13:34 | disposition home or self-care (01) ==
LOC: M ED 19:24 → M ED INP 23:59 → M MSPAV 10-04 02:29 → M 4MAIN 10-04 08:27
PROVIDERS: ADMIT Internal Medicine; ATTEND Internal Medicine
DX: I10 Essential (primary) hypertension (principal); E11.9 Type 2 diabetes mellitus without complications; U07.1 COVID-19; I25.10 Atherosclerotic heart disease of native coronary artery without angina pectoris; E78.5 Hyperlipidemia, unspecified; K21.9 Gastro-esophageal reflux disease without esophagitis; G47.33 Obstructive sleep apnea (adult) (pediatric); Z85.3 Personal history of malignant neoplasm of breast; Z85.44 Personal history of malignant neoplasm of other female genital organs; Z92.3 Personal history of irradiation; Z91.19 Patient's noncompliance with other medical treatment and regimen; Z79.899 Other long term (current) drug therapy; Z88.8 Allergy status to other drugs, medicaments and biological substances; Z91.040 Latex allergy status; Z88.7 Allergy status to serum and vaccine; Z91.018 Allergy to other foods
CPT/HCPCS: 36415; 71045; 80048; 80307; 81001; 82550; 82553; 83036; 83735; 83880; 84436; 84443; 84479; 84484; 85025; 85610; 87428; 87631; 93005; 93041; 94760; 99284; 99285; G0378

== ENCOUNTER 2021-10-04 16:18 | Observation (INO) | payer MEDICARE, OTHER ==
[~2021-10-04] VITALS: Ht 162.6 cm; Wt 89.4 kg
[2021-10-04 20:25] LABS: BASO # 0.1 10^3/uL (0.0-0.2); BASO % 0.6 % (0.0-1.0); EOS # 0.1 10^3/uL (0.0-0.5); EOS % 0.6 % (0.0-3.0); HEMOGLOBIN 15.8 g/dl (12.0-15.5); LYMPH # 0.8 10^3/uL (1.5-5.0); LYMPH % 9.1 % (24.0-44.0); MEAN CORPUSCULAR HEMOGLOBIN 30.2 pg (27.0-33.0); MEAN CORPUSCULAR HGB CONC 33.6 g/dl (32.0-36.5); MEAN CORPUSCULAR VOLUME 89.7 fl (80.0-96.0); MONO # 1.5 10^3/uL (0.0-0.8); MONO % 17.3 % (2.0-8.0); NEUTROPHILS # 6.4 10^3/uL (1.5-8.5); PLATELET COUNT, AUTOMATED 246 10^3/uL (150-450); RED BLOOD COUNT 5.24 10^6/uL (4.00-5.40); WHITE BLOOD COUNT 8.9 10^3/uL (4.0-10.0)
[2021-10-04] MEDS ORDERED: CLOPIDOGREL 75 MG TAB PO SCH (21:00)
[2021-10-04] MEDS ORDERED: TELMISARTAN 20 MG TAB PO SCH (21:00)
[2021-10-04 21:06] LABS: FREE THYROXINE INDEX 3.5 % (1.3-4.8); MAGNESIUM LEVEL 2.2 MG/DL (1.8-2.4); THYROID STIMULATING HORMONE 4.08 uIU/ML (0.358-3.740); THYROXINE (T4) 10.6 UG/DL (4.5-12.0)
[2021-10-04] MEDS ORDERED: FLUTICASONE PROP 0.05% NASAL SPRAY 16 GM (FLONASE) NARES PRN (22:25)
[2021-10-04] MEDS ORDERED: NS 1,000 ML IV SCH (22:25)
[2021-10-04] MEDS ORDERED: CEPACOL LOZENGE PO PRN (22:25)
[2021-10-04] MEDS ORDERED: GLUCOSE 4GM CHEW TABLET PO PRN (22:25)
[2021-10-04] MEDS ORDERED: DEXTROSE 50% 50 ML SYRINGE IV PRN (22:25)
[2021-10-04] MEDS ORDERED: GLUCAGON INJ 1MG VIAL SC PRN (22:25)
[2021-10-04] MEDS ORDERED: ACETAMINOPHEN TAB 650MG DOSE (2X325MG) PO PRN (22:25)
[2021-10-04 22:29] LABS: AMPHETAMINES LEVEL URINE NEGATIVE (NEGATIVE); BARBITURATES URINE NEGATIVE (NEGATIVE); BENZODIAZEPINES URINE NEGATIVE (NEGATIVE); CANNABINOIDS URINE NEGATIVE (NEGATIVE); COCAINE METABOLITE URINE NEGATIVE (NEGATIVE); METHADONE URINE NEGATIVE (NEGATIVE); OPIATES URINE NEGATIVE (NEGATIVE); PHENCYCLIDINE URINE NEGATIVE (NEGATIVE)
[2021-10-04 23:11] VITALS: BP 130/76
[2021-10-05] MEDS ORDERED: UNRESOLVED PATIENT OWN MED ORDER XX SCH (00:01)
[2021-10-05] MEDS ORDERED: HOME MED LIST COMPLETE! XX SCH (00:05)
[2021-10-05] MEDS ORDERED: LABETALOL 100MG TAB PO PRN (00:30)
[2021-10-05] MEDS ORDERED: FOSFOMYCIN TROMETHAMINE 3 GM POWDER PACKET (MONUROL) PO ONE (01:00)
[2021-10-05] MEDS: NEURONTIN 400 MG PO SCH ×3 (01:13→12:39)
[2021-10-05 04:00] VITALS: BP 103/54
[2021-10-05 06:08] LABS: HEMATOCRIT 40.3 % (36.0-47.0); MEAN CORPUSCULAR HEMOGLOBIN 30.4 pg (27.0-33.0); MEAN CORPUSCULAR HGB CONC 33.7 g/dl (32.0-36.5); PLATELET COUNT, AUTOMATED 180 10^3/uL (150-450); RED BLOOD COUNT 4.48 10^6/uL (4.00-5.40); WHITE BLOOD COUNT 5.6 10^3/uL (4.0-10.0)
[2021-10-05 06:19] LABS: HEMOGLOBIN 13.6 g/dl (12.0-15.5)
[2021-10-05 06:33] LABS: ALBUMIN 3.2 GM/DL (3.2-5.2); ALT/SGPT 69 U/L (12-78); BILIRUBIN,TOTAL 0.7 MG/DL (0.2-1.0); BLOOD UREA NITROGEN 13 MG/DL (7-18); CALCIUM LEVEL 8.1 MG/DL (8.8-10.2); CARBON DIOXIDE LEVEL 24 MEQ/L (21-32); CHLORIDE LEVEL 109 MEQ/L (98-107); CREATININE FOR GFR 0.82 MG/DL (0.55-1.30); GLOMERULAR FILTRATION RATE > 60.0 (>39); GLUCOSE, FASTING 122 MG/DL (70-100); MAGNESIUM LEVEL 2.1 MG/DL (1.8-2.4); SODIUM LEVEL 140 MEQ/L (136-145); TOTAL PROTEIN 5.9 GM/DL (6.4-8.2)
[2021-10-05 08:00] LABS: C REACTIVE PROTEIN QUANTITATIV 1.95 MG/DL (0.00-0.30)
[2021-10-05] MEDS: CARVedilol 6.25 MG TAB PO SCH ×2 (08:01→12:39)
[2021-10-05] MEDS: INSULIN LISPRO (NovoLOG) PER UNIT SC SCH ×2 (08:01→12:00)
[2021-10-05 08:22] LABS: ERYTHROCYTE SEDIMENTATION RATE 15 mm/hr (0-30)
[2021-10-05 08:51] LABS: VITAMIN B12 LEVEL 338 PG/ML (247-911)
[2021-10-05] MEDS ORDERED: VITAMIN D 1,000 INTERNATIONAL UNITS TABLET PO SCH (09:00)
[2021-10-05] MEDS ORDERED: FAMOTIDINE 20 MG TAB PO SCH (09:00)
[2021-10-05] MEDS ORDERED: MULTIVITAMINS/MINERALS THERAP 1 TAB PO SCH (09:00)
[2021-10-05 12:00] VITALS: BP 114/57
[2021-10-05 12:39] VITALS: BP 114/57
[2021-10-05] MEDS ORDERED: PROHANCE 279.3MG/ML 15ML VIAL As Ordered ONE (14:54)
[2021-10-05] MEDS ORDERED: PROHANCE 279.3MG/ML 5ML VIAL As Ordered ONE (14:54)
[2021-10-05] MEDS ORDERED: INSULIN LISPRO (NovoLOG) PER UNIT SC SCH (21:00)
[2021-10-05] MEDS ORDERED: ATORVASTATIN 20 MG TAB PO SCH (21:00)
== END 2021-10-05 17:00 | disposition home or self-care (01) ==
LOC: M ED 16:18 → M ED INP 16:19 → M 4MAIN 21:11
PROVIDERS: ADMIT Internal Medicine; ATTEND Internal Medicine
DX: R44.1 Visual hallucinations (principal)

== ENCOUNTER → 2021-10-16 | Outpatient (CLI) | payer MEDICARE, OTHER ==
[2021-10-16 10:44] LABS: BASO # 0.1 10^3/uL (0.0-0.2); BASO % 0.8 % (0.0-1.0); EOS # 0.1 10^3/uL (0.0-0.5); EOS % 1.5 % (0.0-3.0); LYMPH # 1.4 10^3/uL (1.5-5.0); MEAN CORPUSCULAR HEMOGLOBIN 29.7 pg (27.0-33.0); MEAN CORPUSCULAR HGB CONC 31.8 g/dl (32.0-36.5); MEAN CORPUSCULAR VOLUME 93.4 fl (80.0-96.0); MONO # 0.8 10^3/uL (0.0-0.8); MONO % 12.6 % (2.0-8.0); NEUTROPHILS # 4.2 10^3/uL (1.5-8.5); NEUTROPHILS % 63.3 % (36.0-66.0); PLATELET COUNT, AUTOMATED 279 10^3/uL (150-450); RED BLOOD COUNT 4.71 10^6/uL (4.00-5.40); WHITE BLOOD COUNT 6.6 10^3/uL (4.0-10.0)
[2021-10-16 11:43] LABS: C REACTIVE PROTEIN QUANTITATIV < 0.30 MG/DL (0.00-0.30); CHOLESTEROL LEVEL 166 MG/DL (<200); CHOLESTEROL RISK RATIO 4.256 (<5); FREE T4 0.91 NG/DL (0.76-1.46); HDL CHOLESTEROL 39 MG/DL (>40); LDL CHOLESTEROL 66 MG/DL (<100); NON-HDL-C 127 MG/DL; TRIGLYCERIDES LEVEL 307 MG/DL (<150)
== END ==
LOC: M PLALAB 08:43
PROVIDERS: ATTEND Internal Medicine Hematology
DX: U07.1 COVID-19 (principal); E78.5 Hyperlipidemia, unspecified

== ENCOUNTER → 2021-11-08 | Outpatient (REF) | payer MEDICARE, OTHER ==
[2021-11-08 16:03] LABS: APPEARANCE, URINE HAZY (CLEAR); BACTERIA, URINE AUTO NEGATIVE (NEGATIVE); BILIRUBIN, URINE AUTO NEGATIVE (NEGATIVE); BLOOD, URINE BLOOD NEGATIVE (NEGATIVE); COLOR, URINE YELLOW (YELLOW); GLUCOSE, URINE (UA) AUTO 3+ mg/dL (NEGATIVE); KETONE, URINE AUTO NEGATIVE (NEGATIVE); LEUKOCYTE ESTERASE, URINE AUTO NEGATIVE (NEGATIVE); MUCUS, URINE SMALL (NEGATIVE); NITRITE, URINE AUTO NEGATIVE (NEGATIVE); PROTEIN, URINE AUTO NEGATIVE (NEGATIVE); RBC, URINE AUTO 4 /HPF (0-3); SPECIFIC GRAVITY URINE AUTO 1.023 (1.002-1.035); SQUAMOUS EPITHELIAL CELL UR AU 1 /HPF (0-6); UROBILINOGEN, URINE AUTO 0.2 mg/dL (0.0-2.0); WBC, URINE AUTO 3 /HPF (0-3)
== END ==
LOC: M SMT 12:51
PROVIDERS: ATTEND Nurse Practitioner Women's Health
DX: R30.0 Dysuria (principal)

== ENCOUNTER 2021-11-27 23:32 | Emergency (ER) | payer MEDICARE, OTHER ==
[~2021-11-27] VITALS: Ht 165.1 cm; Wt 84.1 kg
[2021-11-27 23:32] VITALS: BP 180/82
[~2021-11-27 23:32] MED LIST changes: -LABE100T4 PO; +LABE100T6 PO
== END 2021-11-28 01:25 | disposition left against medical advice (07) ==
LOC: M ED 23:32
DX: Z53.21 Procedure and treatment not carried out due to patient leaving prior to being seen by health care provider (principal)

== ENCOUNTER 2021-12-28 18:01 | Observation (INO) | payer MEDICARE, OTHER ==
[~2021-12-28] VITALS: Ht 165.1 cm; Wt 82.4 kg
[2021-12-28] MEDS ORDERED: TELMISARTAN 20 MG TAB PO SCH (21:00)
[2021-12-28] MEDS ORDERED: ATORVASTATIN 20 MG TAB PO SCH (21:00)
[2021-12-28 21:46] LABS: BASO % 0.4 % (0.0-1.0); EOS # 0.1 10^3/uL (0.0-0.5); EOS % 1.4 % (0.0-3.0); HEMATOCRIT 44.8 % (36.0-47.0); HEMOGLOBIN 14.7 g/dl (12.0-15.5); LYMPH # 1.7 10^3/uL (1.5-5.0); LYMPH % 22.7 % (24.0-44.0); MEAN CORPUSCULAR HEMOGLOBIN 29.8 pg (27.0-33.0); MEAN CORPUSCULAR HGB CONC 32.8 g/dl (32.0-36.5); MEAN CORPUSCULAR VOLUME 90.9 fl (80.0-96.0); MONO % 13.2 % (2.0-8.0); NEUTROPHILS # 4.5 10^3/uL (1.5-8.5); NEUTROPHILS % 61.7 % (36.0-66.0); PLATELET COUNT, AUTOMATED 253 10^3/uL (150-450); RED BLOOD COUNT 4.93 10^6/uL (4.00-5.40); WHITE BLOOD COUNT 7.3 10^3/uL (4.0-10.0)
[2021-12-28 22:17] LABS: BLOOD UREA NITROGEN 16 MG/DL (7-18); CALCIUM LEVEL 9.3 MG/DL (8.8-10.2); CARBON DIOXIDE LEVEL 25 MEQ/L (21-32); CHLORIDE LEVEL 106 MEQ/L (98-107); GLOMERULAR FILTRATION RATE > 60.0 (>39); GLUCOSE, FASTING 108 MG/DL (70-100); SODIUM LEVEL 135 MEQ/L (136-145)
[2021-12-28 22:18] LABS: POTASSIUM SERUM 4.6 MEQ/L (3.5-5.1)
[2021-12-28 22:32] LABS: CK-MB VALUE MASS < 1.0 NG/ML (<3.6); CPK CREATINE PHOSPHOKINASE 129 U/L (26-192); MB/CK RELATIVE INDEX 0.78 (< OR =4)
[2021-12-28 22:36] LABS: RSV AMPLIFICATION NEGATIVE (NEGATIVE)
[2021-12-28] MEDS ORDERED: DEXTROSE 50% 50 ML SYRINGE IV PRN (23:25)
[2021-12-28] MEDS ORDERED: GLUCOSE 4GM CHEW TABLET PO PRN (23:25)
[2021-12-28] MEDS ORDERED: GLUCAGON INJ 1MG VIAL SC PRN (23:25)
[2021-12-28] MEDS ORDERED: ACETAMINOPHEN TAB 650MG DOSE (2X325MG) PO PRN (23:25)
[2021-12-29 00:34] LABS: C REACTIVE PROTEIN QUANTITATIV < 0.30 MG/DL (0.00-0.30)
[2021-12-29 00:36] LABS: ERYTHROCYTE SEDIMENTATION RATE 8 mm/hr (0-30)
[2021-12-29] MEDS ORDERED: HOME MED LIST COMPLETE! XX SCH (00:55)
[2021-12-29] MEDS ORDERED: LABETALOL 100MG TAB PO ONE (01:00)
[2021-12-29] MEDS ORDERED: LABETALOL 100MG TAB PO PRN (01:20)
[2021-12-29 01:36] VITALS: BP 161/67
[2021-12-29 06:00] VITALS: BP 126/57
[2021-12-29 06:36] LABS: HEMATOCRIT 43.3 % (36.0-47.0); HEMOGLOBIN 14.1 g/dl (12.0-15.5); MEAN CORPUSCULAR HEMOGLOBIN 29.4 pg (27.0-33.0); MEAN CORPUSCULAR HGB CONC 32.6 g/dl (32.0-36.5); MEAN CORPUSCULAR VOLUME 90.2 fl (80.0-96.0); PLATELET COUNT, AUTOMATED 225 10^3/uL (150-450); WHITE BLOOD COUNT 6.5 10^3/uL (4.0-10.0)
[2021-12-29 07:22] LABS: ALBUMIN 3.4 GM/DL (3.2-5.2); ALT/SGPT 50 U/L (12-78); BILIRUBIN,TOTAL 0.7 MG/DL (0.2-1.0); BLOOD UREA NITROGEN 15 MG/DL (7-18); CALCIUM LEVEL 9.1 MG/DL (8.8-10.2); CARBON DIOXIDE LEVEL 28 MEQ/L (21-32); CHLORIDE LEVEL 106 MEQ/L (98-107); CHOLESTEROL LEVEL 165 MG/DL (<200); GLOMERULAR FILTRATION RATE > 60.0 (>39); GLUCOSE, FASTING 109 MG/DL (70-100); HDL CHOLESTEROL 47 MG/DL (>40); LDL CHOLESTEROL 73 MG/DL (<100); MAGNESIUM LEVEL 2.2 MG/DL (1.8-2.4); NON-HDL-C 118 MG/DL; POTASSIUM SERUM 3.7 MEQ/L (3.5-5.1); SODIUM LEVEL 138 MEQ/L (136-145); TRIGLYCERIDES LEVEL 225 MG/DL (<150)
[2021-12-29] MEDS: INSULIN LISPRO (NovoLOG) PER UNIT SC SCH ×2 (07:30→12:00)
[2021-12-29] MEDS: NEURONTIN 400 MG PO SCH ×2 (08:26→13:08)
[2021-12-29] MEDS ORDERED: VITAMIN D 1,000 INTERNATIONAL UNITS TABLET PO SCH (09:00)
[2021-12-29] MEDS ORDERED: ENOXAPARIN 40MG/0.4ML SYRINGE (J1650 PER 10MG) SC SCH (09:00)
[2021-12-29] MEDS ORDERED: FAMOTIDINE 20 MG TAB PO SCH (09:00)
[2021-12-29] MEDS ORDERED: MULTIVITAMINS/MINERALS THERAP 1 TAB PO SCH (09:00)
[2021-12-29] MEDS ORDERED: GABAPENTIN 400MG CAP PO SCH (09:00)
[2021-12-29] MEDS ORDERED: DAPAGLIFLOZIN PROPANEDIOL 10MG TABLET (FARXIGA) PO SCH (09:00)
[2021-12-29] MEDS ORDERED: CARVedilol 6.25 MG TAB PO SCH (13:00)
[2021-12-29 13:07] VITALS: BP 128/56
[2021-12-29] MEDS ORDERED: CLOPIDOGREL 75 MG TAB PO SCH (21:00)
[2021-12-29] MEDS ORDERED: INSULIN LISPRO (NovoLOG) PER UNIT SC SCH (21:00)
[2021-12-30] MEDS ORDERED: UNRESOLVED PATIENT OWN MED ORDER XX SCH (00:01)
== END 2021-12-29 14:21 | disposition home or self-care (01) ==
LOC: M ED 18:01 → M ED INP 18:09 → M MSPAV 12-29 01:36
PROVIDERS: ADMIT Internal Medicine; ATTEND Internal Medicine
DX: G45.9 Transient cerebral ischemic attack, unspecified (principal); I10 Essential (primary) hypertension; K21.9 Gastro-esophageal reflux disease without esophagitis; G40.909 Epilepsy, unspecified, not intractable, without status epilepticus; G25.0 Essential tremor; I25.10 Atherosclerotic heart disease of native coronary artery without angina pectoris; Z85.3 Personal history of malignant neoplasm of breast; Z85.41 Personal history of malignant neoplasm of cervix uteri; Z91.018 Allergy to other foods; Z88.7 Allergy status to serum and vaccine; Z91.041 Radiographic dye allergy status; Z88.8 Allergy status to other drugs, medicaments and biological substances; Z79.02 Long term (current) use of antithrombotics/antiplatelets; Z79.899 Other long term (current) drug therapy; F88 Other disorders of psychological development
CPT/HCPCS: 36415; 70450; 70551; 71045; 80048; 80053; 80061; 82550; 82553; 83036; 83735; 84443; 84484; 85025; 85027; 85652; 85730; 86140; 87631; 93005; 93041; 93880; 94760; 96372; 99285; G0378; J1650

== ENCOUNTER 2022-01-03 10:27 | Observation (INO) | payer MEDICARE, OTHER ==
[~2022-01-03] VITALS: Ht 162.6 cm; Wt 84.1 kg
[~2022-01-03 10:27] MED LIST changes: -AMLO1TAB24 PO; -PRESCAP PO
[2022-01-03 12:19] LABS: BASO % 0.5 % (0.0-1.0); EOS # 0.1 10^3/uL (0.0-0.5); EOS % 0.6 % (0.0-3.0); HEMATOCRIT 45.9 % (36.0-47.0); HEMOGLOBIN 15.1 g/dl (12.0-15.5); LYMPH # 1.3 10^3/uL (1.5-5.0); LYMPH % 14.9 % (24.0-44.0); MEAN CORPUSCULAR HEMOGLOBIN 29.8 pg (27.0-33.0); MEAN CORPUSCULAR HGB CONC 32.9 g/dl (32.0-36.5); MEAN CORPUSCULAR VOLUME 90.7 fl (80.0-96.0); MONO # 0.9 10^3/uL (0.0-0.8); MONO % 10.9 % (2.0-8.0); NEUTROPHILS # 6.1 10^3/uL (1.5-8.5); NEUTROPHILS % 72.5 % (36.0-66.0); PLATELET COUNT, AUTOMATED 266 10^3/uL (150-450); RED BLOOD COUNT 5.06 10^6/uL (4.00-5.40); WHITE BLOOD COUNT 8.5 10^3/uL (4.0-10.0)
[2022-01-03 12:29] LABS: INR 0.79; PROTHROMBIN TIME 11.4 SECONDS (12.7-14.5)
[2022-01-03 12:30] LABS: PARTIAL THROMBOPLASTIN TIME 28.6 SECONDS (25.9-37.0)
[2022-01-03 12:55] LABS: ALT/SGPT 48 U/L (12-78); BILIRUBIN,TOTAL 0.6 MG/DL (0.2-1.0); BLOOD UREA NITROGEN 12 MG/DL (7-18); CALCIUM LEVEL 9.3 MG/DL (8.8-10.2); CARBON DIOXIDE LEVEL 28 MEQ/L (21-32); CHLORIDE LEVEL 103 MEQ/L (98-107); CK-MB VALUE MASS < 1.0 NG/ML (<3.6); CPK CREATINE PHOSPHOKINASE 112 U/L (26-192); CREATININE FOR GFR 0.87 MG/DL (0.55-1.30); GLOMERULAR FILTRATION RATE > 60.0 (>39); GLUCOSE, FASTING 214 MG/DL (70-100); MB/CK RELATIVE INDEX 0.89 (< OR =4); POTASSIUM SERUM 3.9 MEQ/L (3.5-5.1); SODIUM LEVEL 137 MEQ/L (136-145); TOTAL PROTEIN 7.4 GM/DL (6.4-8.2)
[2022-01-03] MEDS ORDERED: ISOVUE-370 76% 100ML VIAL As Ordered ONE (12:55)
[2022-01-03 12:56] LABS: RSV AMPLIFICATION NEGATIVE (NEGATIVE)
[2022-01-03] MEDS ORDERED: AMLO1TAB24 PO (13:00)
[2022-01-03] MEDS ORDERED: PRESCAP PO (13:00)
[2022-01-03] MEDS ORDERED: HOME MED LIST COMPLETE! XX SCH (13:05)
[2022-01-03] MEDS ORDERED: DEXTROSE 50% 50 ML SYRINGE IV PRN (15:40)
[2022-01-03] MEDS ORDERED: GLUCAGON INJ 1MG VIAL SC PRN (15:40)
[2022-01-03] MEDS ORDERED: GLUCOSE 4GM CHEW TABLET PO PRN (15:40)
[2022-01-03] MEDS ORDERED: CLOPIDOGREL 75 MG TAB PO SCH (17:00)
[2022-01-03] MEDS ORDERED: ENTER DRUG NAME HERE (PATIENT'S OWN MED) PO SCH (17:00)
[2022-01-03] MEDS: INSULIN LISPRO (NovoLOG) PER UNIT SC SCH (17:30)
[2022-01-03 17:50] VITALS: BP 184/84
[2022-01-03] MEDS: ENOXAPARIN 40MG/0.4ML SYRINGE (J1650 PER 10MG) SC SCH (18:58)
[2022-01-03] MEDS: FAMOTIDINE 20 MG TAB PO SCH (19:00)
[2022-01-03] MEDS: CARVedilol 6.25 MG TAB PO SCH (19:00)
[2022-01-03 20:00] VITALS: BP 187/82
[2022-01-03] MEDS: OCUVITE 1 TAB PO SCH (20:09)
[2022-01-03] MEDS: NEURONTIN 400 MG PO SCH (20:09)
[2022-01-03] MEDS ORDERED: LABETALOL 100MG TAB PO PRN (20:55)
[2022-01-03 21:00] VITALS: BP 132/82
[2022-01-03] MEDS ORDERED: TELMISARTAN 20 MG TAB PO SCH (21:00)
[2022-01-03] MEDS ORDERED: INSULIN LISPRO (NovoLOG) PER UNIT SC SCH (21:00)
[2022-01-03] MEDS ORDERED: ATORVASTATIN 20 MG TAB PO SCH (21:00)
[2022-01-04 06:00] VITALS: BP 135/72
[2022-01-04] MEDS: NEURONTIN 400 MG PO SCH ×2 (06:43→12:38)
[2022-01-04] MEDS: INSULIN LISPRO (NovoLOG) PER UNIT SC SCH ×2 (07:30→12:00)
[2022-01-04] MEDS: OCUVITE 1 TAB PO SCH (08:27)
[2022-01-04] MEDS: ENOXAPARIN 40MG/0.4ML SYRINGE (J1650 PER 10MG) SC SCH (08:28)
[2022-01-04 08:53] LABS: BASO % 0.6 % (0.0-1.0); EOS # 0.1 10^3/uL (0.0-0.5); EOS % 1.2 % (0.0-3.0); HEMATOCRIT 45.6 % (36.0-47.0); LYMPH # 1.3 10^3/uL (1.5-5.0); LYMPH % 19.7 % (24.0-44.0); MEAN CORPUSCULAR HEMOGLOBIN 29.9 pg (27.0-33.0); MEAN CORPUSCULAR HGB CONC 32.9 g/dl (32.0-36.5); MONO # 0.7 10^3/uL (0.0-0.8); MONO % 11.4 % (2.0-8.0); NEUTROPHILS # 4.3 10^3/uL (1.5-8.5); NEUTROPHILS % 66.5 % (36.0-66.0); PLATELET COUNT, AUTOMATED 234 10^3/uL (150-450); RED BLOOD COUNT 5.01 10^6/uL (4.00-5.40); WHITE BLOOD COUNT 6.5 10^3/uL (4.0-10.0)
[2022-01-04] MEDS ORDERED: MULTIVITAMINS/MINERALS THERAP 1 TAB PO SCH (09:00)
[2022-01-04] MEDS ORDERED: VITAMIN D 1,000 INTERNATIONAL UNITS TABLET PO SCH (09:00)
[2022-01-04] MEDS ORDERED: amLODIPine 5 MG TAB PO SCH (09:00)
[2022-01-04 09:25] LABS: ALBUMIN 3.7 GM/DL (3.2-5.2); ALT/SGPT 45 U/L (12-78); BILIRUBIN,TOTAL 0.9 MG/DL (0.2-1.0); BLOOD UREA NITROGEN 10 MG/DL (7-18); CALCIUM LEVEL 9.6 MG/DL (8.8-10.2); CARBON DIOXIDE LEVEL 25 MEQ/L (21-32); CHLORIDE LEVEL 106 MEQ/L (98-107); CREATININE FOR GFR 0.84 MG/DL (0.55-1.30); GLOMERULAR FILTRATION RATE > 60.0 (>39); GLUCOSE, FASTING 132 MG/DL (70-100); POTASSIUM SERUM 4.2 MEQ/L (3.5-5.1); SODIUM LEVEL 136 MEQ/L (136-145); TOTAL PROTEIN 7.3 GM/DL (6.4-8.2)
[2022-01-04 12:39] VITALS: BP 169/67
[2022-01-04] MEDS: FAMOTIDINE 20 MG TAB PO SCH (12:39)
[2022-01-04] MEDS: CARVedilol 6.25 MG TAB PO SCH (12:39)
[2022-01-04 14:00] VITALS: BP 145/61
[2022-01-10 09:10] LABS: ACETYLCHOLINE RCPTOR BINDING A < 0.03 nmol/L (0.00-0.24); ACETYLCHOLINE RCPTOR BLOCK AB 15 % (0-25); COPPER PLASMA 102 ug/dL (80-158)
== END 2022-01-04 16:11 | disposition home or self-care (01) ==
LOC: M ED 10:27 → M MSPAV 10:28 → ENRESERV 15:10 → M ED 17:32
PROVIDERS: ADMIT Family Medicine; ATTEND Family Medicine
DX: R47.81 Slurred speech (principal); R25.1 Tremor, unspecified; I10 Essential (primary) hypertension; I25.10 Atherosclerotic heart disease of native coronary artery without angina pectoris; Z86.73 Personal history of transient ischemic attack (TIA), and cerebral infarction without residual deficits; K21.9 Gastro-esophageal reflux disease without esophagitis; G47.33 Obstructive sleep apnea (adult) (pediatric); Z85.3 Personal history of malignant neoplasm of breast; Z85.42 Personal history of malignant neoplasm of other parts of uterus; F88 Other disorders of psychological development; G43.909 Migraine, unspecified, not intractable, without status migrainosus; Z79.02 Long term (current) use of antithrombotics/antiplatelets; Z79.899 Other long term (current) drug therapy; Z91.040 Latex allergy status; Z91.018 Allergy to other foods; Z88.7 Allergy status to serum and vaccine; Z88.8 Allergy status to other drugs, medicaments and biological substances
CPT/HCPCS: 36415; 70450; 70496; 70498; 70551; 71045; 80053; 82525; 82533; 82550; 82553; 82607; 83519; 83550; 84425; 84439; 84443; 84484; 85025; 85027; 85610; 85730; 86140; 86850; 86900; 86901; 87631; 93005; 93041; 93306; 94760; 96372; 97161; 97165; 97530; 99285; G0378; J1650; Q9967

== ENCOUNTER → 2022-01-03 | Outpatient (CLI) | payer MEDICARE, OTHER ==
[~2022-01-03] MED LIST changes: +AMLO1TAB24 PO; +PRESCAP PO
[2022-01-03 09:46] LABS: HEMATOCRIT 44.3 % (36.0-47.0); HEMOGLOBIN 14.3 g/dl (12.0-15.5); MEAN CORPUSCULAR HEMOGLOBIN 29.5 pg (27.0-33.0); MEAN CORPUSCULAR HGB CONC 32.3 g/dl (32.0-36.5); MEAN CORPUSCULAR VOLUME 91.5 fl (80.0-96.0); PLATELET COUNT, AUTOMATED 248 10^3/uL (150-450); RED BLOOD COUNT 4.84 10^6/uL (4.00-5.40); WHITE BLOOD COUNT 6.5 10^3/uL (4.0-10.0)
[2022-01-03 10:22] LABS: C REACTIVE PROTEIN QUANTITATIV < 0.30 MG/DL (0.00-0.30); IRON (FE) 65 UG/DL (50-170); PERCENT SATURATION 18.7 % (13.2-45.0); TOTAL IRON BINDING CAPACITY 347 UG/DL (250-450)
[2022-01-03 10:53] LABS: CORTISOL AM 20.3 UG/DL (4.3-22.4)
== END ==
LOC: M WUC 07:58
PROVIDERS: ATTEND Internal Medicine Hematology
DX: E03.9 Hypothyroidism, unspecified (principal)

== ENCOUNTER → 2022-02-22 | Outpatient (REF) | payer MEDICARE, OTHER ==
[~2022-02-22] MED LIST changes: +AMLO1TAB24 PO; +CLOP75TA99 PO; -PLAV1TAB2 PO; +PRESCAP PO
[2022-02-22 18:10] LABS: APPEARANCE, URINE MANUAL CLEAR (CLEAR); BILIRUBIN, URINE MANUAL NEGATIVE (NEGATIVE); BLOOD URINE MANUAL NEGATIVE (NEGATIVE); COLOR, URINE MANUAL YELLOW (YELLOW); GLUCOSE, URINE (UA) MANUAL 4+(1000 MG/DL) mg/dL (NEGATIVE); KETONE, URINE MANUAL NEGATIVE (NEGATIVE); LEUKOCYTE ESTERASE, URINE MAN NEGATIVE (NEGATIVE); NITRITE, URINE MANUAL NEGATIVE (NEGATIVE); PROTEIN, URINE MANUAL NEGATIVE (NEGATIVE); SPECIFIC GRAVITY,URINE MANUAL 1.015 (1.002-1.035); UROBILINOGEN, URINE MANUAL NORMAL (NORMAL)
== END ==
LOC: M SMT 17:23
PROVIDERS: ATTEND Nurse Practitioner Women's Health
DX: R30.0 Dysuria (principal)

== ENCOUNTER → 2022-03-20 | Outpatient (REF) | payer MEDICARE, OTHER ==
[2022-03-20 19:26] LABS: CREATININE, URINE 43.2 MG/DL
[2022-03-20 19:28] LABS: MALB URINE SIEMENS < 5.0 MG/DL; MAU/CREAT RATIO 11.5 MCG/MG (0.0-30.0)
== END ==
LOC: M LAB REF 16:46
PROVIDERS: ATTEND Nurse Practitioner Family
DX: E11.9 Type 2 diabetes mellitus without complications (principal)

== ENCOUNTER 2022-04-04 18:03 | Emergency (ER) | payer MEDICARE, OTHER ==
[~2022-04-04] VITALS: Ht 162.6 cm; Wt 86.6 kg
[2022-04-04] MEDS ORDERED: GLUCOTRUST PO (18:19)
[2022-04-04] MEDS ORDERED: AMLO1TAB25 (18:19)
[2022-04-04 20:43] VITALS: BP 126/64
== END 2022-04-04 20:45 | disposition home or self-care (01) ==
LOC: M ED 18:03
DX: I10 Essential (primary) hypertension (principal); E11.65 Type 2 diabetes mellitus with hyperglycemia; I25.2 Old myocardial infarction; C50.919 Malignant neoplasm of unspecified site of unspecified female breast; Z88.6 Allergy status to analgesic agent; Z88.8 Allergy status to other drugs, medicaments and biological substances; Z88.7 Allergy status to serum and vaccine; Z91.040 Latex allergy status; Z79.811 Long term (current) use of aromatase inhibitors; Z79.01 Long term (current) use of anticoagulants; Z79.810 Long term (current) use of selective estrogen receptor modulators (SERMs); Z79.899 Other long term (current) drug therapy

== ENCOUNTER 2022-04-06 17:40 | Emergency (ER) | payer MEDICARE, OTHER ==
[~2022-04-06] VITALS: Ht 162.6 cm; Wt 81.8 kg
[2022-04-06 17:40] VITALS: BP 192/92
[~2022-04-06 17:40] MED LIST changes: +AMLO1TAB25; +GLUCOTRUST PO
== END 2022-04-06 20:10 | disposition left against medical advice (07) ==
LOC: M ED 17:40
DX: Z53.21 Procedure and treatment not carried out due to patient leaving prior to being seen by health care provider (principal)

== ENCOUNTER 2022-04-29 16:12 | Emergency (ER) | payer MEDICARE, OTHER ==
[~2022-04-29] VITALS: Ht 162.6 cm; Wt 86.5 kg
[~2022-04-29 16:12] MED LIST changes: -AMLO1TAB25
[2022-04-29] MEDS ORDERED: [UNRECOGNIZED DRUG - OTHER] PO (16:34)
[2022-04-29 21:28] LABS: BASO # 0.1 10^3/uL (0.0-0.2); BASO % 0.7 % (0.0-1.0); EOS # 0.3 10^3/uL (0.0-0.5); EOS % 3.2 % (0.0-3.0); HEMATOCRIT 46.7 % (36.0-47.0); HEMOGLOBIN 15.3 g/dl (12.0-15.5); MEAN CORPUSCULAR HEMOGLOBIN 30.2 pg (27.0-33.0); MEAN CORPUSCULAR HGB CONC 32.8 g/dl (32.0-36.5); MEAN CORPUSCULAR VOLUME 92.1 fl (80.0-96.0); MONO # 1.1 10^3/uL (0.0-0.8); MONO % 13.3 % (2.0-8.0); NEUTROPHILS % 58.3 % (36.0-66.0); PLATELET COUNT, AUTOMATED 242 10^3/uL (150-450); RED BLOOD COUNT 5.07 10^6/uL (4.00-5.40); WHITE BLOOD COUNT 8.5 10^3/uL (4.0-10.0)
[2022-04-29 21:44] LABS: RSV AMPLIFICATION NEGATIVE (NEGATIVE)
[2022-04-29] MEDS ORDERED: FUROSEMIDE 20 MG TAB PO ONE (23:20)
[2022-04-29] MEDS ORDERED: TELMISARTAN 20 MG TAB PO ONE (23:55)
[2022-04-29] MEDS ORDERED: SPIR-10 PO (23:57)
[2022-04-29] MEDS ORDERED: CHLO125TA PO (23:57)
[2022-04-30 00:10] LABS: APPEARANCE, URINE MANUAL CLEAR (CLEAR); COLOR, URINE MANUAL YELLOW (YELLOW)
[2022-04-30 00:12] LABS: BILIRUBIN, URINE MANUAL NEGATIVE (NEGATIVE); BLOOD URINE MANUAL NEGATIVE (NEGATIVE); GLUCOSE, URINE (UA) MANUAL 4+(1000 MG/DL) mg/dL (NEGATIVE); KETONE, URINE MANUAL NEGATIVE (NEGATIVE); LEUKOCYTE ESTERASE, URINE MAN NEGATIVE (NEGATIVE); NITRITE, URINE MANUAL NEGATIVE (NEGATIVE); PROTEIN, URINE MANUAL NEGATIVE (NEGATIVE); UROBILINOGEN, URINE MANUAL NORMAL (NORMAL)
[2022-04-30 01:15] VITALS: BP 164/73
== END 2022-04-30 02:01 | disposition home or self-care (01) ==
LOC: M ED 16:12
DX: I10 Essential (primary) hypertension (principal); I25.2 Old myocardial infarction; E11.9 Type 2 diabetes mellitus without complications; F10.10 Alcohol abuse, uncomplicated; C50.919 Malignant neoplasm of unspecified site of unspecified female breast; Z88.6 Allergy status to analgesic agent; Z88.7 Allergy status to serum and vaccine; Z88.8 Allergy status to other drugs, medicaments and biological substances; Z91.040 Latex allergy status; Z86.73 Personal history of transient ischemic attack (TIA), and cerebral infarction without residual deficits; Z79.811 Long term (current) use of aromatase inhibitors; Z79.02 Long term (current) use of antithrombotics/antiplatelets; Z79.899 Other long term (current) drug therapy

== ENCOUNTER 2022-04-30 03:15 | Emergency (ER) | payer MEDICARE, OTHER ==
[~2022-04-30] VITALS: Ht 162.6 cm; Wt 82.0 kg
[~2022-04-30 03:15] MED LIST changes: +[UNRECOGNIZED DRUG - OTHER] PO
[2022-04-30 03:53] LABS: BASO # 0.1 10^3/uL (0.0-0.2); BASO % 0.5 % (0.0-1.0); EOS # 0.2 10^3/uL (0.0-0.5); EOS % 2.4 % (0.0-3.0); HEMATOCRIT 44.7 % (36.0-47.0); HEMOGLOBIN 14.5 g/dl (12.0-15.5); LYMPH # 1.7 10^3/uL (1.5-5.0); LYMPH % 17.8 % (24.0-44.0); MEAN CORPUSCULAR HEMOGLOBIN 29.7 pg (27.0-33.0); MEAN CORPUSCULAR HGB CONC 32.4 g/dl (32.0-36.5); MEAN CORPUSCULAR VOLUME 91.4 fl (80.0-96.0); MONO % 10.4 % (2.0-8.0); NEUTROPHILS # 6.5 10^3/uL (1.5-8.5); NEUTROPHILS % 68.4 % (36.0-66.0); PLATELET COUNT, AUTOMATED 246 10^3/uL (150-450); RED BLOOD COUNT 4.89 10^6/uL (4.00-5.40); WHITE BLOOD COUNT 9.5 10^3/uL (4.0-10.0)
[2022-04-30 04:24] LABS: CK-MB VALUE MASS < 1.0 NG/ML (<3.6)
[2022-04-30 04:25] LABS: BLOOD UREA NITROGEN 17 MG/DL (9-23); CALCIUM LEVEL 9.2 MG/DL (8.3-10.6); CARBON DIOXIDE LEVEL 22 MMOL/L (20-31); CHLORIDE LEVEL 104 MMOL/L (98-107); CREATININE FOR GFR 0.95 MG/DL (0.55-1.30); GLOMERULAR FILTRATION RATE > 60.0 (>39); GLUCOSE, FASTING 222 MG/DL (74-106); POTASSIUM SERUM 4.3 MMOL/L (3.5-5.1); SODIUM LEVEL 138 MMOL/L (136-145)
[2022-04-30 04:27] LABS: CPK CREATINE PHOSPHOKINASE 63 U/L (34-145); MB/CK RELATIVE INDEX 1.58 (< OR =4)
[2022-04-30 05:24] VITALS: BP 131/60
== END 2022-04-30 05:31 | disposition left against medical advice (07) ==
LOC: M ED 03:15
DX: Z53.21 Procedure and treatment not carried out due to patient leaving prior to being seen by health care provider (principal)

== ENCOUNTER → 2022-05-01 | Outpatient (CLI) | payer MEDICARE, OTHER | LOC: M PLALAB 16:03 | PROVIDERS: ATTEND Internal Medicine Hematology | DX: I10 Essential (primary) hypertension (principal) ==

== ENCOUNTER → 2022-05-03 | Outpatient (REF) | payer MEDICARE, OTHER ==
[2022-05-08 23:10] LABS: DOPAMINE 455 ug/24 hr (0-510); DOPAMINE TOTAL URINE 246 ug/L (Undefined); EPINEPHRINE 2 ug/24 hr (0-20); EPINEPHRINE TOTAL URINE 1 ug/L (Undefined); METANEPHRINE TOTAL URINE 22 ug/L (Undefined); METANEPHRINE URINE 41 ug/24 hr (36-209); NOREPINEPHRINE 56 ug/24 hr (0-135); NOREPINEPHRINE TOTAL URINE 30 ug/L (Undefined); NORMETANEPHRINE TOTAL URINE 205 ug/L (Undefined); NORMETANEPHRINE URINE 379 ug/24 hr (131-612)
== END ==
LOC: M LAB REF 10:19
PROVIDERS: ATTEND Physician Assistant
DX: I11.9 Hypertensive heart disease without heart failure (principal)

== ENCOUNTER 2022-05-17 16:56 | Inpatient (IN) | payer MEDICARE, OTHER ==
[~2022-05-17] VITALS: Ht 162.6 cm; Wt 85.0 kg
[2022-05-17 19:05] LABS: BASO % 0.1 % (0.0-1.0); EOS # 0.1 10^3/uL (0.0-0.5); EOS % 0.5 % (0.0-3.0); HEMATOCRIT 48.8 % (36.0-47.0); HEMOGLOBIN 15.8 g/dl (12.0-15.5); LYMPH # 0.7 10^3/uL (1.5-5.0); LYMPH % 5.3 % (24.0-44.0); MEAN CORPUSCULAR HEMOGLOBIN 29.9 pg (27.0-33.0); MEAN CORPUSCULAR HGB CONC 32.4 g/dl (32.0-36.5); MEAN CORPUSCULAR VOLUME 92.2 fl (80.0-96.0); MONO # 0.9 10^3/uL (0.0-0.8); MONO % 6.3 % (2.0-8.0); NEUTROPHILS # 12.1 10^3/uL (1.5-8.5); NEUTROPHILS % 87.4 % (36.0-66.0); PLATELET COUNT, AUTOMATED 237 10^3/uL (150-450); RED BLOOD COUNT 5.29 10^6/uL (4.00-5.40); WHITE BLOOD COUNT 13.9 10^3/uL (4.0-10.0)
[2022-05-17 19:21] LABS: LIPASE 37 U/L (12-53)
[2022-05-17 19:23] LABS: ALBUMIN 3.9 G/DL (3.2-5.2); ALKALINE PHOSPHATASE 211 U/L (46-116); ALT/SGPT 82 U/L (7.0-40); AST/SGOT 66 U/L (<34); BILIRUBIN,DIRECT 0.2 MG/DL (<0.4); BILIRUBIN,TOTAL 0.9 MG/DL (0.3-1.2); BLOOD UREA NITROGEN 15 MG/DL (9-23); CALCIUM LEVEL 8.8 MG/DL (8.3-10.6); CARBON DIOXIDE LEVEL 24 MMOL/L (20-31); CHLORIDE LEVEL 103 MMOL/L (98-107); CK-MB VALUE MASS < 1.0 NG/ML (<3.6); CREATININE FOR GFR 0.75 MG/DL (0.55-1.30); GLOMERULAR FILTRATION RATE > 60.0 (>39); GLUCOSE, FASTING 138 MG/DL (74-106); POTASSIUM SERUM 4.4 MMOL/L (3.5-5.1); SODIUM LEVEL 138 MMOL/L (136-145)
[2022-05-17 19:25] LABS: FREE T4 0.95 NG/DL (0.89-1.76)
[2022-05-17 19:26] LABS: CPK CREATINE PHOSPHOKINASE 96 U/L (34-145); MB/CK RELATIVE INDEX 1.04 (< OR =4); THYROID STIMULATING HORMONE 8.616 uIU/ML (0.55-4.78)
[2022-05-17] MEDS ORDERED: ISOVUE-370 76% 100ML VIAL As Ordered ONE (19:37)
[2022-05-17] MEDS ORDERED: LABETALOL 100MG/20ML VIAL IV STA (20:25)
[2022-05-17] MEDS ORDERED: TELMISARTAN 20 MG TAB PO SCH (21:00)
[2022-05-17] MEDS ORDERED: INSULIN LISPRO (NovoLOG) PER UNIT SC SCH (21:00)
[2022-05-17] MEDS ORDERED: ATORVASTATIN 20 MG TAB PO SCH (21:00)
[2022-05-17] MEDS ORDERED: DIAZ5TAB PO (21:08)
[2022-05-17] MEDS ORDERED: HOME MED LIST COMPLETE! XX SCH (21:10)
[2022-05-17] MEDS ORDERED: DEXTROSE 50% 50ML SYRINGE IV PRN (21:30)
[2022-05-17] MEDS ORDERED: LABETALOL 100MG TAB PO PRN (21:30)
[2022-05-17] MEDS ORDERED: ACETAMINOPHEN TAB 650MG DOSE (2X325MG) PO PRN (21:30)
[2022-05-17] MEDS ORDERED: GLUCAGON INJ 1MG VIAL SC PRN (21:30)
[2022-05-17] MEDS ORDERED: diazePAM 5MG TABLET PO PRN (21:30)
[2022-05-17] MEDS ORDERED: GLUCOSE 4GM CHEW TABLET PO PRN (21:30)
[2022-05-17] MEDS ORDERED: NS 1,000 ML IV SCH (21:40)
[2022-05-17] MEDS ORDERED: PILL CUTTER 1 EACH XX PRN (21:50)
[2022-05-17] MEDS ORDERED: CLOPIDOGREL 75 MG TAB PO SCH (22:00)
[2022-05-17 22:26] LABS: RSV AMPLIFICATION NEGATIVE (NEGATIVE)
[2022-05-18] MEDS: UNRESOLVED PATIENT OWN MED ORDER XX SCH (00:01)
[2022-05-18] MEDS: OCUVITE 1 TAB PO SCH ×2 (00:39→10:17)
[2022-05-18] MEDS: CARVedilol 6.25 MG TAB PO SCH ×2 (00:40→10:15)
[2022-05-18 04:10] VITALS: BP 128/84
[2022-05-18 05:50] LABS: HEMATOCRIT 45.4 % (36.0-47.0); HEMOGLOBIN 14.8 g/dl (12.0-15.5); MEAN CORPUSCULAR HEMOGLOBIN 29.7 pg (27.0-33.0); MEAN CORPUSCULAR HGB CONC 32.6 g/dl (32.0-36.5); MEAN CORPUSCULAR VOLUME 91.2 fl (80.0-96.0); PLATELET COUNT, AUTOMATED 233 10^3/uL (150-450); RED BLOOD COUNT 4.98 10^6/uL (4.00-5.40); WHITE BLOOD COUNT 8.8 10^3/uL (4.0-10.0)
[2022-05-18 06:00] VITALS: BP 130/87
[2022-05-18 06:10] LABS: MAGNESIUM LEVEL 1.9 MG/DL (1.8-2.4)
[2022-05-18 06:27] LABS: ALBUMIN 3.6 G/DL (3.2-5.2); ALKALINE PHOSPHATASE 204 U/L (46-116); ALT/SGPT 104 U/L (7.0-40); AST/SGOT 68 U/L (<34); BILIRUBIN,TOTAL 0.9 MG/DL (0.3-1.2); BLOOD UREA NITROGEN 16 MG/DL (9-23); CALCIUM LEVEL 8.3 MG/DL (8.3-10.6); CARBON DIOXIDE LEVEL 23 MMOL/L (20-31); CHLORIDE LEVEL 105 MMOL/L (98-107); CREATININE FOR GFR 0.74 MG/DL (0.55-1.30); GLOMERULAR FILTRATION RATE > 60.0 (>39); GLUCOSE, FASTING 128 MG/DL (74-106); POTASSIUM SERUM 3.7 MMOL/L (3.5-5.1); SODIUM LEVEL 138 MMOL/L (136-145); TOTAL PROTEIN 6.5 G/DL (5.7-8.2)
[2022-05-18 07:08] LABS: HEMOGLOBIN A1c 7.6 % (4.0-6.0)
[2022-05-18] MEDS ORDERED: INSULIN LISPRO (NovoLOG) PER UNIT SC SCH (07:30)
[2022-05-18] MEDS ORDERED: ENOXAPARIN 40MG/0.4ML SYRINGE (J1650 PER 10MG) SC SCH (09:00)
[2022-05-18] MEDS ORDERED: MULTIVITAMINS/MINERALS THERAP 1 TAB PO SCH (09:00)
[2022-05-18] MEDS ORDERED: VITAMIN D 1,000 INTERNATIONAL UNITS TABLET PO SCH (09:00)
[2022-05-18] MEDS ORDERED: NEURONTIN 400 MG PO SCH (09:00)
[2022-05-18] MEDS ORDERED: AMLO1TAB25 PO (09:27)
[2022-05-18 10:15] VITALS: BP 130/87
[2022-05-18] MEDS ORDERED: FAMOTIDINE 20 MG TAB PO SCH (12:00)
== END 2022-05-18 12:21 | disposition home or self-care (01) | DRG 305 ==
LOC: M ED 16:56 → M ED INP 21:28 → M MSPAV 21:28
PROVIDERS: ADMIT Family Medicine; ATTEND Internal Medicine
DX: I16.0 Hypertensive urgency (principal); F44.6 Conversion disorder with sensory symptom or deficit; G43.909 Migraine, unspecified, not intractable, without status migrainosus; E11.43 Type 2 diabetes mellitus with diabetic autonomic (poly)neuropathy; I25.10 Atherosclerotic heart disease of native coronary artery without angina pectoris; I10 Essential (primary) hypertension; Z86.73 Personal history of transient ischemic attack (TIA), and cerebral infarction without residual deficits; K21.9 Gastro-esophageal reflux disease without esophagitis; G47.33 Obstructive sleep apnea (adult) (pediatric); G25.0 Essential tremor; E78.5 Hyperlipidemia, unspecified; Z85.3 Personal history of malignant neoplasm of breast; K44.9 Diaphragmatic hernia without obstruction or gangrene; M79.7 Fibromyalgia; M19.90 Unspecified osteoarthritis, unspecified site; F41.9 Anxiety disorder, unspecified; H93.19 Tinnitus, unspecified ear; Z98.41 Cataract extraction status, right eye; Z98.42 Cataract extraction status, left eye; Z90.79 Acquired absence of other genital organ(s); Z92.3 Personal history of irradiation; Z90.49 Acquired absence of other specified parts of digestive tract; Z90.13 Acquired absence of bilateral breasts and nipples; Z20.822 Contact with and (suspected) exposure to COVID-19; Z79.899 Other long term (current) drug therapy; Z88.6 Allergy status to analgesic agent; Z88.8 Allergy status to other drugs, medicaments and biological substances; Z88.7 Allergy status to serum and vaccine; Z91.040 Latex allergy status; Z91.018 Allergy to other foods; Z91.048 Other nonmedicinal substance allergy status

== ENCOUNTER → 2022-05-19 | Outpatient (REF) | payer MEDICARE, OTHER ==
[~2022-05-19] MED LIST changes: +DIAZ5TAB PO
== END ==
LOC: M WUC 17:10
PROVIDERS: ATTEND Physician Assistant
DX: R35.0 Frequency of micturition (principal)

== ENCOUNTER → 2022-05-25 | Outpatient (CLI) | payer MEDICARE, OTHER ==
[2022-05-25 14:27] LABS: ALBUMIN 3.7 G/DL (3.2-5.2); ALKALINE PHOSPHATASE 165 U/L (46-116); ALT/SGPT 41 U/L (7.0-40); AST/SGOT 25 U/L (<34); BILIRUBIN,DIRECT 0.2 MG/DL (<0.4); BILIRUBIN,TOTAL 0.8 MG/DL (0.3-1.2); BLOOD UREA NITROGEN 12 MG/DL (9-23); CALCIUM LEVEL 9.4 MG/DL (8.3-10.6); CARBON DIOXIDE LEVEL 30 MMOL/L (20-31); CHLORIDE LEVEL 103 MMOL/L (98-107); CREATININE FOR GFR 0.84 MG/DL (0.55-1.30); GLOMERULAR FILTRATION RATE > 60.0 (>39); GLUCOSE, FASTING 225 MG/DL (74-106); POTASSIUM SERUM 4.1 MMOL/L (3.5-5.1); SODIUM LEVEL 141 MMOL/L (136-145); TOTAL PROTEIN 6.7 G/DL (5.7-8.2)
[2022-05-25 14:34] LABS: HEPATITIS B SURFACE ANTIBODY NEGATIVE (POSITIVE)
[2022-05-25 14:46] LABS: HEPATITIS B SURFACE ANTIGEN NEGATIVE (NEGATIVE)
[2022-05-25 15:06] LABS: HEPATITIS C VIRUS ABY INDEX < 0.0 INDEX (<0.8)
[2022-05-25 15:07] LABS: HEPATITIS B CORE ANTIBODY IGM NEGATIVE (NEGATIVE)
== END ==
LOC: M PLALAB 11:43
PROVIDERS: ATTEND Internal Medicine Hematology
DX: R74.8 Abnormal levels of other serum enzymes (principal)

== ENCOUNTER 2022-06-01 06:14 | Emergency (ER) | payer MEDICARE, OTHER ==
[~2022-06-01] VITALS: Ht 162.6 cm; Wt 85.4 kg
[2022-06-01 06:14] VITALS: BP 168/72
== END 2022-06-01 10:32 | disposition left against medical advice (07) ==
LOC: M ED 06:14
DX: Z53.21 Procedure and treatment not carried out due to patient leaving prior to being seen by health care provider (principal)

== ENCOUNTER → 2022-07-31 | Outpatient (CLI) | payer MEDICARE, OTHER | LOC: M WHC 11:41 | PROVIDERS: ATTEND Internal Medicine Hematology | DX: M81.0 Age-related osteoporosis without current pathological fracture (principal); R07.81 Pleurodynia ==

== ENCOUNTER → 2022-07-31 | Outpatient (CLI) | payer MEDICARE, OTHER | LOC: M PLAIMG 12:07 | PROVIDERS: ATTEND Internal Medicine Hematology | DX: R07.81 Pleurodynia (principal) ==

== ENCOUNTER → 2022-08-09 | Outpatient (CLI) | payer MEDICARE, OTHER | LOC: M WHC 10:53 | PROVIDERS: ATTEND Internal Medicine Hematology | DX: M81.0 Age-related osteoporosis without current pathological fracture (principal); M85.851 Other specified disorders of bone density and structure, right thigh; M85.852 Other specified disorders of bone density and structure, left thigh ==

== ENCOUNTER 2022-09-25 06:34 | Emergency (ER) | payer MEDICARE, OTHER ==
[~2022-09-25] VITALS: Ht 162.6 cm; Wt 87.1 kg
[2022-09-25] MEDS ORDERED: ALPRAZolam 0.5 MG TAB PO ONE (09:15)
[2022-09-25] MEDS ORDERED: HYDR-3363 PO (10:19)
[2022-09-25 10:27] VITALS: BP 141/66
== END 2022-09-25 10:29 | disposition home or self-care (01) ==
LOC: M ED 06:34
DX: I10 Essential (primary) hypertension (principal); F41.9 Anxiety disorder, unspecified; K21.9 Gastro-esophageal reflux disease without esophagitis; E11.9 Type 2 diabetes mellitus without complications; Z86.73 Personal history of transient ischemic attack (TIA), and cerebral infarction without residual deficits; Z86.79 Personal history of other diseases of the circulatory system; Z88.6 Allergy status to analgesic agent; Z88.7 Allergy status to serum and vaccine; Z88.8 Allergy status to other drugs, medicaments and biological substances; Z91.040 Latex allergy status; Z79.02 Long term (current) use of antithrombotics/antiplatelets; Z79.891 Long term (current) use of opiate analgesic; Z79.810 Long term (current) use of selective estrogen receptor modulators (SERMs); Z79.899 Other long term (current) drug therapy

== ENCOUNTER → 2022-10-08 | Outpatient (CLI) | payer MEDICARE, OTHER ==
[~2022-10-08] MED LIST changes: +HYDR-3363 PO
[2022-10-08 18:54] LABS: HEMATOCRIT 46.3 % (36.0-47.0); HEMOGLOBIN 15.3 g/dl (12.0-15.5); MEAN CORPUSCULAR HEMOGLOBIN 30.4 pg (27.0-33.0); MEAN CORPUSCULAR VOLUME 91.9 fl (80.0-96.0); PLATELET COUNT, AUTOMATED 246 10^3/uL (150-450); RED BLOOD COUNT 5.04 10^6/uL (4.00-5.40); WHITE BLOOD COUNT 8.2 10^3/uL (4.0-10.0)
[2022-10-08 19:21] LABS: ALKALINE PHOSPHATASE 233 U/L (46-116); ALT/SGPT 62 U/L (7.0-40); AST/SGOT 30 U/L (<34); BILIRUBIN,TOTAL 0.7 MG/DL (0.3-1.2); BLOOD UREA NITROGEN 15 MG/DL (9-23); CALCIUM LEVEL 9.1 MG/DL (8.3-10.6); CARBON DIOXIDE LEVEL 27 MMOL/L (20-31); CHLORIDE LEVEL 103 MMOL/L (98-107); CHOLESTEROL LEVEL 189 MG/DL (<200); CHOLESTEROL RISK RATIO 4.21 (<5); CREATININE FOR GFR 0.89 MG/DL (0.55-1.30); GLOMERULAR FILTRATION RATE > 60.0 (>39); GLUCOSE, FASTING 189 MG/DL (74-106); HDL CHOLESTEROL 44.8 MG/DL (>40); NON-HDL-C 144.2 MG/DL; POTASSIUM SERUM 4.2 MMOL/L (3.5-5.1); SODIUM LEVEL 139 MMOL/L (136-145); TOTAL PROTEIN 6.8 G/DL (5.7-8.2); TRIGLYCERIDES LEVEL 510 MG/DL (<150)
[2022-10-08 19:22] LABS: C REACTIVE PROTEIN QUANTITATIV < 0.40 MG/DL (<1.0); CREATININE, URINE 47.3 MG/DL; MALB URINE SIEMENS < 3.0 MG/L; MAU/CREAT RATIO 6.3 MCG/MG (0.0-30.0)
[2022-10-08 19:26] LABS: THYROID STIMULATING HORMONE 2.906 uIU/ML (0.55-4.78); VITAMIN B12 LEVEL 419 PG/ML (211-911)
[2022-10-08 19:27] LABS: FREE T4 0.92 NG/DL (0.89-1.76)
[2022-10-08 20:18] LABS: HEMOGLOBIN A1c 7.8 % (4.0-6.0)
== END ==
LOC: M PLALAB 16:37
PROVIDERS: ATTEND Internal Medicine Hematology
DX: E11.311 Type 2 diabetes mellitus with unspecified diabetic retinopathy with macular edema (principal); Z79.899 Other long term (current) drug therapy

== ENCOUNTER 2022-10-13 14:43 | Emergency (ER) | payer MEDICARE, OTHER ==
[~2022-10-13] VITALS: Ht 165.1 cm; Wt 86.1 kg
[2022-10-13 14:44] VITALS: TEMP 97.2; O2SAT 97
[2022-10-13] MEDS ORDERED: NS 1,000 ML IV ONE (16:20)
[2022-10-13 16:56] LABS: BASO % 0.5 % (0.0-1.0); EOS # 0.2 10^3/uL (0.0-0.5); EOS % 1.8 % (0.0-3.0); HEMATOCRIT 47.1 % (36.0-47.0); HEMOGLOBIN 15.6 g/dl (12.0-15.5); LYMPH # 1.3 10^3/uL (1.5-5.0); LYMPH % 15.5 % (24.0-44.0); MEAN CORPUSCULAR HEMOGLOBIN 29.8 pg (27.0-33.0); MEAN CORPUSCULAR HGB CONC 33.1 g/dl (32.0-36.5); MEAN CORPUSCULAR VOLUME 89.9 fl (80.0-96.0); MONO % 11.5 % (2.0-8.0); NEUTROPHILS # 5.9 10^3/uL (1.5-8.5); NEUTROPHILS % 70.1 % (36.0-66.0); PLATELET COUNT, AUTOMATED 258 10^3/uL (150-450); RED BLOOD COUNT 5.24 10^6/uL (4.00-5.40); WHITE BLOOD COUNT 8.4 10^3/uL (4.0-10.0)
[2022-10-13 17:26] LABS: BLOOD UREA NITROGEN 16 MG/DL (9-23); CALCIUM LEVEL 10.4 MG/DL (8.3-10.6); CARBON DIOXIDE LEVEL 26 MMOL/L (20-31); CHLORIDE LEVEL 105 MMOL/L (98-107); CK-MB VALUE MASS < 1.0 NG/ML (<3.6); CREATININE FOR GFR 0.78 MG/DL (0.55-1.30); GLOMERULAR FILTRATION RATE > 60.0 (>39); GLUCOSE, FASTING 184 MG/DL (74-106); POTASSIUM SERUM 4.4 MMOL/L (3.5-5.1); SODIUM LEVEL 138 MMOL/L (136-145)
[2022-10-13 17:30] LABS: FREE T4 0.89 NG/DL (0.89-1.76); THYROID STIMULATING HORMONE 2.152 uIU/ML (0.55-4.78)
[2022-10-13 17:31] LABS: CPK CREATINE PHOSPHOKINASE 86 U/L (34-145); MB/CK RELATIVE INDEX 1.16 (< OR =4)
[2022-10-13 18:15] VITALS: BP 197/91
[2022-10-13] MEDS ORDERED: GABAPENTIN 400MG CAP PO ONE (18:15)
[2022-10-13] MEDS ORDERED: CARVedilol 3.125 MG TAB PO ONE (18:30)
[2022-10-13 18:42] LABS: CK-MB VALUE MASS < 1.0 NG/ML (<3.6)
[2022-10-13 19:01] LABS: CPK CREATINE PHOSPHOKINASE 83 U/L (34-145)
== END 2022-10-13 19:17 | disposition home or self-care (01) ==
LOC: M ED 14:43
DX: R03.1 Nonspecific low blood-pressure reading (principal); E11.9 Type 2 diabetes mellitus without complications; I25.2 Old myocardial infarction; I10 Essential (primary) hypertension; G40.909 Epilepsy, unspecified, not intractable, without status epilepticus; G43.909 Migraine, unspecified, not intractable, without status migrainosus; Z86.73 Personal history of transient ischemic attack (TIA), and cerebral infarction without residual deficits; Z88.6 Allergy status to analgesic agent; Z88.7 Allergy status to serum and vaccine; Z88.8 Allergy status to other drugs, medicaments and biological substances; Z91.040 Latex allergy status; Z91.09 Other allergy status, other than to drugs and biological substances; Z79.02 Long term (current) use of antithrombotics/antiplatelets; Z79.810 Long term (current) use of selective estrogen receptor modulators (SERMs); Z79.899 Other long term (current) drug therapy

== ENCOUNTER → 2022-10-25 | Outpatient (REF) | payer MEDICARE, OTHER | LOC: M WUC 19:27 | PROVIDERS: ATTEND Student in an Organized Health Care Education/Training Program | DX: R30.0 Dysuria (principal) ==

== ENCOUNTER 2022-11-02 23:44 | Emergency (ER) | payer MEDICARE, OTHER ==
[~2022-11-02] VITALS: Ht 165.1 cm; Wt 85.9 kg
[2022-11-03 00:33] LABS: INR 0.85; PARTIAL THROMBOPLASTIN TIME 27.2 SECONDS (24.8-34.2); PROTHROMBIN TIME 11.8 SECONDS (12.5-14.5)
[2022-11-03 00:46] LABS: ALBUMIN 3.8 G/DL (3.2-5.2); ALKALINE PHOSPHATASE 215 U/L (46-116); ALT/SGPT 63 U/L (7.0-40); AST/SGOT 28 U/L (<34); BILIRUBIN,TOTAL 0.8 MG/DL (0.3-1.2); BLOOD UREA NITROGEN 17 MG/DL (9-23); CALCIUM LEVEL 9.3 MG/DL (8.3-10.6); CARBON DIOXIDE LEVEL 27 MMOL/L (20-31); CHLORIDE LEVEL 104 MMOL/L (98-107); CREATININE FOR GFR 0.78 MG/DL (0.55-1.30); GLOMERULAR FILTRATION RATE > 60.0 (>39); GLUCOSE, FASTING 169 MG/DL (74-106); SODIUM LEVEL 139 MMOL/L (136-145); TOTAL PROTEIN 6.7 G/DL (5.7-8.2)
[2022-11-03 00:49] LABS: CPK CREATINE PHOSPHOKINASE 187 U/L (34-145); MB/CK RELATIVE INDEX 0.53 (< OR =4)
[2022-11-03 00:53] LABS: BASO % 0.6 % (0.0-1.0); EOS # 0.1 10^3/uL (0.0-0.5); EOS % 2.1 % (0.0-3.0); HEMATOCRIT 45.1 % (36.0-47.0); HEMOGLOBIN 15.1 g/dl (12.0-15.5); LYMPH # 1.7 10^3/uL (1.5-5.0); LYMPH % 26.9 % (24.0-44.0); MEAN CORPUSCULAR HEMOGLOBIN 30.3 pg (27.0-33.0); MEAN CORPUSCULAR HGB CONC 33.5 g/dl (32.0-36.5); MEAN CORPUSCULAR VOLUME 90.4 fl (80.0-96.0); MONO # 0.8 10^3/uL (0.0-0.8); NEUTROPHILS # 3.6 10^3/uL (1.5-8.5); NEUTROPHILS % 57.6 % (36.0-66.0); PLATELET COUNT, AUTOMATED 233 10^3/uL (150-450); RED BLOOD COUNT 4.99 10^6/uL (4.00-5.40); WHITE BLOOD COUNT 6.3 10^3/uL (4.0-10.0)
[2022-11-03 05:17] VITALS: BP 120/70; TEMP 97.4; O2SAT 98
== END 2022-11-03 06:55 | disposition left against medical advice (07) ==
LOC: M ED 23:44
DX: Z53.21 Procedure and treatment not carried out due to patient leaving prior to being seen by health care provider (principal)

== ENCOUNTER 2022-11-03 09:52 | Emergency (ER) | payer MEDICARE, OTHER ==
[~2022-11-03] VITALS: Ht 165.1 cm; Wt 86.4 kg
[2022-11-03 11:15] VITALS: BP 138/63
[2022-11-03 11:23] LABS: BASO # 0.1 10^3/uL (0.0-0.2); BASO % 0.6 % (0.0-1.0); EOS # 0.1 10^3/uL (0.0-0.5); EOS % 1.5 % (0.0-3.0); HEMOGLOBIN 15.1 g/dl (12.0-15.5); LYMPH # 1.4 10^3/uL (1.5-5.0); LYMPH % 16.2 % (24.0-44.0); MEAN CORPUSCULAR HEMOGLOBIN 29.4 pg (27.0-33.0); MEAN CORPUSCULAR HGB CONC 32.1 g/dl (32.0-36.5); MEAN CORPUSCULAR VOLUME 91.6 fl (80.0-96.0); MONO # 0.9 10^3/uL (0.0-0.8); MONO % 10.8 % (2.0-8.0); NEUTROPHILS # 6.1 10^3/uL (1.5-8.5); NEUTROPHILS % 70.6 % (36.0-66.0); PLATELET COUNT, AUTOMATED 248 10^3/uL (150-450); RED BLOOD COUNT 5.13 10^6/uL (4.00-5.40); WHITE BLOOD COUNT 8.6 10^3/uL (4.0-10.0)
[2022-11-03 11:34] LABS: APPEARANCE, URINE HAZY (CLEAR); BACTERIA, URINE AUTO NEGATIVE (NEGATIVE); BILIRUBIN, URINE AUTO NEGATIVE (NEGATIVE); BLOOD, URINE BLOOD NEGATIVE (NEGATIVE); COLOR, URINE YELLOW (YELLOW); GLUCOSE, URINE (UA) AUTO 3+ mg/dL (NEGATIVE); KETONE, URINE AUTO NEGATIVE (NEGATIVE); LEUKOCYTE ESTERASE, URINE AUTO NEGATIVE (NEGATIVE); MUCUS, URINE SMALL (NEGATIVE); NITRITE, URINE AUTO NEGATIVE (NEGATIVE); PROTEIN, URINE AUTO NEGATIVE (NEGATIVE); RBC, URINE AUTO 1 /HPF (0-3); SPECIFIC GRAVITY URINE AUTO 1.029 (1.002-1.035); SQUAMOUS EPITHELIAL CELL UR AU 1 /HPF (0-6); UROBILINOGEN, URINE AUTO 0.2 mg/dL (0.0-2.0); WBC, URINE AUTO 1 /HPF (0-3)
[2022-11-03 11:48] LABS: ALKALINE PHOSPHATASE 230 U/L (46-116); ALT/SGPT 75 U/L (7.0-40); AST/SGOT 36 U/L (<34); BILIRUBIN,DIRECT 0.2 MG/DL (<0.4); BILIRUBIN,TOTAL 0.8 MG/DL (0.3-1.2); BLOOD UREA NITROGEN 17 MG/DL (9-23); CALCIUM LEVEL 9.6 MG/DL (8.3-10.6); CARBON DIOXIDE LEVEL 26 MMOL/L (20-31); CHLORIDE LEVEL 104 MMOL/L (98-107); CREATININE FOR GFR 0.78 MG/DL (0.55-1.30); GLOMERULAR FILTRATION RATE > 60.0 (>39); GLUCOSE, FASTING 179 MG/DL (74-106); SODIUM LEVEL 140 MMOL/L (136-145)
[2022-11-03 12:28] VITALS: TEMP 96.7
[2022-11-03 12:37] VITALS: O2SAT 97
== END 2022-11-03 12:42 | disposition home or self-care (01) ==
LOC: M ED 09:52
DX: R03.0 Elevated blood-pressure reading, without diagnosis of hypertension (principal); M79.7 Fibromyalgia; F41.9 Anxiety disorder, unspecified; Z79.01 Long term (current) use of anticoagulants; Z90.13 Acquired absence of bilateral breasts and nipples; Z86.79 Personal history of other diseases of the circulatory system; Z88.5 Allergy status to narcotic agent; Z88.6 Allergy status to analgesic agent; Z88.7 Allergy status to serum and vaccine; Z91.048 Other nonmedicinal substance allergy status; Z91.040 Latex allergy status; Z79.02 Long term (current) use of antithrombotics/antiplatelets; Z79.810 Long term (current) use of selective estrogen receptor modulators (SERMs); Z79.899 Other long term (current) drug therapy

== ENCOUNTER 2022-11-04 19:33 | Emergency (ER) | payer MEDICARE, OTHER ==
[~2022-11-04] VITALS: Ht 162.6 cm; Wt 86.4 kg
[2022-11-04 21:19] LABS: BASO % 0.5 % (0.0-1.0); EOS # 0.1 10^3/uL (0.0-0.5); EOS % 2.1 % (0.0-3.0); HEMATOCRIT 45.8 % (36.0-47.0); HEMOGLOBIN 14.9 g/dl (12.0-15.5); LYMPH # 1.3 10^3/uL (1.5-5.0); LYMPH % 19.3 % (24.0-44.0); MEAN CORPUSCULAR HEMOGLOBIN 29.4 pg (27.0-33.0); MEAN CORPUSCULAR HGB CONC 32.5 g/dl (32.0-36.5); MEAN CORPUSCULAR VOLUME 90.3 fl (80.0-96.0); MONO # 0.7 10^3/uL (0.0-0.8); MONO % 11.3 % (2.0-8.0); NEUTROPHILS # 4.3 10^3/uL (1.5-8.5); NEUTROPHILS % 66.5 % (36.0-66.0); PLATELET COUNT, AUTOMATED 228 10^3/uL (150-450); RED BLOOD COUNT 5.07 10^6/uL (4.00-5.40); WHITE BLOOD COUNT 6.5 10^3/uL (4.0-10.0)
[2022-11-04 21:42] LABS: ALKALINE PHOSPHATASE 234 U/L (46-116); ALT/SGPT 73 U/L (7.0-40); AST/SGOT 33 U/L (<34); BILIRUBIN,DIRECT 0.2 MG/DL (<0.4); BILIRUBIN,TOTAL 0.8 MG/DL (0.3-1.2); BLOOD UREA NITROGEN 15 MG/DL (9-23); CALCIUM LEVEL 9.2 MG/DL (8.3-10.6); CARBON DIOXIDE LEVEL 26 MMOL/L (20-31); CHLORIDE LEVEL 105 MMOL/L (98-107); CK-MB VALUE MASS < 1.0 NG/ML (<3.6); CREATININE FOR GFR 0.87 MG/DL (0.55-1.30); GLOMERULAR FILTRATION RATE > 60.0 (>39); GLUCOSE, FASTING 164 MG/DL (74-106); POTASSIUM SERUM 4.3 MMOL/L (3.5-5.1); SODIUM LEVEL 140 MMOL/L (136-145)
[2022-11-04 21:44] LABS: THYROID STIMULATING HORMONE 3.154 uIU/ML (0.55-4.78)
[2022-11-04 21:45] LABS: CPK CREATINE PHOSPHOKINASE 141 U/L (34-145)
[2022-11-04 22:47] LABS: RSV AMPLIFICATION NEGATIVE (NEGATIVE)
[2022-11-04 22:48] LABS: CK-MB VALUE MASS < 1.0 NG/ML (<3.6); CPK CREATINE PHOSPHOKINASE 120 U/L (34-145); MB/CK RELATIVE INDEX 0.83 (< OR =4)
[2022-11-05] VITALS: BP 115/58; TEMP 98.8; O2SAT 93
== END 2022-11-05 00:13 | disposition home or self-care (01) ==
LOC: M ED 19:33
DX: I10 Essential (primary) hypertension (principal); I25.2 Old myocardial infarction; E11.9 Type 2 diabetes mellitus without complications; G40.909 Epilepsy, unspecified, not intractable, without status epilepticus; Z88.6 Allergy status to analgesic agent; Z88.8 Allergy status to other drugs, medicaments and biological substances; Z91.040 Latex allergy status; Z91.09 Other allergy status, other than to drugs and biological substances; Z79.891 Long term (current) use of opiate analgesic; Z79.899 Other long term (current) drug therapy

== ENCOUNTER 2022-11-12 19:07 | Emergency (ER) | payer MEDICARE, OTHER ==
[~2022-11-12] VITALS: Ht 165.1 cm; Wt 85.3 kg
[~2022-11-12 19:07] MED LIST changes: +SYST1SOL4 OP
[2022-11-12 21:02] VITALS: TEMP 98.8
[2022-11-12 21:08] LABS: BASO # 0.1 10^3/uL (0.0-0.2); BASO % 0.8 % (0.0-1.0); EOS # 0.1 10^3/uL (0.0-0.5); EOS % 1.8 % (0.0-3.0); HEMATOCRIT 44.4 % (36.0-47.0); HEMOGLOBIN 14.6 g/dl (12.0-15.5); LYMPH # 1.7 10^3/uL (1.5-5.0); LYMPH % 20.9 % (24.0-44.0); MEAN CORPUSCULAR HEMOGLOBIN 29.9 pg (27.0-33.0); MEAN CORPUSCULAR HGB CONC 32.9 g/dl (32.0-36.5); MONO # 1.1 10^3/uL (0.0-0.8); MONO % 13.3 % (2.0-8.0); NEUTROPHILS % 62.6 % (36.0-66.0); PLATELET COUNT, AUTOMATED 251 10^3/uL (150-450); RED BLOOD COUNT 4.88 10^6/uL (4.00-5.40)
[2022-11-12] MEDS ORDERED: LABETALOL 100MG TAB PO ONE (21:10)
[2022-11-12 21:18] VITALS: BP 177/74
[2022-11-12 21:24] LABS: CK-MB VALUE MASS < 1.0 NG/ML (<3.6)
[2022-11-12 21:26] LABS: ALBUMIN 3.8 G/DL (3.2-5.2); ALKALINE PHOSPHATASE 230 U/L (46-116); ALT/SGPT 68 U/L (7.0-40); AST/SGOT 38 U/L (<34); BILIRUBIN,DIRECT 0.1 MG/DL (<0.4); BILIRUBIN,TOTAL 0.7 MG/DL (0.3-1.2); BLOOD UREA NITROGEN 14 MG/DL (9-23); CALCIUM LEVEL 8.8 MG/DL (8.3-10.6); CARBON DIOXIDE LEVEL 26 MMOL/L (20-31); CHLORIDE LEVEL 104 MMOL/L (98-107); CREATININE FOR GFR 0.68 MG/DL (0.55-1.30); GLOMERULAR FILTRATION RATE > 60.0 (>39); GLUCOSE, FASTING 164 MG/DL (74-106); POTASSIUM SERUM 4.2 MMOL/L (3.5-5.1); SODIUM LEVEL 139 MMOL/L (136-145); TOTAL PROTEIN 6.6 G/DL (5.7-8.2)
[2022-11-12 21:29] LABS: FREE T4 0.87 NG/DL (0.89-1.76)
[2022-11-12 21:31] LABS: CPK CREATINE PHOSPHOKINASE 95 U/L (34-145); MB/CK RELATIVE INDEX 1.05 (< OR =4)
[2022-11-12 21:39] LABS: INR 0.88; PARTIAL THROMBOPLASTIN TIME 25.2 SECONDS (24.8-34.2); PROTHROMBIN TIME 12.1 SECONDS (12.5-14.5)
[2022-11-12 22:52] VITALS: O2SAT 96
[2022-11-12 23:00] VITALS: BP 155/69
== END 2022-11-12 23:11 | disposition home or self-care (01) ==
LOC: M ED 19:07
DX: I10 Essential (primary) hypertension (principal); E78.5 Hyperlipidemia, unspecified; F10.10 Alcohol abuse, uncomplicated; Z88.6 Allergy status to analgesic agent; Z88.7 Allergy status to serum and vaccine; Z88.8 Allergy status to other drugs, medicaments and biological substances; Z91.048 Other nonmedicinal substance allergy status; Z79.02 Long term (current) use of antithrombotics/antiplatelets; Z79.810 Long term (current) use of selective estrogen receptor modulators (SERMs); Z79.899 Other long term (current) drug therapy

== ENCOUNTER → 2022-12-05 | Outpatient (CLI) | payer MEDICARE, OTHER ==
[2022-12-05 10:44] LABS: ALBUMIN 3.9 G/DL (3.2-5.2); ALKALINE PHOSPHATASE 224 U/L (46-116); ALT/SGPT 61 U/L (7.0-40); AST/SGOT 28 U/L (<34); BILIRUBIN,TOTAL 0.9 MG/DL (0.3-1.2); BLOOD UREA NITROGEN 12 MG/DL (9-23); CALCIUM LEVEL 9.9 MG/DL (8.3-10.6); CARBON DIOXIDE LEVEL 27 MMOL/L (20-31); CHLORIDE LEVEL 104 MMOL/L (98-107); CHOLESTEROL LEVEL 194 MG/DL (<200); CHOLESTEROL RISK RATIO 3.79 (<5); CREATININE FOR GFR 0.78 MG/DL (0.55-1.30); GLOMERULAR FILTRATION RATE > 60.0 (>39); GLUCOSE, FASTING 152 MG/DL (74-106); HDL CHOLESTEROL 51.1 MG/DL (>40); LDL CHOLESTEROL 94.5 MG/DL (<100); NON-HDL-C 142.9 MG/DL; POTASSIUM SERUM 4.6 MMOL/L (3.5-5.1); SODIUM LEVEL 140 MMOL/L (136-145); TOTAL PROTEIN 6.9 G/DL (5.7-8.2); TRIGLYCERIDES LEVEL 242 MG/DL (<150)
== END ==
LOC: M PLALAB 09:12
PROVIDERS: ATTEND Nurse Practitioner Family
DX: E78.2 Mixed hyperlipidemia (principal)

== ENCOUNTER → 2022-12-18 | Outpatient (CLI) | payer MEDICARE, OTHER | LOC: M PLAIMG 10:13 | PROVIDERS: ATTEND Internal Medicine Hematology | DX: I10 Essential (primary) hypertension (principal) ==

== ENCOUNTER → 2023-01-06 | Outpatient (REF) | payer MEDICARE, OTHER | LOC: M LAB REF 18:54 | PROVIDERS: ATTEND Physician Assistant | DX: R30.0 Dysuria (principal) ==

== ENCOUNTER 2023-01-27 17:38 | Emergency (ER) | payer MEDICARE, OTHER ==
[~2023-01-27] VITALS: Ht 162.6 cm; Wt 84.1 kg
[2023-01-27] MEDS ORDERED: hydrALAZINE 20MG/ML 1ML VIAL IV ONE (18:25)
[2023-01-27 18:50] VITALS: BP 178/100
[2023-01-27 18:56] LABS: VENOUS BASE EXCESS 0.1 (-2.0-2.0); VENOUS HCO3 26.3 MMOL/L (23.0-27.0); VENOUS O2 SATURATION 76.6 % (60.0-80.0); VENOUS PARTIAL PRESSURE CO2 48.1 mmHg (38.0-50.0); VENOUS PARTIAL PRESSURE O2 41.4 mmHg (30.0-50.0); VENOUS PH 7.355 UNITS (7.330-7.430); VENOUS TOTAL CO2 27.7 MMOL/L (24.0-28.0)
[2023-01-27 19:08] LABS: BASO % 0.6 % (0.0-1.0); EOS # 0.2 10^3/uL (0.0-0.5); EOS % 2.8 % (0.0-3.0); HEMATOCRIT 46.1 % (36.0-47.0); HEMOGLOBIN 15.5 g/dl (12.0-15.5); LYMPH # 1.6 10^3/uL (1.5-5.0); LYMPH % 22.9 % (24.0-44.0); MEAN CORPUSCULAR HEMOGLOBIN 30.6 pg (27.0-33.0); MEAN CORPUSCULAR HGB CONC 33.6 g/dl (32.0-36.5); MEAN CORPUSCULAR VOLUME 90.9 fl (80.0-96.0); MONO # 0.8 10^3/uL (0.0-0.8); MONO % 10.5 % (2.0-8.0); NEUTROPHILS # 4.5 10^3/uL (1.5-8.5); NEUTROPHILS % 62.8 % (36.0-66.0); PLATELET COUNT, AUTOMATED 234 10^3/uL (150-450); RED BLOOD COUNT 5.07 10^6/uL (4.00-5.40); WHITE BLOOD COUNT 7.1 10^3/uL (4.0-10.0)
[2023-01-27 19:26] LABS: CK-MB VALUE MASS < 1.0 NG/ML (<3.6)
[2023-01-27 19:28] LABS: ALBUMIN 3.8 G/DL (3.2-5.2); ALKALINE PHOSPHATASE 211 U/L (46-116); ALT/SGPT 54 U/L (7.0-40); AST/SGOT 27 U/L (<34); BILIRUBIN,DIRECT 0.2 MG/DL (<0.4); BILIRUBIN,TOTAL 0.8 MG/DL (0.3-1.2); BLOOD UREA NITROGEN 10 MG/DL (9-23); CALCIUM LEVEL 9.4 MG/DL (8.3-10.6); CARBON DIOXIDE LEVEL 28 MMOL/L (20-31); CHLORIDE LEVEL 108 MMOL/L (98-107); CPK CREATINE PHOSPHOKINASE 66 U/L (34-145); CREATININE FOR GFR 0.72 MG/DL (0.55-1.30); GLOMERULAR FILTRATION RATE > 60.0 (>39); GLUCOSE, FASTING 125 MG/DL (74-106); MB/CK RELATIVE INDEX 1.51 (< OR =4); POTASSIUM SERUM 4.1 MMOL/L (3.5-5.1); SODIUM LEVEL 144 MMOL/L (136-145); TOTAL PROTEIN 6.6 G/DL (5.7-8.2)
[2023-01-27 19:29] LABS: THYROID STIMULATING HORMONE 4.989 uIU/ML (0.55-4.78); THYROXINE (T4) 11.1 UG/DL (4.5-10.9)
[2023-01-27 19:34] LABS: PROCALCITONIN 0.06 ng/ml
[2023-01-27 19:50] LABS: INR 1.01
[2023-01-27 20:45] VITALS: BP 151/72; TEMP 98.7; O2SAT 96
== END 2023-01-27 20:53 | disposition home or self-care (01) ==
LOC: M ED 17:38
DX: I16.0 Hypertensive urgency (principal); E11.9 Type 2 diabetes mellitus without complications; F84.0 Autistic disorder; E78.5 Hyperlipidemia, unspecified; G43.909 Migraine, unspecified, not intractable, without status migrainosus; Z88.8 Allergy status to other drugs, medicaments and biological substances; Z88.6 Allergy status to analgesic agent; Z91.040 Latex allergy status; Z88.7 Allergy status to serum and vaccine; Z79.899 Other long term (current) drug therapy
CPT/HCPCS: 71045; 80048; 80076; 82550; 82553; 82803; 83605; 84145; 84436; 84443; 84484; 85025; 85610; 87040; 87486; 87581; 87633; 87798; 93005; 93041; 94760; 96374; 99285; J0360

== ENCOUNTER → 2023-02-06 | Outpatient (CLI) | payer MEDICARE, OTHER ==
[~2023-02-06] MED LIST changes: +DIVA250T67 PO; +LABE100T71 PO; +NEUR100C
== END ==
LOC: M PLAIMG 10:16
PROVIDERS: ATTEND Internal Medicine Hematology
DX: M19.012 Primary osteoarthritis, left shoulder (principal)

== ENCOUNTER 2023-02-10 10:40 | Emergency (ER) | payer MEDICARE, OTHER ==
[~2023-02-10] VITALS: Ht 162.6 cm; Wt 84.9 kg
[~2023-02-10 10:40] MED LIST changes: -DIVA250T67 PO; -LABE100T71 PO; -NEUR100C
[2023-02-10] MEDS ORDERED: NEUR100C (11:13)
[2023-02-10] MEDS ORDERED: DIVA250T67 (11:13)
[2023-02-10] MEDS ORDERED: AMLO1TAB25 PO (12:12)
[2023-02-10] MEDS ORDERED: LABE100T71 PO (12:16)
[2023-02-10 12:23] LABS: BASO # 0.1 10^3/uL (0.0-0.2); BASO % 0.6 % (0.0-1.0); EOS # 0.1 10^3/uL (0.0-0.5); EOS % 1.3 % (0.0-3.0); HEMATOCRIT 46.3 % (36.0-47.0); HEMOGLOBIN 15.4 g/dl (12.0-15.5); LYMPH # 1.1 10^3/uL (1.5-5.0); LYMPH % 11.9 % (24.0-44.0); MEAN CORPUSCULAR HEMOGLOBIN 29.6 pg (27.0-33.0); MEAN CORPUSCULAR HGB CONC 33.3 g/dl (32.0-36.5); MEAN CORPUSCULAR VOLUME 88.9 fl (80.0-96.0); MONO # 0.9 10^3/uL (0.0-0.8); MONO % 9.8 % (2.0-8.0); NEUTROPHILS # 7.1 10^3/uL (1.5-8.5); NEUTROPHILS % 75.9 % (36.0-66.0); PLATELET COUNT, AUTOMATED 234 10^3/uL (150-450); RED BLOOD COUNT 5.21 10^6/uL (4.00-5.40); WHITE BLOOD COUNT 9.3 10^3/uL (4.0-10.0)
[2023-02-10 12:57] LABS: RSV AMPLIFICATION NEGATIVE (NEGATIVE)
[2023-02-10] MEDS ORDERED: ISOVUE-370 76% 100ML VIAL As Ordered ONE (13:24)
[2023-02-10] MEDS ORDERED: FAMOTIDINE 20 MG TAB PO ONE (15:10)
[2023-02-10] MEDS ORDERED: ENTER DRUG NAME HERE (PATIENT'S OWN MED) PO ONE (15:10)
[2023-02-10] MEDS ORDERED: DAPAGLIFLOZIN PROPANEDIOL 10MG TABLET (FARXIGA) PO ONE (15:15)
[2023-02-10] MEDS ORDERED: NEURONTIN 100 MG PO ONE (15:30)
[2023-02-10] MEDS ORDERED: diazePAM 2 MG TAB PO ONE (15:40)
[2023-02-10] MEDS ORDERED: PILL CUTTER 1 EACH XX PRN (15:55)
[2023-02-10] MEDS ORDERED: diazePAM 5MG TABLET PO ONE (16:00)
[2023-02-10 17:57] VITALS: BP 158/88; TEMP 98.3; O2SAT 96
[2023-02-12 08:53] LABS: ALT/SGPT 52 U/L (1-33); AST/SGOT 28 U/L (5-40); BLOOD UREA NITROGEN 12 MG/DL (7-21); CALCIUM LEVEL 9.7 MG/DL (8.8-10.2); CARBON DIOXIDE LEVEL 23 MEQ/L (22-30); CHLORIDE LEVEL 102 MEQ/L (98-107); CREATININE FOR GFR 0.6 MG/DL (0.7-1.5); GLOMERULAR FILTRATION RATE > 60.0 (>39); GLUCOSE, FASTING 150 MG/DL; POTASSIUM SERUM 4.5 MEQ/L (3.6-5.0); SODIUM LEVEL 140 MEQ/L (134-153)
[2023-02-12 08:54] LABS: ALBUMIN 4.3 G/DL (3.9-5.0); ALKALINE PHOSPHATASE 259 U/L (35-104); BILIRUBIN,DIRECT < 0.2 MG/DL (0.1-0.4); BILIRUBIN,TOTAL < 0.7 MG/DL (0.2-1.3); FREE T4 0.97 NG/DL (0.93-1.70); TOTAL PROTEIN 6.8 G/DL (6.3-8.2)
== END 2023-02-10 18:00 | disposition home or self-care (01) ==
LOC: M ED 10:40
DX: R42 Dizziness and giddiness (principal); R94.31 Abnormal electrocardiogram [ECG] [EKG]; E11.9 Type 2 diabetes mellitus without complications; I25.2 Old myocardial infarction; M79.7 Fibromyalgia; G47.33 Obstructive sleep apnea (adult) (pediatric); I10 Essential (primary) hypertension; F41.9 Anxiety disorder, unspecified; G43.909 Migraine, unspecified, not intractable, without status migrainosus; Z88.6 Allergy status to analgesic agent; Z88.7 Allergy status to serum and vaccine; Z88.8 Allergy status to other drugs, medicaments and biological substances; Z91.018 Allergy to other foods; Z91.048 Other nonmedicinal substance allergy status; Z79.891 Long term (current) use of opiate analgesic; Z79.810 Long term (current) use of selective estrogen receptor modulators (SERMs); Z79.02 Long term (current) use of antithrombotics/antiplatelets; Z79.899 Other long term (current) drug therapy
CPT/HCPCS: 36415; 71045; 71275; 80047; 80048; 80076; 84439; 84443; 84484; 85025; 87631; 93005; 93041; 94760; 99285; Q9967

== ENCOUNTER 2023-02-17 11:45 | Observation (INO) | payer MEDICARE, OTHER ==
[~2023-02-17] VITALS: Ht 162.6 cm; Wt 84.5 kg
[~2023-02-17 11:45] MED LIST changes: +DIVA250T67 PO; +LABE100T71 PO; +NEUR100C
[2023-02-17 13:34] LABS: BASO % 0.5 % (0.0-1.0); EOS # 0.1 10^3/uL (0.0-0.5); EOS % 1.5 % (0.0-3.0); HEMOGLOBIN 14.9 g/dl (12.0-15.5); LYMPH # 1.1 10^3/uL (1.5-5.0); LYMPH % 14.1 % (24.0-44.0); MEAN CORPUSCULAR HEMOGLOBIN 29.9 pg (27.0-33.0); MEAN CORPUSCULAR HGB CONC 33.1 g/dl (32.0-36.5); MEAN CORPUSCULAR VOLUME 90.2 fl (80.0-96.0); MONO # 0.8 10^3/uL (0.0-0.8); MONO % 10.1 % (2.0-8.0); NEUTROPHILS # 5.8 10^3/uL (1.5-8.5); NEUTROPHILS % 72.9 % (36.0-66.0); PLATELET COUNT, AUTOMATED 231 10^3/uL (150-450); RED BLOOD COUNT 4.99 10^6/uL (4.00-5.40)
[2023-02-17 13:48] LABS: INR 1.02; PROTHROMBIN TIME 13.1 SECONDS (12.5-14.5)
[2023-02-17 13:49] LABS: PARTIAL THROMBOPLASTIN TIME 27.9 SECONDS (24.8-34.2)
[2023-02-17 13:59] LABS: CPK CREATINE PHOSPHOKINASE 83 U/L (34-145)
[2023-02-17 14:00] LABS: ALBUMIN 3.7 G/DL (3.2-5.2); ALKALINE PHOSPHATASE 194 U/L (46-116); ALT/SGPT 41 U/L (7.0-40); AST/SGOT 23 U/L (<34); BILIRUBIN,DIRECT 0.2 MG/DL (<0.4); BILIRUBIN,TOTAL 0.7 MG/DL (0.3-1.2); BLOOD UREA NITROGEN 12 MG/DL (9-23); CALCIUM LEVEL 9.4 MG/DL (8.3-10.6); CARBON DIOXIDE LEVEL 26 MMOL/L (20-31); CHLORIDE LEVEL 102 MMOL/L (98-107); CK-MB VALUE MASS < 1.0 NG/ML (<3.6); CREATININE FOR GFR 0.61 MG/DL (0.55-1.30); GLOMERULAR FILTRATION RATE > 60.0 (>39); GLUCOSE, FASTING 189 MG/DL (74-106); POTASSIUM SERUM 4.1 MMOL/L (3.5-5.1); SODIUM LEVEL 140 MMOL/L (136-145); TOTAL PROTEIN 6.5 G/DL (5.7-8.2)
[2023-02-17 14:02] LABS: FREE T4 0.87 NG/DL (0.89-1.76); THYROID STIMULATING HORMONE 2.419 uIU/ML (0.55-4.78)
[2023-02-17] MEDS ORDERED: LABETALOL 100MG/20ML VIAL IV STA (16:40)
[2023-02-17] MEDS ORDERED: ACETAMINOPHEN TAB 650MG DOSE (2X325MG) PO PRN (19:10)
[2023-02-17] MEDS ORDERED: PRESCAP PO (19:36)
[2023-02-17] MEDS ORDERED: HOME MED LIST COMPLETE! XX SCH (19:40)
[2023-02-17] MEDS ORDERED: LABETALOL 100MG TAB PO PRN (19:55)
[2023-02-17] MEDS ORDERED: diazePAM 5MG TABLET PO PRN (19:55)
[2023-02-17] MEDS ORDERED: cloNIDine 0.1MG TABLET PO ONE (20:20)
[2023-02-17] MEDS ORDERED: GLUCOSE 4GM CHEW TABLET PO PRN (20:30)
[2023-02-17] MEDS ORDERED: GLUCAGON INJ 1MG VIAL SC PRN (20:30)
[2023-02-17] MEDS ORDERED: DEXTROSE 50% 50ML SYRINGE IV PRN (20:30)
[2023-02-17 20:46] VITALS: BP 162/82; TEMP 97; O2SAT 97
[2023-02-17] MEDS ORDERED: PILL CUTTER 1 EACH XX PRN (20:55)
[2023-02-17] MEDS ORDERED: TELMISARTAN 20 MG TAB PO SCH (21:00)
[2023-02-17] MEDS ORDERED: ATORVASTATIN 20 MG TAB PO SCH (21:00)
[2023-02-17] MEDS ORDERED: INSULIN LISPRO (NovoLOG) PER UNIT SC SCH (21:00)
[2023-02-17] MEDS: amLODIPine 5 MG TAB PO SCH (21:32)
[2023-02-18 00:49] VITALS: BP 123/58; TEMP 98.5; O2SAT 96
[2023-02-18 04:34] VITALS: BP 116/56; TEMP 97.2; O2SAT 95
[2023-02-18 05:03] LABS: HEMATOCRIT 43.5 % (36.0-47.0); HEMOGLOBIN 14.4 g/dl (12.0-15.5); MEAN CORPUSCULAR HEMOGLOBIN 29.9 pg (27.0-33.0); MEAN CORPUSCULAR HGB CONC 33.1 g/dl (32.0-36.5); MEAN CORPUSCULAR VOLUME 90.4 fl (80.0-96.0); PLATELET COUNT, AUTOMATED 224 10^3/uL (150-450); RED BLOOD COUNT 4.81 10^6/uL (4.00-5.40); WHITE BLOOD COUNT 7.7 10^3/uL (4.0-10.0)
[2023-02-18 05:26] LABS: BLOOD UREA NITROGEN 14 MG/DL (9-23); CALCIUM LEVEL 9.1 MG/DL (8.3-10.6); CARBON DIOXIDE LEVEL 28 MMOL/L (20-31); CHLORIDE LEVEL 106 MMOL/L (98-107); CREATININE FOR GFR 0.86 MG/DL (0.55-1.30); GLOMERULAR FILTRATION RATE > 60.0 (>39); GLUCOSE, FASTING 136 MG/DL (74-106); POTASSIUM SERUM 4.2 MMOL/L (3.5-5.1); SODIUM LEVEL 143 MMOL/L (136-145)
[2023-02-18 07:24] VITALS: BP 120/63; TEMP 96.8; O2SAT 94
[2023-02-18 09:00] VITALS: BP 120/63
[2023-02-18] MEDS ORDERED: DIVALPROEX 250MG TAB PO SCH (09:00)
[2023-02-18] MEDS: amLODIPine 5 MG TAB PO SCH ×2 (09:00→09:01)
[2023-02-18] MEDS: INSULIN LISPRO (NovoLOG) PER UNIT SC SCH ×2 (09:01→09:05)
[2023-02-18] MEDS ORDERED: DAPAGLIFLOZIN PROPANEDIOL 10MG TABLET (FARXIGA) PO SCH (12:00)
[2023-02-18] MEDS ORDERED: FAMOTIDINE 20 MG TAB PO SCH (12:00)
[2023-02-18] MEDS ORDERED: CLOPIDOGREL 75 MG TAB PO SCH (21:00)
== END 2023-02-18 11:39 | disposition home or self-care (01) ==
LOC: M ED 11:45 → M ED INP 11:46 → M PCU 20:47
PROVIDERS: ADMIT Internal Medicine; ATTEND Internal Medicine
DX: I16.9 Hypertensive crisis, unspecified (principal); I10 Essential (primary) hypertension; F88 Other disorders of psychological development; E78.5 Hyperlipidemia, unspecified; G43.B0 Ophthalmoplegic migraine, not intractable; E11.42 Type 2 diabetes mellitus with diabetic polyneuropathy; G25.0 Essential tremor; K21.9 Gastro-esophageal reflux disease without esophagitis; I25.10 Atherosclerotic heart disease of native coronary artery without angina pectoris; G47.33 Obstructive sleep apnea (adult) (pediatric); K44.9 Diaphragmatic hernia without obstruction or gangrene; M79.7 Fibromyalgia; M19.90 Unspecified osteoarthritis, unspecified site; F41.9 Anxiety disorder, unspecified; H93.19 Tinnitus, unspecified ear; Z86.73 Personal history of transient ischemic attack (TIA), and cerebral infarction without residual deficits; Z85.3 Personal history of malignant neoplasm of breast; Z85.42 Personal history of malignant neoplasm of other parts of uterus; Z98.41 Cataract extraction status, right eye; Z98.42 Cataract extraction status, left eye; Z90.13 Acquired absence of bilateral breasts and nipples; Z90.79 Acquired absence of other genital organ(s); Z92.3 Personal history of irradiation; Z90.49 Acquired absence of other specified parts of digestive tract; Z79.02 Long term (current) use of antithrombotics/antiplatelets; Z79.899 Other long term (current) drug therapy; Z88.6 Allergy status to analgesic agent; Z88.8 Allergy status to other drugs, medicaments and biological substances; Z91.040 Latex allergy status; Z91.048 Other nonmedicinal substance allergy status; Z91.018 Allergy to other foods; Z20.822 Contact with and (suspected) exposure to COVID-19
CPT/HCPCS: 36415; 70450; 80048; 80076; 82550; 82553; 83735; 83880; 84439; 84443; 84484; 85025; 85027; 85610; 85730; 87635; 93005; 96374; 99285; G0378; J1920

== ENCOUNTER → 2023-04-16 | Outpatient (CLI) | payer MEDICARE, OTHER ==
[2023-04-16 08:50] LABS: HEMATOCRIT 47.4 % (36.0-47.0); HEMOGLOBIN 15.4 g/dl (12.0-15.5); MEAN CORPUSCULAR HEMOGLOBIN 30.1 pg (27.0-33.0); MEAN CORPUSCULAR HGB CONC 32.5 g/dl (32.0-36.5); MEAN CORPUSCULAR VOLUME 92.8 fl (80.0-96.0); PLATELET COUNT, AUTOMATED 216 10^3/uL (150-450); RED BLOOD COUNT 5.11 10^6/uL (4.00-5.40); WHITE BLOOD COUNT 6.3 10^3/uL (4.0-10.0)
[2023-04-16 09:16] LABS: C REACTIVE PROTEIN QUANTITATIV < 0.40 MG/DL (<1.0); CREATININE, URINE 66.8 MG/DL; MALB URINE SIEMENS < 3.0 MG/L; MAU/CREAT RATIO 4.4 MCG/MG (0.0-30.0)
[2023-04-16 09:17] LABS: HEMOGLOBIN A1c 6.9 % (4.0-6.0)
[2023-04-16 09:18] LABS: ALBUMIN 3.5 G/DL (3.2-5.2); ALKALINE PHOSPHATASE 138 U/L (46-116); ALT/SGPT 28 U/L (7.0-40); AST/SGOT 17 U/L (<34); BILIRUBIN,TOTAL 0.7 MG/DL (0.3-1.2); BLOOD UREA NITROGEN 15 MG/DL (9-23); CALCIUM LEVEL 9.3 MG/DL (8.3-10.6); CARBON DIOXIDE LEVEL 29 MMOL/L (20-31); CHLORIDE LEVEL 104 MMOL/L (98-107); CHOLESTEROL LEVEL 199 MG/DL (<200); CHOLESTEROL RISK RATIO 4.02 (<5); CREATININE FOR GFR 0.85 MG/DL (0.55-1.30); GLOMERULAR FILTRATION RATE > 60.0 (>39); GLUCOSE, FASTING 145 MG/DL (74-106); HDL CHOLESTEROL 49.5 MG/DL (>40); LDL CHOLESTEROL 92.9 MG/DL (<100); NON-HDL-C 149.5 MG/DL; POTASSIUM SERUM 4.3 MMOL/L (3.5-5.1); SODIUM LEVEL 141 MMOL/L (136-145); THYROID STIMULATING HORMONE 7.593 uIU/ML (0.55-4.78); TOTAL PROTEIN 6.4 G/DL (5.7-8.2); TRIGLYCERIDES LEVEL 283 MG/DL (<150)
[2023-04-16 09:19] LABS: FREE T4 1.11 NG/DL (0.89-1.76); VITAMIN B12 LEVEL 547 PG/ML (211-911)
[2023-04-16 09:37] LABS: TOTAL 25(OH) VITAMIN D 48.8 NG/ML (20.0-100.0)
== END ==
LOC: M LAB 07:52
PROVIDERS: ATTEND Internal Medicine Hematology
DX: G40.909 Epilepsy, unspecified, not intractable, without status epilepticus (principal); E11.311 Type 2 diabetes mellitus with unspecified diabetic retinopathy with macular edema; Z79.899 Other long term (current) drug therapy

== ENCOUNTER → 2023-04-23 | Outpatient (CLI) | payer MEDICARE, OTHER | LOC: M PLALAB 07:20 | PROVIDERS: ATTEND Internal Medicine Hematology | DX: F88 Other disorders of psychological development (principal) ==

== ENCOUNTER → 2023-05-25 | Outpatient (REF) | payer MEDICARE, OTHER | LOC: M LAB REF 18:12 | PROVIDERS: ATTEND Physician Assistant | DX: R30.0 Dysuria (principal); B96.20 Unspecified Escherichia coli [E. coli] as the cause of diseases classified elsewhere ==

== ENCOUNTER → 2023-06-28 | Outpatient (CLI) | payer MEDICARE, OTHER ==
[~2023-06-28] MED LIST changes: +LABE100T40 PO; -LABE100T71 PO
[2023-06-28 14:04] LABS: BASO % 0.7 % (0.0-1.0); EOS # 0.1 10^3/uL (0.0-0.5); EOS % 1.9 % (0.0-3.0); HEMATOCRIT 46.9 % (36.0-47.0); HEMOGLOBIN 15.3 g/dl (12.0-15.5); LYMPH # 1.4 10^3/uL (1.5-5.0); LYMPH % 23.4 % (24.0-44.0); MEAN CORPUSCULAR HEMOGLOBIN 30.4 pg (27.0-33.0); MEAN CORPUSCULAR HGB CONC 32.6 g/dl (32.0-36.5); MEAN CORPUSCULAR VOLUME 93.1 fl (80.0-96.0); MONO # 0.6 10^3/uL (0.0-0.8); MONO % 10.3 % (2.0-8.0); NEUTROPHILS # 3.7 10^3/uL (1.5-8.5); NEUTROPHILS % 63.2 % (36.0-66.0); PLATELET COUNT, AUTOMATED 242 10^3/uL (150-450); RED BLOOD COUNT 5.04 10^6/uL (4.00-5.40); WHITE BLOOD COUNT 5.9 10^3/uL (4.0-10.0)
[2023-06-28 14:33] LABS: VALPROIC ACID (DEPAKOTE) < 3.0 UG/ML (50.0-100.0)
[2023-06-28 14:34] LABS: THYROID STIMULATING HORMONE 3.063 uIU/ML (0.55-4.78)
[2023-06-28 14:35] LABS: FREE T4 1.02 NG/DL (0.89-1.76)
[2023-06-28 14:36] LABS: ALBUMIN 3.8 G/DL (3.2-5.2); ALKALINE PHOSPHATASE 180 U/L (46-116); ALT/SGPT 40 U/L (7.0-40); AST/SGOT 20 U/L (<34); BILIRUBIN,TOTAL 0.8 MG/DL (0.3-1.2); BLOOD UREA NITROGEN 10 MG/DL (9-23); CALCIUM LEVEL 9.3 MG/DL (8.3-10.6); CARBON DIOXIDE LEVEL 27 MMOL/L (20-31); CHLORIDE LEVEL 105 MMOL/L (98-107); CREATININE FOR GFR 0.77 MG/DL (0.55-1.30); GLOMERULAR FILTRATION RATE > 60.0 (>39); GLUCOSE, FASTING 167 MG/DL (74-106); POTASSIUM SERUM 4.3 MMOL/L (3.5-5.1); SODIUM LEVEL 141 MMOL/L (136-145); TOTAL PROTEIN 6.5 G/DL (5.7-8.2)
== END ==
LOC: M PLALAB 10:49 → M LAB 10:49
PROVIDERS: ATTEND Internal Medicine Hematology
DX: R79.89 Other specified abnormal findings of blood chemistry (principal); G62.9 Polyneuropathy, unspecified; F88 Other disorders of psychological development; Z79.899 Other long term (current) drug therapy

== ENCOUNTER → 2023-07-18 | Outpatient (REF) | payer MEDICARE, OTHER | LOC: M LAB REF 16:21 | PROVIDERS: ATTEND Student in an Organized Health Care Education/Training Program | DX: R30.0 Dysuria (principal) ==

== ENCOUNTER → 2023-08-06 | Outpatient (CLI) | payer MEDICARE, OTHER | LOC: M PLAIMG 13:30 | PROVIDERS: ATTEND Internal Medicine Hematology | DX: I10 Essential (primary) hypertension (principal) ==

== ENCOUNTER 2023-09-02 06:31 | Day surgery (SDC) | payer MEDICARE, OTHER ==
[~2023-09-02] VITALS: Ht 163.8 cm; Wt 79.3 kg
[~2023-09-02 06:31] MED LIST changes: +THERTAB52 PO; +VALP250S
[2023-09-02] MEDS ORDERED: propofoL 200 MG/20 ML VIAL As Ordered ONE (07:06)
[2023-09-02] MEDS ORDERED: GLYCOPYRROLATE INJ 0.2 MG/ML 2 ML VIAL As Ordered ONE (07:15)
[2023-09-02] MEDS: NS 1,000 ML IV ONE (07:30)
[2023-09-02 08:00] VITALS: TEMP 96.9
[2023-09-02 08:30] VITALS: BP 181/83; O2SAT 99
== END 2023-09-02 09:00 | disposition home or self-care (01) ==
LOC: M OPP 06:31
PROVIDERS: ATTEND Internal Medicine Gastroenterology
DX: Z12.11 Encounter for screening for malignant neoplasm of colon (principal); Z12.12 Encounter for screening for malignant neoplasm of rectum; D12.2 Benign neoplasm of ascending colon; K57.30 Diverticulosis of large intestine without perforation or abscess without bleeding; K64.8 Other hemorrhoids; K21.9 Gastro-esophageal reflux disease without esophagitis; Z90.49 Acquired absence of other specified parts of digestive tract; I25.10 Atherosclerotic heart disease of native coronary artery without angina pectoris; I10 Essential (primary) hypertension; I25.2 Old myocardial infarction; E11.9 Type 2 diabetes mellitus without complications; E78.00 Pure hypercholesterolemia, unspecified; Z85.3 Personal history of malignant neoplasm of breast; Z90.710 Acquired absence of both cervix and uterus; Z79.899 Other long term (current) drug therapy; G47.30 Sleep apnea, unspecified; Z92.3 Personal history of irradiation; Z86.73 Personal history of transient ischemic attack (TIA), and cerebral infarction without residual deficits; Z79.02 Long term (current) use of antithrombotics/antiplatelets

== ENCOUNTER → 2023-10-08 | Outpatient (CLI) | payer MEDICARE, OTHER ==
[2023-10-08 15:19] LABS: BASO % 0.4 % (0.0-1.0); EOS # 0.1 10^3/uL (0.0-0.5); EOS % 0.8 % (0.0-3.0); HEMATOCRIT 45.7 % (36.0-47.0); HEMOGLOBIN 15.2 g/dl (12.0-15.5); LYMPH # 1.4 10^3/uL (1.5-5.0); LYMPH % 19.8 % (24.0-44.0); MEAN CORPUSCULAR HEMOGLOBIN 30.6 pg (27.0-33.0); MEAN CORPUSCULAR HGB CONC 33.3 g/dl (32.0-36.5); MONO # 0.8 10^3/uL (0.0-0.8); MONO % 11.2 % (2.0-8.0); NEUTROPHILS # 4.8 10^3/uL (1.5-8.5); NEUTROPHILS % 67.5 % (36.0-66.0); PLATELET COUNT, AUTOMATED 250 10^3/uL (150-450); RED BLOOD COUNT 4.97 10^6/uL (4.00-5.40); WHITE BLOOD COUNT 7.2 10^3/uL (4.0-10.0)
[2023-10-08 15:31] LABS: HEMOGLOBIN A1c 6.6 % (4.0-6.0)
[2023-10-08 15:50] LABS: ALBUMIN 4.2 G/DL (3.2-5.2); ALKALINE PHOSPHATASE 188 U/L (46-116); ALT/SGPT 28 U/L (7.0-40); AST/SGOT 15 U/L (<34); BILIRUBIN,TOTAL 0.9 MG/DL (0.3-1.2); BLOOD UREA NITROGEN 12 MG/DL (9-23); CALCIUM LEVEL 10.1 MG/DL (8.3-10.6); CARBON DIOXIDE LEVEL 30 MMOL/L (20-31); CHLORIDE LEVEL 105 MMOL/L (98-107); CREATININE FOR GFR 0.74 MG/DL (0.55-1.30); GLOMERULAR FILTRATION RATE > 60.0 (>39); GLUCOSE, FASTING 122 MG/DL (74-106); POTASSIUM SERUM 4.2 MMOL/L (3.5-5.1); SODIUM LEVEL 140 MMOL/L (136-145); TOTAL PROTEIN 6.8 G/DL (5.7-8.2)
[2023-10-08 15:51] LABS: THYROID STIMULATING HORMONE 1.979 uIU/ML (0.55-4.78)
== END ==
LOC: M PLALAB 11:59
PROVIDERS: ATTEND Internal Medicine Hematology
DX: E11.311 Type 2 diabetes mellitus with unspecified diabetic retinopathy with macular edema (principal)

== ENCOUNTER 2023-11-30 16:39 | Emergency (ER) | payer MEDICARE, OTHER ==
[~2023-11-30] VITALS: Ht 162.6 cm; Wt 77.1 kg
[2023-11-30 17:23] LABS: BASO % 0.5 % (0.0-1.0); EOS # 0.1 10^3/uL (0.0-0.5); EOS % 1.2 % (0.0-3.0); HEMATOCRIT 44.8 % (36.0-47.0); LYMPH # 1.6 10^3/uL (1.5-5.0); MEAN CORPUSCULAR HEMOGLOBIN 30.4 pg (27.0-33.0); MEAN CORPUSCULAR HGB CONC 33.5 g/dl (32.0-36.5); MEAN CORPUSCULAR VOLUME 90.9 fl (80.0-96.0); MONO % 12.1 % (2.0-8.0); NEUTROPHILS # 5.4 10^3/uL (1.5-8.5); NEUTROPHILS % 65.7 % (36.0-66.0); PLATELET COUNT, AUTOMATED 250 10^3/uL (150-450); RED BLOOD COUNT 4.93 10^6/uL (4.00-5.40); WHITE BLOOD COUNT 8.2 10^3/uL (4.0-10.0)
[2023-11-30 17:36] LABS: INR 0.98; PARTIAL THROMBOPLASTIN TIME 27.4 SECONDS (24.8-34.2); PROTHROMBIN TIME 12.7 SECONDS (12.5-14.5)
[2023-11-30 17:45] LABS: LIPASE 54 U/L (12-53)
[2023-11-30 17:48] LABS: ALBUMIN 3.9 G/DL (3.2-5.2); ALKALINE PHOSPHATASE 233 U/L (46-116); ALT/SGPT 40 U/L (7.0-40); AST/SGOT 21 U/L (<34); BILIRUBIN,DIRECT 0.2 MG/DL (<0.4); BILIRUBIN,TOTAL 0.7 MG/DL (0.3-1.2); BLOOD UREA NITROGEN 14 MG/DL (9-23); CALCIUM LEVEL 9.2 MG/DL (8.3-10.6); CARBON DIOXIDE LEVEL 28 MMOL/L (20-31); CHLORIDE LEVEL 104 MMOL/L (98-107); CK-MB VALUE MASS < 1.0 NG/ML (<3.6); CREATININE FOR GFR 0.77 MG/DL (0.55-1.30); GLOMERULAR FILTRATION RATE > 60.0 (>39); GLUCOSE, FASTING 94 MG/DL (74-106); SODIUM LEVEL 137 MMOL/L (136-145); TOTAL PROTEIN 6.7 G/DL (5.7-8.2)
[2023-11-30 17:49] LABS: FREE T4 0.93 NG/DL (0.89-1.76); THYROID STIMULATING HORMONE 2.798 uIU/ML (0.55-4.78)
[2023-11-30 17:50] LABS: CPK CREATINE PHOSPHOKINASE 87 U/L (34-145); MB/CK RELATIVE INDEX 1.14 (< OR =4)
[2023-11-30 18:04] VITALS: BP 194/81
[2023-11-30] MEDS: LABETALOL 100MG TAB PO ONE (18:04)
[2023-11-30 18:09] VITALS: TEMP 97
[2023-11-30 18:56] LABS: CK-MB VALUE MASS < 1.0 NG/ML (<3.6)
[2023-11-30 18:57] LABS: CPK CREATINE PHOSPHOKINASE 86 U/L (34-145); MB/CK RELATIVE INDEX 1.16 (< OR =4)
[2023-11-30 19:22] VITALS: BP 120/80; O2SAT 96
== END 2023-11-30 21:15 | disposition home or self-care (01) ==
LOC: M ED 16:39
DX: R07.9 Chest pain, unspecified (principal); I25.2 Old myocardial infarction; E11.9 Type 2 diabetes mellitus without complications; I10 Essential (primary) hypertension; E78.5 Hyperlipidemia, unspecified; G40.909 Epilepsy, unspecified, not intractable, without status epilepticus; M79.7 Fibromyalgia; G47.33 Obstructive sleep apnea (adult) (pediatric); F84.0 Autistic disorder; Z88.6 Allergy status to analgesic agent; Z88.8 Allergy status to other drugs, medicaments and biological substances; Z88.7 Allergy status to serum and vaccine; Z91.018 Allergy to other foods; Z91.048 Other nonmedicinal substance allergy status; Z79.02 Long term (current) use of antithrombotics/antiplatelets; Z79.899 Other long term (current) drug therapy

== ENCOUNTER → 2023-12-04 | Outpatient (CLI) | payer MEDICARE, OTHER ==
[2023-12-04 13:13] LABS: BASO % 0.5 % (0.0-1.0); C REACTIVE PROTEIN QUANTITATIV < 0.40 MG/DL (<1.0); EOS # 0.1 10^3/uL (0.0-0.5); EOS % 1.4 % (0.0-3.0); HEMATOCRIT 45.3 % (36.0-47.0); HEMOGLOBIN 14.6 g/dl (12.0-15.5); LYMPH # 1.1 10^3/uL (1.5-5.0); LYMPH % 18.2 % (24.0-44.0); MEAN CORPUSCULAR HEMOGLOBIN 29.4 pg (27.0-33.0); MEAN CORPUSCULAR HGB CONC 32.2 g/dl (32.0-36.5); MEAN CORPUSCULAR VOLUME 91.1 fl (80.0-96.0); MONO # 0.6 10^3/uL (0.0-0.8); MONO % 9.4 % (2.0-8.0); NEUTROPHILS # 4.4 10^3/uL (1.5-8.5); NEUTROPHILS % 69.9 % (36.0-66.0); PLATELET COUNT, AUTOMATED 249 10^3/uL (150-450); RED BLOOD COUNT 4.97 10^6/uL (4.00-5.40); WHITE BLOOD COUNT 6.3 10^3/uL (4.0-10.0)
[2023-12-04 13:17] LABS: ALBUMIN 3.8 G/DL (3.2-5.2); ALKALINE PHOSPHATASE 204 U/L (46-116); ALT/SGPT 30 U/L (7.0-40); AST/SGOT 15 U/L (<34); BILIRUBIN,TOTAL 0.7 MG/DL (0.3-1.2); BLOOD UREA NITROGEN 10 MG/DL (9-23); CALCIUM LEVEL 9.5 MG/DL (8.3-10.6); CARBON DIOXIDE LEVEL 30 MMOL/L (20-31); CHLORIDE LEVEL 107 MMOL/L (98-107); CHOLESTEROL LEVEL 175 MG/DL (<200); CHOLESTEROL RISK RATIO 3.84 (<5); CREATININE FOR GFR 0.75 MG/DL (0.55-1.30); GLOMERULAR FILTRATION RATE > 60.0 (>39); GLUCOSE, FASTING 177 MG/DL (74-106); HDL CHOLESTEROL 45.5 MG/DL (>40); LDL CHOLESTEROL 68.1 MG/DL (<100); NON-HDL-C 129.5 MG/DL; POTASSIUM SERUM 4.1 MMOL/L (3.5-5.1); SODIUM LEVEL 143 MMOL/L (136-145); TOTAL PROTEIN 6.6 G/DL (5.7-8.2); TRIGLYCERIDES LEVEL 307 MG/DL (<150)
[2023-12-04 13:18] LABS: THYROID STIMULATING HORMONE 1.489 uIU/ML (0.55-4.78)
[2023-12-04 13:19] LABS: FREE T4 1.07 NG/DL (0.89-1.76); TOTAL 25(OH) VITAMIN D 36.4 NG/ML (20.0-100.0); VITAMIN B12 LEVEL 303 PG/ML (211-911)
[2023-12-04 13:24] LABS: HEMOGLOBIN A1c 6.7 % (4.0-6.0)
[2023-12-04 13:37] LABS: CREATININE, URINE 65.3 MG/DL; MALB URINE SIEMENS < 3.0 MG/L; MAU/CREAT RATIO 4.5 MCG/MG (0.0-30.0)
== END ==
LOC: M PLALAB 10:46
PROVIDERS: ATTEND Internal Medicine Hematology
DX: E11.311 Type 2 diabetes mellitus with unspecified diabetic retinopathy with macular edema (principal); Z79.899 Other long term (current) drug therapy

== ENCOUNTER 2024-04-07 09:18 | Observation (INO) | payer MEDICARE, OTHER ==
[~2024-04-07] VITALS: Ht 162.6 cm; Wt 73.8 kg
[~2024-04-07 09:18] MED LIST changes: -VALP250S; +VALP250S26
[2024-04-07] MEDS ORDERED: ISOVUE-370 76% 100ML VIAL As Ordered ONE (10:33)
[2024-04-07 10:45] LABS: BASO # 0.1 10^3/uL (0.0-0.2); BASO % 0.8 % (0.0-1.0); EOS % 0.7 % (0.0-3.0); HEMOGLOBIN 14.8 g/dl (12.0-15.5); LYMPH # 1.1 10^3/uL (1.5-5.0); LYMPH % 18.6 % (24.0-44.0); MEAN CORPUSCULAR HEMOGLOBIN 29.8 pg (27.0-33.0); MEAN CORPUSCULAR HGB CONC 32.9 g/dl (32.0-36.5); MEAN CORPUSCULAR VOLUME 90.7 fl (80.0-96.0); MONO # 0.6 10^3/uL (0.0-0.8); MONO % 9.4 % (2.0-8.0); NEUTROPHILS # 4.3 10^3/uL (1.5-8.5); NEUTROPHILS % 70.2 % (36.0-66.0); PLATELET COUNT, AUTOMATED 222 10^3/uL (150-450); RED BLOOD COUNT 4.96 10^6/uL (4.00-5.40); WHITE BLOOD COUNT 6.1 10^3/uL (4.0-10.0)
[2024-04-07 11:00] LABS: INR 0.93; PARTIAL THROMBOPLASTIN TIME 28.5 SECONDS (24.8-34.2); PROTHROMBIN TIME 12.8 SECONDS (12.5-14.5)
[2024-04-07 11:09] LABS: ALBUMIN 3.6 G/DL (3.2-5.2); ALKALINE PHOSPHATASE 200 U/L (35-104); ALT/SGPT 45 U/L (7.0-40); AST/SGOT 25 U/L (<34); BILIRUBIN,DIRECT 0.2 MG/DL (<0.4); BILIRUBIN,TOTAL 0.7 MG/DL (0.3-1.2); BLOOD UREA NITROGEN 13 MG/DL (9-23); CALCIUM LEVEL 9.8 MG/DL (8.3-10.6); CARBON DIOXIDE LEVEL 28 MMOL/L (20-31); CHLORIDE LEVEL 106 MMOL/L (98-107); CREATININE FOR GFR 0.72 MG/DL (0.55-1.30); GLOMERULAR FILTRATION RATE > 60.0 (>39); GLUCOSE, FASTING 143 MG/DL (74-106); POTASSIUM SERUM 4.3 MMOL/L (3.5-5.1); SODIUM LEVEL 141 MMOL/L (136-145); TOTAL PROTEIN 6.9 G/DL (5.7-8.2)
[2024-04-07] MEDS ORDERED: HOME MED LIST COMPLETE! XX SCH (13:20)
[2024-04-07] MEDS ORDERED: DEXTROSE 50% 50ML SYRINGE IV PRN (14:40)
[2024-04-07] MEDS ORDERED: hydrALAZINE 20MG/ML 1ML VIAL IV PRN (14:40)
[2024-04-07] MEDS ORDERED: GLUCAGON INJ 1MG VIAL SC PRN (14:40)
[2024-04-07] MEDS ORDERED: GLUCOSE 4 GM CHEW PO PRN (14:40)
[2024-04-07] MEDS ORDERED: diazePAM 5MG TABLET PO PRN (14:40)
[2024-04-07 15:16] LABS: CHOLESTEROL LEVEL 168 MG/DL (<200); CHOLESTEROL RISK RATIO 3.75 (<5); HDL CHOLESTEROL 44.8 MG/DL (>40); LDL CHOLESTEROL 85.8 MG/DL (<100); NON-HDL-C 123.2 MG/DL; TRIGLYCERIDES LEVEL 187 MG/DL (<150)
[2024-04-07 15:30] LABS: HEMOGLOBIN A1c 6.6 % (4.0-6.0)
[2024-04-07] MEDS: DAPAGLIFLOZIN PROPANEDIOL 10MG TABLET (FARXIGA) PO SCH (15:57)
[2024-04-07] MEDS: FAMOTIDINE 20 MG TAB PO SCH (15:57)
[2024-04-07] MEDS: INSULIN LISPRO (NovoLOG) PER UNIT SC SCH ×2 (18:05→20:26)
[2024-04-07 19:56] VITALS: BP 184/81; TEMP 97.3; O2SAT 98
[2024-04-07] MEDS ORDERED: amLODIPine 5 MG TAB PO PRN (20:10)
[2024-04-07] MEDS: TELMISARTAN 20 MG TAB PO SCH (20:25)
[2024-04-07] MEDS: VITAMIN D 1,000 INTERNATIONAL UNITS TABLET PO SCH (20:25)
[2024-04-07] MEDS: ATORVASTATIN 20 MG TAB PO SCH (20:25)
[2024-04-07] MEDS: CLOPIDOGREL 75 MG TAB PO SCH (20:25)
[2024-04-07 21:56] VITALS: BP 168/76
[2024-04-08] VITALS: BP 166/78; TEMP 97.4; O2SAT 96
[2024-04-08 04:30] VITALS: BP 116/74; TEMP 96.4; O2SAT 98
[2024-04-08 07:19] LABS: HEMOGLOBIN 15.4 g/dl (12.0-15.5); MEAN CORPUSCULAR HEMOGLOBIN 29.7 pg (27.0-33.0); MEAN CORPUSCULAR HGB CONC 32.8 g/dl (32.0-36.5); MEAN CORPUSCULAR VOLUME 90.7 fl (80.0-96.0); PLATELET COUNT, AUTOMATED 225 10^3/uL (150-450); RED BLOOD COUNT 5.18 10^6/uL (4.00-5.40); WHITE BLOOD COUNT 6.5 10^3/uL (4.0-10.0)
[2024-04-08 07:53] LABS: BLOOD UREA NITROGEN 13 MG/DL (9-23); CALCIUM LEVEL 9.8 MG/DL (8.3-10.6); CARBON DIOXIDE LEVEL 28 MMOL/L (20-31); CHLORIDE LEVEL 105 MMOL/L (98-107); CREATININE FOR GFR 0.76 MG/DL (0.55-1.30); GLOMERULAR FILTRATION RATE > 60.0 (>39); GLUCOSE, FASTING 115 MG/DL (74-106); POTASSIUM SERUM 4.7 MMOL/L (3.5-5.1); SODIUM LEVEL 141 MMOL/L (136-145)
[2024-04-08 11:51] VITALS: BP 119/60; TEMP 98; O2SAT 97
[2024-04-08] MEDS ORDERED: ENOXAPARIN 40MG/0.4ML SYRINGE (J1650 PER 10MG) SC SCH (21:00)
== END 2024-04-08 11:52 | disposition home or self-care (01) ==
LOC: M ED 09:18 → M ED INP 14:41
PROVIDERS: ADMIT Internal Medicine; ATTEND Internal Medicine
DX: H53.129 Transient visual loss, unspecified eye (principal); H35.30 Unspecified macular degeneration; I10 Essential (primary) hypertension; E78.5 Hyperlipidemia, unspecified; I65.29 Occlusion and stenosis of unspecified carotid artery; E11.9 Type 2 diabetes mellitus without complications; K21.9 Gastro-esophageal reflux disease without esophagitis; F41.9 Anxiety disorder, unspecified; Z85.3 Personal history of malignant neoplasm of breast; Z79.899 Other long term (current) drug therapy; Z88.8 Allergy status to other drugs, medicaments and biological substances; Z88.7 Allergy status to serum and vaccine; Z91.018 Allergy to other foods
CPT/HCPCS: 36415; 70450; 70496; 70498; 70544; 70551; 71045; 80047; 80048; 80061; 80076; 83036; 85025; 85027; 85610; 85730; 93005; 93041; 93306; 94760; 97161; 99285; G0378; Q9967

== ENCOUNTER 2024-05-24 20:48 | Emergency (ER) | payer MEDICARE, OTHER ==
[~2024-05-24] VITALS: Ht 162.6 cm; Wt 76.5 kg
[2024-05-25] MEDS ORDERED: NEUR100C PO (00:47)
[2024-05-25 00:58] VITALS: BP 157/68
[2024-05-25 01:17] VITALS: TEMP 96.7; O2SAT 99
== END 2024-05-25 01:17 | disposition home or self-care (01) ==
LOC: M ED 20:48
DX: M79.2 Neuralgia and neuritis, unspecified (principal); E11.9 Type 2 diabetes mellitus without complications; I10 Essential (primary) hypertension; J45.909 Unspecified asthma, uncomplicated; Z86.73 Personal history of transient ischemic attack (TIA), and cerebral infarction without residual deficits; Z86.79 Personal history of other diseases of the circulatory system; Z79.02 Long term (current) use of antithrombotics/antiplatelets; Z79.899 Other long term (current) drug therapy; Z88.6 Allergy status to analgesic agent; Z88.8 Allergy status to other drugs, medicaments and biological substances; Z88.7 Allergy status to serum and vaccine; Z91.018 Allergy to other foods; Z91.040 Latex allergy status

== ENCOUNTER → 2024-07-27 | Outpatient (CLI) | payer MEDICARE, OTHER ==
[~2024-07-27] MED LIST changes: +NEUR100C PO
[2024-07-27 10:41] LABS: HEMATOCRIT 44.8 % (36.0-47.0)
[2024-07-27 10:43] LABS: BASO % 0.5 % (0.0-1.0); EOS # 0.1 10^3/uL (0.0-0.5); EOS % 1.6 % (0.0-3.0); HEMOGLOBIN 14.6 g/dl (12.0-15.5); LYMPH # 1.3 10^3/uL (1.5-5.0); LYMPH % 21.3 % (24.0-44.0); MEAN CORPUSCULAR HEMOGLOBIN 29.6 pg (27.0-33.0); MEAN CORPUSCULAR HGB CONC 32.4 g/dl (32.0-36.5); MEAN CORPUSCULAR VOLUME 91.1 fl (80.0-96.0); MONO # 0.8 10^3/uL (0.0-0.8); MONO % 12.4 % (2.0-8.0); NEUTROPHILS % 63.9 % (36.0-66.0); PLATELET COUNT, AUTOMATED 252 10^3/uL (150-450); RED BLOOD COUNT 4.94 10^6/uL (4.00-5.40); WHITE BLOOD COUNT 6.3 10^3/uL (4.0-10.0)
[2024-07-27 10:45] LABS: FREE T4 0.97 NG/DL (0.89-1.76); THYROID STIMULATING HORMONE 2.956 uIU/ML (0.55-4.78)
[2024-07-27 10:46] LABS: ALBUMIN 3.9 G/DL (3.2-5.2); ALKALINE PHOSPHATASE 123 U/L (35-104); ALT/SGPT 27 U/L (7.0-40); AST/SGOT 17 U/L (<34); BILIRUBIN,TOTAL 0.8 MG/DL (0.3-1.2); BLOOD UREA NITROGEN 11 MG/DL (9-23); CALCIUM LEVEL 9.9 MG/DL (8.3-10.6); CARBON DIOXIDE LEVEL 30 MMOL/L (20-31); CHLORIDE LEVEL 107 MMOL/L (98-107); CHOLESTEROL LEVEL 190 MG/DL (<200); CHOLESTEROL RISK RATIO 3.68 (<5); CREATININE FOR GFR 0.84 MG/DL (0.55-1.30); GLOMERULAR FILTRATION RATE > 60.0 (>39); GLUCOSE, FASTING 129 MG/DL (74-106); HDL CHOLESTEROL 51.5 MG/DL (>40); LDL CHOLESTEROL 103.1 MG/DL (<100); NON-HDL-C 138.5 MG/DL; POTASSIUM SERUM 4.5 MMOL/L (3.5-5.1); SODIUM LEVEL 143 MMOL/L (136-145); TOTAL PROTEIN 6.7 G/DL (5.7-8.2); TRIGLYCERIDES LEVEL 177 MG/DL (<150)
[2024-07-27 10:48] LABS: VITAMIN B12 LEVEL 341 PG/ML (211-911)
[2024-07-27 10:51] LABS: FOLATE > 24.0 NG/ML (>5.4)
[2024-07-27 10:58] LABS: HEMOGLOBIN A1c 6.6 % (4.0-6.0)
== END ==
LOC: M PLALAB 08:32
PROVIDERS: ATTEND Student in an Organized Health Care Education/Training Program
DX: I10 Essential (primary) hypertension (principal); E78.1 Pure hyperglyceridemia; E11.311 Type 2 diabetes mellitus with unspecified diabetic retinopathy with macular edema; G62.9 Polyneuropathy, unspecified

== ENCOUNTER 2024-08-08 04:37 | Emergency (ER) | payer MEDICARE, OTHER ==
[~2024-08-08] VITALS: Ht 165.1 cm; Wt 76.1 kg
[2024-08-08 05:16] LABS: BASO % 0.7 % (0.0-1.0); EOS # 0.1 10^3/uL (0.0-0.5); HEMATOCRIT 43.1 % (36.0-47.0); HEMOGLOBIN 14.3 g/dl (12.0-15.5); LYMPH # 1.6 10^3/uL (1.5-5.0); MEAN CORPUSCULAR HGB CONC 33.2 g/dl (32.0-36.5); MEAN CORPUSCULAR VOLUME 90.5 fl (80.0-96.0); MONO # 0.8 10^3/uL (0.0-0.8); MONO % 13.3 % (2.0-8.0); NEUTROPHILS # 3.4 10^3/uL (1.5-8.5); NEUTROPHILS % 56.7 % (36.0-66.0); PLATELET COUNT, AUTOMATED 253 10^3/uL (150-450); RED BLOOD COUNT 4.76 10^6/uL (4.00-5.40); WHITE BLOOD COUNT 5.9 10^3/uL (4.0-10.0)
[2024-08-08 05:37] LABS: CK-MB VALUE MASS 1.1 NG/ML (<3.6)
[2024-08-08 05:39] LABS: BLOOD UREA NITROGEN 16 MG/DL (9-23); CALCIUM LEVEL 9.3 MG/DL (8.3-10.6); CARBON DIOXIDE LEVEL 26 MMOL/L (20-31); CHLORIDE LEVEL 106 MMOL/L (98-107); CPK CREATINE PHOSPHOKINASE 82 U/L (34-145); CREATININE FOR GFR 0.87 MG/DL (0.55-1.30); GLUCOSE, FASTING 114 MG/DL (74-106); MB/CK RELATIVE INDEX 1.34 (< OR =4); POTASSIUM SERUM 4.3 MMOL/L (3.5-5.1); SODIUM LEVEL 143 MMOL/L (136-145)
[2024-08-08 06:41] LABS: CK-MB VALUE MASS < 1.0 NG/ML (<3.6)
[2024-08-08 06:44] LABS: CPK CREATINE PHOSPHOKINASE 65 U/L (34-145); MB/CK RELATIVE INDEX 1.53 (< OR =4)
[2024-08-08] MEDS ORDERED: ISOVUE-370 76% 100ML VIAL As Ordered ONE (07:30)
[2024-08-08 09:07] VITALS: BP 136/80; TEMP 97.8; O2SAT 97
== END 2024-08-08 09:30 | disposition home or self-care (01) ==
LOC: M ED 04:37
DX: R07.89 Other chest pain (principal); E11.9 Type 2 diabetes mellitus without complications; I10 Essential (primary) hypertension; E78.5 Hyperlipidemia, unspecified; I25.2 Old myocardial infarction; Z86.73 Personal history of transient ischemic attack (TIA), and cerebral infarction without residual deficits; Z88.6 Allergy status to analgesic agent; Z88.8 Allergy status to other drugs, medicaments and biological substances; Z91.040 Latex allergy status; Z79.899 Other long term (current) drug therapy
CPT/HCPCS: 36415; 71045; 71275; 80048; 82550; 82553; 84484; 85025; 93005; 93041; 94760; 99285; Q9967

== ENCOUNTER 2024-11-05 18:46 | Emergency (ER) | payer MEDICARE, OTHER ==
[~2024-11-05] VITALS: Ht 165.1 cm; Wt 75.5 kg
[2024-11-06 06:20] LABS: BASO # 0.1 10^3/uL (0.0-0.2); BASO % 0.8 % (0.0-1.0); EOS # 0.1 10^3/uL (0.0-0.5); EOS % 1.5 % (0.0-3.0); LYMPH # 1.6 10^3/uL (1.5-5.0); LYMPH % 26.3 % (24.0-44.0); MONO # 0.8 10^3/uL (0.0-0.8); MONO % 12.6 % (2.0-8.0); NEUTROPHILS # 3.5 10^3/uL (1.5-8.5); NEUTROPHILS % 58.3 % (36.0-66.0); PLATELET COUNT, AUTOMATED 252 10^3/uL (150-450)
[2024-11-06] MEDS ORDERED: FENO48TA8 PO (06:25)
[2024-11-06 06:54] LABS: CALCIUM LEVEL 9.4 MG/DL (8.3-10.6); CARBON DIOXIDE LEVEL 25 MMOL/L (20-31); CHLORIDE LEVEL 104 MMOL/L (98-107); CK-MB VALUE MASS 1.8 NG/ML (<3.6); CREATININE FOR GFR 0.80 MG/DL (0.55-1.30); GLOMERULAR FILTRATION RATE 76.3 (>39); POTASSIUM SERUM 4.1 MMOL/L (3.5-5.1); SODIUM LEVEL 142 MMOL/L (136-145)
[2024-11-06 06:59] LABS: CPK CREATINE PHOSPHOKINASE 101 U/L (34-145); MB/CK RELATIVE INDEX 1.78 (< OR =4)
[2024-11-06] MEDS ORDERED: HOME MED LIST COMPLETE! XX SCH (07:45)
[2024-11-06] MEDS ORDERED: ISOVUE-370 76% 100 ML VIAL As Ordered ONE (08:27)
[2024-11-06 09:01] LABS: CK-MB VALUE MASS 2.1 NG/ML (<3.6)
[2024-11-06 09:06] LABS: CPK CREATINE PHOSPHOKINASE 91 U/L (34-145); MB/CK RELATIVE INDEX 2.30 (< OR =4)
[2024-11-06 10:01] VITALS: BP 148/78; TEMP 97.3; O2SAT 98
== END 2024-11-06 10:02 | disposition home or self-care (01) ==
LOC: M ED 18:46
DX: I10 Essential (primary) hypertension (principal); R00.1 Bradycardia, unspecified; K76.0 Fatty (change of) liver, not elsewhere classified; K21.9 Gastro-esophageal reflux disease without esophagitis; D35.1 Benign neoplasm of parathyroid gland; K44.9 Diaphragmatic hernia without obstruction or gangrene; F41.9 Anxiety disorder, unspecified; Z86.73 Personal history of transient ischemic attack (TIA), and cerebral infarction without residual deficits; Z88.6 Allergy status to analgesic agent; Z88.8 Allergy status to other drugs, medicaments and biological substances; Z91.040 Latex allergy status; Z91.018 Allergy to other foods; Z79.899 Other long term (current) drug therapy; Z79.01 Long term (current) use of anticoagulants
CPT/HCPCS: 36415; 71275; 80048; 82550; 82553; 84484; 85025; 93005; 99285; Q9967

== ENCOUNTER 2024-12-15 07:04 | Emergency (ER) | payer MEDICARE, OTHER ==
[~2024-12-15] VITALS: Ht 165.1 cm; Wt 75.4 kg
[~2024-12-15 07:04] MED LIST changes: +FENO48TA8 PO
[2024-12-15] MEDS ORDERED: HOME MED LIST COMPLETE! XX SCH (09:10)
[2024-12-15 09:54] LABS: PLATELET COUNT, AUTOMATED 265 10^3/uL (150-450)
[2024-12-15 10:12] LABS: ALT/SGPT 49.0 U/L (7.0-40); AST/SGOT 30.0 U/L (<34); CALCIUM LEVEL 9.9 MG/DL (8.3-10.6); CARBON DIOXIDE LEVEL 27.0 MMOL/L (20-31); CHLORIDE LEVEL 105.0 MMOL/L (98-107); CREATININE FOR GFR 0.81 MG/DL (0.55-1.30); GLOMERULAR FILTRATION RATE 75.2 (>39); MAGNESIUM LEVEL 2.1 MG/DL (1.8-2.4); POTASSIUM SERUM 4.9 MMOL/L (3.5-5.1); SODIUM LEVEL 142.0 MMOL/L (136-145)
[2024-12-15 12:15] VITALS: BP 146/55; O2SAT 99
[2024-12-15 12:35] VITALS: TEMP 96.9
== END 2024-12-15 12:37 | disposition home or self-care (01) ==
LOC: M ED 07:04
DX: I10 Essential (primary) hypertension (principal); R20.2 Paresthesia of skin; I25.2 Old myocardial infarction; E11.9 Type 2 diabetes mellitus without complications; G43.909 Migraine, unspecified, not intractable, without status migrainosus; G47.30 Sleep apnea, unspecified; G40.909 Epilepsy, unspecified, not intractable, without status epilepticus; Z88.6 Allergy status to analgesic agent; Z88.8 Allergy status to other drugs, medicaments and biological substances; Z91.018 Allergy to other foods; Z88.7 Allergy status to serum and vaccine; Z86.73 Personal history of transient ischemic attack (TIA), and cerebral infarction without residual deficits; Z79.02 Long term (current) use of antithrombotics/antiplatelets; Z79.899 Other long term (current) drug therapy

== ENCOUNTER 2024-12-22 21:48 | Emergency (ER) | payer MEDICARE, OTHER ==
[2024-12-22 22:18] LABS: BASO # 0.1 10^3/uL (0.0-0.2); BASO % 0.6 % (0.0-1.0); EOS # 0.1 10^3/uL (0.0-0.5); EOS % 1.1 % (0.0-3.0); LYMPH # 1.9 10^3/uL (1.5-5.0); LYMPH % 22.4 % (24.0-44.0); MONO # 1.0 10^3/uL (0.0-0.8); MONO % 12.0 % (2.0-8.0); NEUTROPHILS # 5.4 10^3/uL (1.5-8.5); NEUTROPHILS % 63.5 % (36.0-66.0); PLATELET COUNT, AUTOMATED 239 10^3/uL (150-450)
[2024-12-22 22:20] VITALS: TEMP 97.4
[2024-12-22 22:59] LABS: CALCIUM LEVEL 9.8 MG/DL (8.3-10.6); CARBON DIOXIDE LEVEL 25.0 MMOL/L (20-31); CHLORIDE LEVEL 105.0 MMOL/L (98-107); CK-MB VALUE MASS 1.6 NG/ML (<3.6); CPK CREATINE PHOSPHOKINASE 126.0 U/L (34-145); CREATININE FOR GFR 0.81 MG/DL (0.55-1.30); GLOMERULAR FILTRATION RATE 75.2 (>39); MB/CK RELATIVE INDEX 1.26 (< OR =4); POTASSIUM SERUM 4.9 MMOL/L (3.5-5.1); SODIUM LEVEL 142.0 MMOL/L (136-145)
[2024-12-23] MEDS: ACETAMINOPHEN *IV* 1,000 MG in IV 1 EA IV ONE (00:15)
[2024-12-23 00:19] LABS: CK-MB VALUE MASS 1.4 NG/ML (<3.6)
[2024-12-23 00:23] LABS: CPK CREATINE PHOSPHOKINASE 73.0 U/L (34-145); MB/CK RELATIVE INDEX 1.91 (< OR =4)
[2024-12-23 00:30] VITALS: BP 192/84
[2024-12-23 00:48] VITALS: O2SAT 99
== END 2024-12-23 01:07 | disposition home or self-care (01) ==
LOC: M ED 21:48
DX: R07.9 Chest pain, unspecified (principal); I10 Essential (primary) hypertension; R00.1 Bradycardia, unspecified; E78.5 Hyperlipidemia, unspecified; E55.9 Vitamin D deficiency, unspecified; E11.9 Type 2 diabetes mellitus without complications; Z79.84 Long term (current) use of oral hypoglycemic drugs; Z88.6 Allergy status to analgesic agent; Z88.8 Allergy status to other drugs, medicaments and biological substances; Z91.040 Latex allergy status; Z91.018 Allergy to other foods; Z79.02 Long term (current) use of antithrombotics/antiplatelets; Z79.899 Other long term (current) drug therapy

== ENCOUNTER 2025-01-05 02:29 | Emergency (ER) | payer MEDICARE, OTHER ==
[~2025-01-05] VITALS: Ht 165.1 cm; Wt 77.3 kg
[2025-01-05 04:41] LABS: BASO # 0.0 10^3/uL (0.0-0.2); BASO % 0.6 % (0.0-1.0); EOS # 0.1 10^3/uL (0.0-0.5); EOS % 1.4 % (0.0-3.0); LYMPH # 1.4 10^3/uL (1.5-5.0); LYMPH % 21.5 % (24.0-44.0); MONO # 0.8 10^3/uL (0.0-0.8); MONO % 12.1 % (2.0-8.0); NEUTROPHILS # 4.3 10^3/uL (1.5-8.5); NEUTROPHILS % 64.2 % (36.0-66.0); PLATELET COUNT, AUTOMATED 231 10^3/uL (150-450)
[2025-01-05 04:59] LABS: KETONE, URINE AUTO RFX NEGATIVE (NEGATIVE); RBC, URINE AUTO RFX 3 /HPF (0-3); SQUAM EPITHELIAL CELL UR AURFX 1 /HPF (0-6); WBC, URINE AUTO RFX 8 /HPF (0-3); YEAST LIKE CELL URINE AUTO RFX SMALL
[2025-01-05 05:13] LABS: LEUKOCYTE ESTERASE UR AUTO RFX TRACE (NEGATIVE); NITRITE, URINE AUTO RFX POSITIVE (NEGATIVE)
[2025-01-05 05:31] LABS: CK-MB VALUE MASS 1.2 NG/ML (<3.6)
[2025-01-05 05:33] LABS: ALT/SGPT 34 U/L (7.0-40); AST/SGOT 23 U/L (<34); CALCIUM LEVEL 9.0 MG/DL (8.3-10.6); CARBON DIOXIDE LEVEL 24 MMOL/L (20-31); CHLORIDE LEVEL 106 MMOL/L (98-107); CREATININE FOR GFR 0.83 MG/DL (0.55-1.30); GLOMERULAR FILTRATION RATE 73.0 (>39); MAGNESIUM LEVEL 2.0 MG/DL (1.8-2.4); POTASSIUM SERUM 4.2 MMOL/L (3.5-5.1); SODIUM LEVEL 141 MMOL/L (136-145)
[2025-01-05 05:34] LABS: CPK CREATINE PHOSPHOKINASE 79 U/L (34-145); MB/CK RELATIVE INDEX 1.51 (< OR =4)
[2025-01-05] MEDS ORDERED: CEFD1CAP9 PO (07:19)
[2025-01-05 07:25] VITALS: BP 158/82; TEMP 96.8; O2SAT 99
[2025-01-05] MEDS: CEFDINIR 300 MG CAP PO ONE (07:40)
== END 2025-01-05 08:11 | disposition home or self-care (01) ==
LOC: M ED 02:29 → EDBD 02:29 → M ED 08:11
DX: N30.00 Acute cystitis without hematuria (principal); I10 Essential (primary) hypertension; F41.1 Generalized anxiety disorder; R00.1 Bradycardia, unspecified; M10.9 Gout, unspecified; G47.33 Obstructive sleep apnea (adult) (pediatric); I25.2 Old myocardial infarction; E78.5 Hyperlipidemia, unspecified; G43.909 Migraine, unspecified, not intractable, without status migrainosus; Z90.13 Acquired absence of bilateral breasts and nipples; Z86.73 Personal history of transient ischemic attack (TIA), and cerebral infarction without residual deficits; Z91.048 Other nonmedicinal substance allergy status; Z91.018 Allergy to other foods; Z91.040 Latex allergy status; Z88.8 Allergy status to other drugs, medicaments and biological substances; Z88.6 Allergy status to analgesic agent; Z79.02 Long term (current) use of antithrombotics/antiplatelets; Z79.2 Long term (current) use of antibiotics; Z79.899 Other long term (current) drug therapy

== ENCOUNTER → 2025-02-15 | Outpatient (REF) | payer MEDICARE, OTHER ==
[~2025-02-15] MED LIST changes: +CEFD1CAP9 PO
== END ==
LOC: M LAB REF 14:15
PROVIDERS: ATTEND Student in an Organized Health Care Education/Training Program
DX: R30.0 Dysuria (principal)

== ENCOUNTER → 2025-02-17 | Outpatient (REF) | payer MEDICARE, OTHER | LOC: M LAB REF 17:00 | PROVIDERS: ATTEND Physician Assistant | DX: R30.0 Dysuria (principal) ==

== ENCOUNTER → 2025-02-26 | Outpatient (REF) | payer MEDICARE, OTHER | LOC: M SFHCPLAZ 11:31 | PROVIDERS: ATTEND Family Medicine | DX: Z53.9 Procedure and treatment not carried out, unspecified reason (principal) ==

== ENCOUNTER → 2025-04-08 | Outpatient (REF) | payer MEDICARE, OTHER ==
[~2025-04-08] MED LIST changes: -LABE100T6 PO; +LABE100T91 PO
== END ==
LOC: M SFHCPLAZ 09:36
PROVIDERS: ATTEND Family Medicine
DX: Z53.9 Procedure and treatment not carried out, unspecified reason (principal)

== ENCOUNTER → 2025-04-08 | Outpatient (CLI) | payer MEDICARE, OTHER | LOC: M PLALAB 10:08 | PROVIDERS: ATTEND Family Medicine | DX: R25.2 Cramp and spasm (principal) ==

== ENCOUNTER → 2025-04-13 | Outpatient (REF) | payer MEDICARE, OTHER | LOC: M SFHCPLAZ 09:03 | PROVIDERS: ATTEND Family Medicine | DX: Z53.9 Procedure and treatment not carried out, unspecified reason (principal) ==

== ENCOUNTER → 2025-04-20 | Outpatient (REF) | payer MEDICARE, OTHER ==
[2025-04-20 15:47] LABS: PLATELET COUNT, AUTOMATED 251 10^3/uL (150-450)
[2025-04-20 15:54] LABS: ESTIMATED AVERAGE GLUCOSE 163.0 MG/DL (60-110)
[2025-04-20 16:20] LABS: ALT/SGPT 50.0 U/L (7.0-40); AST/SGOT 31.0 U/L (<34); CALCIUM LEVEL 9.8 MG/DL (8.3-10.6); CARBON DIOXIDE LEVEL 29.0 MMOL/L (20-31); CHLORIDE LEVEL 102.0 MMOL/L (98-107); CHOLESTEROL LEVEL 187.0 MG/DL (<200); CHOLESTEROL RISK RATIO 3.4 (<5); CREATININE FOR GFR 0.98 MG/DL (0.55-1.30); GLOMERULAR FILTRATION RATE 59.8 (>39); LDL CHOLESTEROL 81.7 MG/DL (<100); NON-HDL-C 132.1 MG/DL; POTASSIUM SERUM 4.2 MMOL/L (3.5-5.1); SODIUM LEVEL 140.0 MMOL/L (136-145); TRIGLYCERIDES LEVEL 252.0 MG/DL (<150)
[2025-04-20 16:22] LABS: FREE T4 1.05 NG/DL (0.89-1.76)
== END ==
LOC: M LABDRAWP 15:04
PROVIDERS: ATTEND Family Medicine
DX: E11.311 Type 2 diabetes mellitus with unspecified diabetic retinopathy with macular edema (principal); E03.9 Hypothyroidism, unspecified; E78.2 Mixed hyperlipidemia; I10 Essential (primary) hypertension